=== PATIENT | female | born 1955 | race Caucasian/White ===

== ENCOUNTER 2020-02-22 08:20 | Outpatient (CLI) | payer MEDICARE, OTHER, SELFPAY ==
--- NOTE | ~2020-02-22 | CT_ITS ---
EXAMINATION: CT chest wo con DATE: 02/22/2020 08:51 INDICATION: Solitary pulmonary nodule TECHNIQUE: Computed tomography (CT) of the chest was performed without intravenous contrast. Automate d exposure control and iterative reconstruction technique were employed. Exam dose: 114.42 mGy-cm to ericka exam DLP. COMPARISON: 01/04/2019 CT chest 01/11/2017 CT chest abdomen pelvis FINDINGS: Normal heart size. Coronary artery calcifications. No pericardial or pleural effusion. No thoracic aortic aneurysm is evident. No hilar or mediastinal mass lesion or lymphadenopathy. There is thyroid goiter with multiple thyroid nodules, also present on 01/11/2017. There is complete resolution of the previously reported up to 9 mm mass in the left lower lobe. No suspicious pulmonary mass lesion. No pulmonary infiltrate or consolidation. Small sliding hiatal hernia. There are multiple stable hepatic cysts compared to 01/11/2017 CT abdomen examination. Status post cholecystectomy. The adrenal glands are of normal morphology. There is diffuse idiopathic skeletal hyperostosis of the thoracic spine. No suspicious osteolytic or osteoblastic lesions are noted. IMPRESSION: Complete resolution of 9 mm left lower lobe nodule, consistent with resolved presumably benign process, likely a pulmonary granuloma Reviewed, dictated and finalized at Location A. Reviewed, dictated and finalized at location B. IMPRESSION: Complete resolution of 9 mm left lower lobe nodule, consistent wit h resolved presumably benign process, likely a pulmonary granuloma
== END 2020-02-22 08:21 | disposition home or self-care (01) ==
LOC: ANHIMG 08:30
PROVIDERS: PCP Internal Medicine; Visit Provider Internal Medicine Critical Care Medicine
DX: R91.1 Solitary pulmonary nodule (principal)
CPT/HCPCS: 71250

== ENCOUNTER 2020-06-05 13:32 | Outpatient (CLI) | payer MEDICARE, OTHER, SELFPAY ==
--- NOTE | ~2020-06-05 | US_ITS ---
EXAMINATION: US thyroid EXAM DATE: 06/05/2020 14:04 INDICATION: hypothyroidism E03.9 Hypothyroidism, unspecified. TECHNIQUE: Multiple grayscale and Doppler images of the thyroid were obtained (by a technologist who performed the scan) and subsequently reviewed. Individual nodules and recommendations may be reporte d in accordance with TI-RADS system as designated by the 2017 ACR White Paper TI-RADS committee. Rey hagen is made to prior examination from 06/19/2019. FINDINGS: The right thyroid lobe measures 5.7 x 3.2 x 2.8 cm, the left measuring 5.4 x 3.1 x 2.3 cm, moderately enlarged. There is diffusely heterogeneous thyroid echogenicity with scattered thyroid nodules which are have continued to demonstrate longterm stability, consistent with benign histology. Diffuse thy roid hypervascularity. IMPRESSION: Stable multinodular goiter. Return to clinical follow-up and if additional palpable abn ormality develops a repeat ultrasound can be obtained. Reviewed, dictated and finalized at location B. 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 Return to clinical follow-up and if a dditional palpable abnormality develops a repeat ultrasound can be obtained.
== END 2020-06-05 13:33 | disposition home or self-care (01) ==
LOC: ANHIMG 13:40
PROVIDERS: PCP Internal Medicine; Visit Provider Internal Medicine Endocrinology, Diabetes & Metabolism
DX: E03.9 Hypothyroidism, unspecified (principal); E04.2 Nontoxic multinodular goiter
CPT/HCPCS: 76536

== ENCOUNTER 2020-06-12 07:50 | Outpatient (CLI) | payer MEDICARE, OTHER, SELFPAY ==
--- NOTE | ~2020-06-12 | DEXA_ITS ---
Bone Density Report Name: Erin Cameron Age: 64 Sex: Female Ethnicity: White Date of : 1955 Indication: postmenopausal; height loss; prior fracture; asthma or emphysema; Referring Provider: Stephanie, Elena Ardon Study: Bone densitometry was performed. Exam Date: June 12, 2020 Accession number: [id number] Bone Density: Region BMD T-score Z-score Classification AP Spine (L1-L4) 0.943 -0.9 0.9 Normal Femoral Neck (Left) 0.579 -2.4 -0.9 Osteopenia Total Hip (Left) 0.707 -1.9 -0.7 Osteopenia Total Hip Bilateral Avg 0.728 -1.8 -0.5 Osteopenia Femoral Neck (Right) 0.620 -2.1 -0.5 Osteopenia Total Hip (Right) 0.747 -1.6 -0.3 Osteopenia World Health Organization criteria for BMD impression classify patients as: Normal (T-score at or above -1.0), Osteopenia (T-score between -1.0 and -2.5), or Osteoporosis (T-score at or below -2.5). 10-year Fracture Risk(1): Major Osteoporotic Fracture 19% Hip Fracture 3.6% Reported Risk Factors: [place] (), Neck BMD=0.579, BMI=32.0, previous fracture (1) FRAX(R) Version 3.08. Fracture probability calculated for an untreated patient. Fracture probability may be lower if the patient has received treatment. Clinical Information Provided by Patient: Has had a low trauma fracture Has used the following medications: Vitamin D Has the following medical conditions: Asthma or Emphysema Patient maximum height was 66 Menopause Age: 49 No regular weight bearing exercise Drinks caffeinated beverages Onset of menses at age 12 Number of children 3 Impression: The patient has low bone mass, based on the Left Femoral Neck T-score. The patient has an estimated ten-year risk of hip fracture of 3.6% and an estimated ten-year risk of major fracture of 19%, based on the WHO FRAX algorithm. The patient has risk factors, including: previous fracture. Discussion: BONE DENSITY IS LOW AT ONE OR MORE SKELETAL SITES. THE PATIENT'S BMD AND CLINICAL RISK FACTORS CONTRIBUTE TO THIS PATIENT'S INCREASED RISK OF FRACTURE. This patient's lowest T-score is low at one or more skeletal sites. It meets the World Health Organization's (WHO) criteria for ?low bone mass? (T-score between -1.0 and -2.5). The patient's 10-year risk of hip fracture as calculated by FRAX exceeds the threshold where pharmacological therapy is recommended by the National Osteoporosis Foundation (NOF). However, all treatment decisions require clinical judgment and consideration of individual patient factors, including patient preferences, comorbidities, previous drug use, risk factors not captured in the FRAX model (e.g., frailty, falls, vitamin D deficiency, increased bone turnover, interval significant decline in bone density) and possible under or overestimation of fracture risk by FRAX. The patient should follow a
--- NOTE | ~2020-06-12 | MM_ITS ---
EXAMINATION: MM screening [facility] BI w richard HISTORY: Screening mammogram TECHNIQUE: Craniocaudal and mediolateral oblique 3-D tomosynthesis images were obtained and synthetic 2-D images were generated. CAD analysis was submitted and interpreted. COMPARISON: 05/03/2019, 03/29/2018, 03/18/2018, 03/15/2017 BREAST PARENCHYMAL COMPOSITION: There are scattered areas of fibroglandular density. FINDINGS: There is no evidence of suspicious mass, calcification, or architectural distortion to sugg est malignancy in either breast. There has been no suspicious interval change. IMPRESSION: 1. No mammographic evidence of malignancy. 2. Recommend routine screening mammography in one year. BI-RADS Category 1: Negative Reviewed, dictated and finalized at location A. CHECKER
== END 2020-06-12 07:51 | disposition home or self-care (01) ==
PROVIDERS: PCP Internal Medicine; Visit Provider Nurse Practitioner Obstetrics & Gynecology
DX: Z12.31 Encounter for screening mammogram for malignant neoplasm of breast (principal); N95.1 Menopausal and female climacteric states; M85.852 Other specified disorders of bone density and structure, left thigh; M85.851 Other specified disorders of bone density and structure, right thigh
CPT/HCPCS: 77063; 77067; 77080

== ENCOUNTER 2020-11-08 14:13 | Outpatient (CLI) | payer MEDICARE, OTHER, SELFPAY ==
--- NOTE | ~2020-11-08 | CT_ITS ---
CORRECTED REPORT EXAMINATION DESCRIPTION CORRECTED. 11/12/2020 JOHN EXAMINATION: CT LE LT wo con DATE: 11/08/2020 15:52 INDICATION: Left knee unilateral primary osteoarthritis. TECHNIQUE: Computed tomography (CT) of the left hip, knee, and ankle was performed without intravenous contrast. Automated exposure control and iterative reconstruction technique were employed. The dose-length product was 2422.06 mGy- cm. COMPARISON: None FINDINGS: Bone alignment is normal. No fracture. There is mild left hip osteoarthritis. Left knee demonstrates severe osteoarthritis of the medial and patellofemoral compartments and moderate osteoarthritis of lateral compartment. There is a small knee joint effusion. Achilles tendinopathy is noted. IMPRESSION: 1. Severe left knee osteoarthritis. 2. Small left knee joint effusion. Reviewed, dictated and finalized at location A. MTDD
[2020-11-08 15:34] LABS: Hematocrit 41.2 % (37.0-47.0); Hemoglobin 13.7 g/dL (12.0-15.0)
[2020-11-08 15:45] LABS: Albumin Level 4.3 g/dL (3.5-5.1); Estimated Glomerular Filt Rate > 60; Glucose 106 mg/dL (65-105)
--- NOTE | 2020-11-08 15:54 | ECG_ITS ---
Measurements Intervals [place] Rate: 87 P: 54 TN: 142 QRS: 48 QRSD: 89 T: 41 QT: 334 QTc: 403 Interpretive Statements SINUS RHYTHM NORMAL ECG Electronically Signed On 11-08-2020 16:11:40 CDT by Channing Robin D.O.
== END 2020-11-08 14:14 | disposition home or self-care (01) ==
PROVIDERS: PCP Internal Medicine; Visit Provider Orthopaedic Surgery
DX: G47.33 Obstructive sleep apnea (adult) (pediatric) (principal); I10 Essential (primary) hypertension; E11.9 Type 2 diabetes mellitus without complications; E03.9 Hypothyroidism, unspecified; M17.12 Unilateral primary osteoarthritis, left knee
CPT/HCPCS: 36415; 73700; 82040; 82565; 82947; 85014; 85018; 93005

== ENCOUNTER 2020-12-12 09:43 | Outpatient (CLI) | payer MEDICARE, OTHER, SELFPAY ==
[2020-12-12 11:12] LABS: Basophils Percent Auto 0.6 % (0.2-1.2); Eosinophils Absolute Auto 0.4 K/mm3 (0-0.3); Eosinophils Percent Auto 5.6 % (0-4.4); Hematocrit 44.7 % (37.0-47.0); Hemoglobin 14.3 g/dL (12.0-15.0); Immature Granulocyte Absolute 0.01 K/mm3 (0.00-0.031); Immature Granulocyte Percent A 0.2 % (0-0.5); Lymphocytes Absolute Auto 1.59 K/mm3 (0.9-3.2); Lymphocytes Percent Auto 25.4 % (18.3-44.2); Mean Corpuscular Hemoglobin 29.4 pg (26-34); Mean Platelet Volume 9.5 fl (7.4-10.4); Monocytes Absolute Auto 0.6 K/mm3 (0.1-0.6); Monocytes Percent Auto 9.9 % (2.6-8.5); Neutrophils Absolute Auto 3.6 K/mm3 (1.3-6.7); Neutrophils Percent Auto 58.3 % (45.5-73.1); Platelet Count Result 241 k/mm3 (150-375); Red Blood Count 4.86 M/mm3 (4.2-5.4); Red Cell Distribution Width 13.1 % (11.5-14.5); White Blood Count 6.3 K/mm3 (4.5-10.0)
[2020-12-12 11:31] LABS: Urine Cotinine NEGATIVE
== END 2020-12-12 09:44 | disposition home or self-care (01) ==
LOC: ANHSURGERY 09:45
PROVIDERS: PCP Internal Medicine; Visit Provider Orthopaedic Surgery
DX: M17.12 Unilateral primary osteoarthritis, left knee (principal); Z01.818 Encounter for other preprocedural examination
CPT/HCPCS: 80307; 85025; 87081

== ENCOUNTER → 2020-12-23 02:00 | Outpatient (CLI) | payer MEDICARE, OTHER, SELFPAY ==
[2020-12-25 12:59] LABS: SARS-CoV-2 RNA PCR Negative
== END ==
PROVIDERS: PCP Internal Medicine; Visit Provider Orthopaedic Surgery
DX: Z01.812 Encounter for preprocedural laboratory examination (principal); Z20.822 Contact with and (suspected) exposure to COVID-19
CPT/HCPCS: C9803; U0003; U0005

== ENCOUNTER 2020-12-27 14:16 | Observation (INO) | payer MEDICARE, OTHER, SELFPAY ==
[2020-12-12 09:53] VITALS: BMI 33.3
[2020-12-12 10:57] VITALS: BP 154/85; PULSE 85; RESP 16; TEMP 37.2; O2SAT 98
--- NOTE | 2020-12-25 10:27 | WPDANESEPPF ---
Anes - Initial Pre Proc Eval Procedure: Operation Date: 12/26/20 07:30 Proposed Procedures p Left Total Knee Replacement - Artie Marino MD Date/Time: 12/25/20 10:27 Surgeon: Artie Marino MD Pre Op Diagnosis: primary OA, left knee Patient Data Age: 65 Gender: F Height: 1.65 m Weight: 90.8 kg Last Vital Signs Temp 37.2 C 12/12/20 10:57 Pulse 85 12/12/20 10:57 Resp 16 12/12/20 10:57 BP 154/85 H 12/12/20 10:57 Pulse Ox 98 12/12/20 10:57 Allergies Allergy/AdvReac Type Severity Reaction Status Date / Time hydromorphone Allergy Intermediate Hives Verified 12/26/20 06:13 lisinopril Allergy Intermediate Headache Verified 12/26/20 06:13 povidone Allergy Intermediate Rash Verified 12/26/20 06:13 theophylline Allergy Intermediate Itching Verified 12/26/20 06:13 CIMETIDINE HCL AdvReac Intermediate Gastrointestinal Uncoded 12/26/20 06:13 Upset Home Medications Medication Instructions Recorded Confirmed Type grape seed extract 50 mg capsule 50 mg PO DAILY 06/09/19 12/26/20 History milk thistle 175 mg tablet 175 mg PO DAILY 06/09/19 12/26/20 History multivitamin 1 tablet PO DAILY 06/09/19 12/26/20 History naproxen sodium 220 mg capsule 220 mg PO PRN PRN 06/09/19 12/26/20 History olive leaf extract 250 mg capsule 250 mg PO DAILY 06/09/19 12/26/20 History raloxifene 60 mg tablet 60 mg PO DAILY 06/09/19 12/12/20 History diphenhydramine HCl 25 mg capsule 25 mg PO PRN PRN cap 05/16/20 12/12/20 History famotidine 20 mg tablet 20 mg PO PRN PRN 05/16/20 12/12/20 History esomeprazole magnesium 20 mg 20 mg PO PRN PRN 10/31/20 12/12/20 History capsule,delayed release omega-3 fatty acids 1,000 mg 1,000 mg PO DAILY 10/31/20 12/26/20 History capsule psyllium husk 0.4 gram capsule 0.4 g PO DAILY 10/31/20 12/26/20 History L.acidoph, paracasei,B. lactis 10 10 cell PO DAILY 11/18/20 12/26/20 History billion cell capsule cholecalciferol (vitamin D3) 10 2,500 mcg PO DAILY cap 11/18/20 12/26/20 History mcg (400 unit) capsule coenzyme [id number] E 100 mg-100 1 cap PO DAILY 11/18/20 12/26/20 History unit capsule magnesium 200 mg tablet 400 mg PO DAILY tablet 11/18/20 12/26/20 History valsartan 320 mg tablet 320 mg PO DAILY #90 tablet 11/18/20 12/26/20 Rx blood sugar diagnostic #100 ea 11/29/20 12/04/20 Rx cetirizine [Allergy Relief 10 mg PO DAILY PRN 12/12/20 12/12/20 History (cetirizine)] Patient hx anesthesia problems: none Family hx anesthesia problems: none PMFSH Past Medical History Medical History Asthma Hyperglycemia Hypothyroidism OIZEL (obstructive sleep apnea) Osteopenia Prediabetes Pulmonary nodule Thyroid Nodule Type 2 diabetes mellitus Type 2 diabetes mellitus with hyperglycemia Vitamin D deficiency, unspecified Surgical History Surgical History History of arthroscopy of left knee 01/27/01 and 07/19/15 History of arthroscopy of right knee 07/31/99 and 12/17/10 History of total knee arthroplasty Right 11/28/14 Family History Family History Mother Hypertension Asthma Family history of hepatitis Family history of lung cancer Patient's mother is Father Family history of diabetes mellitus in first degree relative Family history of hearing loss Patient's father is Diabetes mellitus Grandparent Family history of cardiovascular disease Family history of respiratory disorder Family history of malignant neoplasm of stomach Family history of pancreatic cancer Social History Social History Smoking status: Never smoker Second hand tobacco smoke exposure: No Additional smoking assessment comments: DENIES ANY FORM OF TOBACCO USE Alcohol intake: never Living arrangements: alone Spiritual c
--- NOTE | 2020-12-25 10:28 | WPDANESPNB ---
Anes - Peripheral Nerve Block Date/Time: 12/25/20 10:28 I have discussed with the patient/family/POA the placement of a peripheral nerve block for post-operative pain management, including associated risks, benefits, complications, and side effects. Alternative methods of post-operative analgesia were detailed. Questions were solicited and answers provided to the satisfaction of the patient/family/POA. Time-Out: A pre-procedural Time-Out was completed immediately before starting the procedure and confirmed: Patient Identification, Site, Procedure, Patient Position and the Availability of Requisite Equipment. Clinical Indications: Acute post-operative pain management requested by the operative surgeon. Nerve Block Insertion Note Anes-nerve block: adductor canal right Patient position: supine Skin prep: chlorhexidine Needle: 22 gauge, stimulating, insulated echogenic needle. Needle length: 80 mm Technique: ultrasound Injectate: bupivacaine 0.5% with epi 5 mcg/ml (30cc - no epi) Observations: tolerated well Complications: none Procedure start time:: 714 Procedure end time:: 718
[2020-12-26] VITALS (13 sets, daily range): BP systolic 103–161; BP diastolic 46–76; PULSE 87–116; RESP 14–20; TEMP 36–36.4; O2SAT 93–99; BMI 33.3
[2020-12-26] MEDS: ACETAMINOPHEN 500 MG TABLET 1000 MG PO (06:23)
[2020-12-26] MEDS: LACTATED RINGERS 1,000 ML 30 ML IV CONT ×2 (06:45→11:02)
[2020-12-26] MEDS: TRANEXAMIC ACID 1,000MG/ISO100 1,000 MG/100 ML BAG 200 MG IVPB (06:54)
[2020-12-26 07:02] LABS: Glucose Point of Care 123 mg/dl (65-105)
--- NOTE | 2020-12-26 07:09 | WPDHPUPDATE1 ---
History and Physical Update Update Date/Time: 12/26/20 07:09 History and Physical has been reviewed, including an updated exam of the patient. There are NO changes in the patient's condition. Risks, benefits, and alternatives have been discussed and questions answered. Patient agrees to proceed with procedure.
[2020-12-26] MEDS: ceFAZolin 2 GM/D5W 50 ML 2 GM/50 ML BAG IVPB (07:22)
--- NOTE | 2020-12-26 11:45 | PM.PROC ---
Procedure Note - Detailed Date of procedure: 12/26/20 Pre-op diagnosis: primary OA, left knee Post-op diagnosis: same Procedure performed: Total knee arthroplasty, left. Description of procedure: Custom total knee implant with the Conformis knee system. She had a significant arthrofibrosis and contracture of 15-80 degrees. This was corrected from 0-115 degrees postoperatively. Anesthesia: GETA and regional (subsartorial nerve block) Surgeon: Artie Marino MD Media Sales Executive: Jacy Diehl PA-C Estimated blood loss (mL): 150 Drains: No Pathology: none sent Complications: None Condition: stable Disposition: PACU Findings: Physician medical billing assistant, Jacy Diehl PA-C, required for surgery; including patient positioning, draping, tissue retraction, maintaining instrument position, cement removal, wound closure, and dressing placement. Preoperative antibiotics were given. The limb was prepped and draped in the usual sterile fashion with a well-padded tourniquet high on the thigh. The limb was exsanguinated and the tourniquet inflated to 300 mmHg. A longitudinal incision was created just medial to the patella. A trivector approach to the knee was performed. Arthrotomy was taken down through the joint capsule. No significant releases were initially taken. The femur was exposed and the F1 jig was applied. The coring tool was used to remove the cartilage for the F2 jig to sit flush with the bone. The jig was pinned and the distal cut carefully taken. Caliper measurements confirmed appropriate bony resections according to the preoperative templated plan. The tibia was cut using the jig after removing cartilage for the Herbert to sit. Proper alignment was checked with the alignment earnestine. The tibia was cut through the jig. Gap balancing was performed. Cut was lightly refresh and anteromedially. The F-4 cutting jig for the femur was applied. The anterior and chamfer cut was taken. The posterior chamber cuts were taken, through the next jig. Gap measurements were taken and the knee was trialed. Excellent alignment and soft tissue balancing was confirmed. Posterior cruciate ligament was recessed along the proximal tibia. Lateral retinacular release was required due to significant arthrofibrosis. Patellar tracking was excellent. The patella was cut for resurfacing. Three lug drills were drilled. Meniscal remnants were removed. Knee was copiously irrigated periodically throughout the procedure. The real implants were cemented into position. Excess cement was carefully removed. After final trialing, the real tibial inserts were placed. The wound was closed in layers with interrupted 1. Vicryl suture, 2-0 strata fix suture, 0 strata fix suture, 2-0 strata fix suture. Steri-Strips placed on the skin with the knee flexed. Sterile bulky dressing applied. The patient was brought to the recovery room in stable condition. There were no complications.
[2020-12-26] MEDS: fentaNYL CITRATE INJ (*CRX) 100 MCG/2 ML VIAL 25 MCG IV PUSH ×2 (12:16→12:20)
--- NOTE | 2020-12-26 12:45 | ADMGEN ---
This patient, Erin Cameron, was admitted to 2 Medical Room 257-01. Patient/family oriented to hospital policies and general routines including ID bracelet, bed and alarms, visiting hours, pain management, procedures, bathroom and other care routines, personal items, smoking policy, room service/diet, and visiting hours. Information on how to activate the Rapid Response Team has been discussed. Patient/Family are encouraged to report perceived risks to care and to ask questions if they do not understand what they are told or what they should do.
[2020-12-26] MEDS: DOCUSATE SODIUM 100 MG CAPSULE PO (17:22)
[2020-12-26] MEDS: KETOROLAC 15 MG/ML VIAL (*BKC) IV PUSH ×2 (17:22→23:05)
[2020-12-26] MEDS: ASPIRIN 81 MG ENTERIC TABLET PO (17:22)
[2020-12-26] MEDS: FAMOTIDINE 20 MG TABLET PO (20:32)
[2020-12-26] MEDS: SENNOSIDES 8.6 MG TABLET 17.2 MG PO (20:33)
--- NOTE | ~2020-12-27 | XR_ITS ---
EXAMINATION: XR knee LT 2V DATE: 12/26/2020 11:14 INDICATION: Total left knee arthroplasty. Postop. TECHNIQUE: 2 views of left knee were obtained. COMPARISON: Left knee radiographs 10/31/2020 FINDINGS: There is a total left knee arthroplasty with patellar resurfacing. Tibia demonstrates 10 de grees posterior angulation with respect to the tibial component. No fracture. There is gas in the kne e joint and soft tissues, consistent with recent surgery. IMPRESSION: 1. New total left knee arthroplasty. Reviewed, dictated and finalized at location B.
[2020-12-27 01:54] VITALS: BP 141/67; PULSE 92; RESP 18; TEMP 36.5; O2SAT 96
[2020-12-27 05:28] LABS: Basophils Percent Auto 0.2 % (0.2-1.2); Eosinophils Absolute Auto 0.1 K/mm3 (0-0.3); Eosinophils Percent Auto 1.4 % (0-4.4); Hematocrit 32.5 % (37.0-47.0); Hemoglobin 10.5 g/dL (12.0-15.0); Immature Granulocyte Absolute 0.02 K/mm3 (0.00-0.031); Immature Granulocyte Percent A 0.2 % (0-0.5); Lymphocytes Absolute Auto 1.32 K/mm3 (0.9-3.2); Lymphocytes Percent Auto 16.3 % (18.3-44.2); Mean Corpuscular HGB Conc 32.3 g/dl (32-36); Mean Corpuscular Hemoglobin 29.5 pg (26-34); Mean Corpuscular Volume 91.3 fl (80-100); Mean Platelet Volume 9.6 fl (7.4-10.4); Monocytes Percent Auto 12.9 % (2.6-8.5); Neutrophils Absolute Auto 5.6 K/mm3 (1.3-6.7); Platelet Count Result 189 k/mm3 (150-375); Red Blood Count 3.56 M/mm3 (4.2-5.4); Red Cell Distribution Width 13.1 % (11.5-14.5); White Blood Count 8.1 K/mm3 (4.5-10.0)
[2020-12-27] MEDS: KETOROLAC 15 MG/ML VIAL (*BKC) IV PUSH ×3 (05:59→17:39)
[2020-12-27 06:01] LABS: Anion Gap 4 mmol/L (8-16); Blood Urea Nitrogen 14 mg/dL (7-17); Calcium 8.5 mg/dL (8.4-10.2); Carbon Dioxide 30 mmol/L (22-30); Chloride 106 mmol/L (98-107); Estimated CRCL calculation 76 ml/min; Estimated Glomerular Filt Rate > 60; Glucose 139 mg/dL (65-105); Potassium 3.8 mmol/L (3.4-5.0); Sodium 140 mmol/L (137-145)
[2020-12-27 06:21] VITALS: BP 119/46; PULSE 59; RESP 16; TEMP 36.4; O2SAT 97
--- NOTE | 2020-12-27 07:21 | WPDANESPN ---
Anes - Prog Note Post-Op Date/Time: 12/27/20 07:21 Cardiovascular status: normal Respiratory status: normal Airway patency: baseline Mental status: baseline Post-Op hydration status: normal Vital Signs: Last Vital Signs Temp 36.5 C 12/27/20 01:54 Pulse 92 12/27/20 01:54 Resp 18 12/27/20 01:54 BP 141/67 H 12/27/20 01:54 Pulse Ox 96 12/27/20 01:54 Pain Score (VAS): 2 I/O: Intake & Output 12/26/20 12/26/20 12/27/20 15:59 23:59 07:59 Intake Total 400 390 350 Balance 400 390 350 Laboratory Tests 12/27/20 05:17 12/27/20 05:17 12/27/20 12/27/20 05:17 05:17 WBC 8.1 RBC 3.56 L Hgb 10.5 L D Hct 32.5 L MCV 91.3 MCH 29.5 MCHC 32.3 RDW 13.1 Plt Count 189 MPV 9.6 Immature Gran % (Auto) 0.2 Neut % (Auto) 69.0 Lymph % (Auto) 16.3 L [place] % (Auto) 12.9 H Eos % (Auto) 1.4 Baso % (Auto) 0.2 Lymph # (Auto) 1.32 [place] # (Auto) 1.0 H Eos # (Auto) 0.1 Baso # (Auto) 0.0 Abs Immat Gran (auto) 0.02 Absolute Neuts (auto) 5.6 Absolute Nucleated RBC 0.0 Nucleated RBC % 0.0 Sodium 140 Potassium 3.8 Chloride 106 Carbon Dioxide 30 Anion Gap 4 L BUN 14 Creatinine 0.70 Estim Creat Clear Calc 76 Estimated GFR > 60 Glucose 139 H Calcium 8.5 Post-procedural complaints: none Patient Feedback: Patient satisfied with anesthetic care.
[2020-12-27] MEDS: MAGNESIUM OXIDE 400 MG TABLET PO (08:55)
[2020-12-27] MEDS: DOCUSATE SODIUM 100 MG CAPSULE PO ×2 (08:55→16:56)
[2020-12-27] MEDS: MULTIVITAMINS THERAPEUTIC TAB (*BKC) 1 TABLET PO (08:55)
[2020-12-27] MEDS: FAMOTIDINE 20 MG TABLET PO ×2 (08:55→21:19)
[2020-12-27] MEDS: ASPIRIN 81 MG ENTERIC TABLET PO ×2 (08:55→16:56)
[2020-12-27] MEDS: RALOXIFENE HCL (*CHEMO) 60 MG TABLET PO (08:56)
[2020-12-27] MEDS: VALSARTAN 160 MG TABLET 320 MG PO (08:56)
[2020-12-27] MEDS: oxyCODONE HCL (*CRX) 5 MG TAB IR PO ×3 (08:56→15:35)
[2020-12-27 10:00] VITALS: BP 111/64; PULSE 77; RESP 18; TEMP 36.4; O2SAT 98
[2020-12-27 14:00] VITALS: BP 145/62; PULSE 86; RESP 16; TEMP 36.6; O2SAT 98
--- NOTE | 2020-12-27 16:27 | PM.PNORT ---
Progress Note: A&P Assessment and Plan (1) Status post total left knee replacement: Code(s): Z96.652 - Presence of left artificial knee joint Status: Acute Assessment and Plan: POD #1 Left TKA Patient had some trouble with PT today. Her block has just started to go away. She was unable to learn stairs due to quad weakness. She has 5 stairs to climb to get into her home. Pain manageable with pain medications. No calf tenderness. No numbness or tingling. Physical therapist stated that it was not safe for patient to go home due to quad weakness. Her block is starting to go away in the last hour. I recommend she stay one more night or until she is cleared by PT. Likely discharge tomorrow. Subjective Subjective Date/Time Seen: 12/27/20 16:27 POD #1 Left TKA Patient had some trouble with PT today. Her block has just started to go away. She was unable to learn stairs due to quad weakness. She has 5 stairs to climb to get into her home. Pain manageable with pain medications. No calf tenderness. No numbness or tingling. Review of Systems Constitutional: Constitutional: Denies difficulty sleeping, Denies fatigue, Denies fever(s), Denies headache(s) and Denies night sweats Eyes: Eyes: Denies loss of vision ENT: Denies dizziness, Denies headache(s) and Denies hearing loss Cardiovascular: Cardiovascular: Denies irregular heart rhythm and Denies dyspnea Respiratory: Respiratory: Denies cough and Denies dyspnea Gastrointestinal: Gastrointestinal: Denies change in bowel habits, Denies diarrhea, Denies nausea and Denies vomiting Genitourinary: Genitourinary: Denies nocturia, Denies dysuria and Denies urinary incontinence Musculoskeletal: Musculoskeletal: Denies abnormal gait Neurologic: Denies abnormal gait, Denies dizziness, Denies headache(s) and Denies loss of vision Psychiatric: Psychiatric: Denies anxiety and Denies depression Endocrine: Endocrine: Denies cold intolerance, Denies fatigue and Denies heat intolerance Exam Narrative: Exam Narrative: 65-year-old overweight female. Resting comfortably in chair. Alert and oriented x3. No acute distress. Wearing compression socks bilaterally. Dressing intact with no drainage. Moderate swelling. Slight ecchymosis. No erythema. No hematoma. No warmth. Range of motion limited due to pain. Calf nontender. Neurologic status intact. No varicosities. Distal pulses palpable. Light touch sensation intact. Good capillary refill. Objective Data Vital Signs Vital Signs: Vital Signs - 24 hr 12/26/20 20:41 12/27/20 01:54 12/27/20 06:21 Temperature 97.6 F 97.7 F 97.6 F Pulse Rate 87 92 59 L Respiratory Rate 16 18 16 Blood Pressure 141/60 H 141/67 H 119/46 L Pulse Oximetry 99 96 97 12/27/20 10:00 12/27/20 14:00 Temperature 97.6 F 97.9 F Pulse Rate 77 86 Respiratory Rate 18 16 Blood Pressure 111/64 145/62 H Pulse Oximetry 98 98 Intake/Output Intake/Output: Intake & Output 12/24/20 12/25/20 12/26/20 12/27/20 23:59 23:59 23:59 23:59 Intake Total 890 930 Output Total 400 Balance 890 530 Meds/Results Medications: Active Medications Generic Name Dose Route Start Last Admin Trade Name Freq PRN Reason Stop Dose Admin Aspirin 81 mg 12/26/20 17:00 12/27/20 08:55 Aspirin 81 Mg Enteric Tablet PO 81 mg BID CARLINE Administration Cyclobenzaprine HCl 10 mg 12/26/20 12:36 Cyclobenzaprine Hcl 10 Mg Tablet PO Q8H PRN Spasms Diphenhydramine HCl 25 mg 12/26/20 12:36 Diphenhydramine Hcl Cap 25 Mg Capsule PO Q6H PRN Itching Docusate Sodium 100 mg 12/26/20 17:00 12/27/20 08:55 Docusate Sodium 100 Mg Capsule PO 100 mg BID CARLINE Administration Famotidine 20 mg 12/26/20 21:00 12/27/20 08:55 Famotidine 20 Mg Tablet PO 20 mg Q12HR CRALINE Administration Ketorolac Tromethamine 15 mg 12/27/20 00:00 12/27/20 12:28 Ketorolac 15 Mg/Ml Vial (*Bkc) IV PUSH 12/27/20 18:01 15 mg Q
[2020-12-27] MEDS: oxyCODONE HCL (*CRX) 5 MG TAB IR 10 MG PO ×2 (19:28→23:05)
[2020-12-27 21:00] VITALS: BP 150/90; PULSE 100; RESP 18; TEMP 36.4; O2SAT 99
[2020-12-27] MEDS: SENNOSIDES 8.6 MG TABLET 17.2 MG PO (21:19)
[2020-12-27] MEDS: CYCLOBENZAPRINE HCL 10 MG TABLET PO (22:20)
[2020-12-28] MEDS: oxyCODONE HCL (*CRX) 5 MG TAB IR 10 MG PO ×6 (02:37→22:33)
[2020-12-28] MEDS: CYCLOBENZAPRINE HCL 10 MG TABLET PO (06:55)
[2020-12-28 07:00] VITALS: BP 168/68; PULSE 16; RESP 16; TEMP 36.6; O2SAT 95
[2020-12-28] MEDS: VALSARTAN 160 MG TABLET 320 MG PO (09:09)
[2020-12-28] MEDS: ASPIRIN 81 MG ENTERIC TABLET PO ×2 (09:09→18:11)
[2020-12-28] MEDS: DOCUSATE SODIUM 100 MG CAPSULE PO ×2 (09:09→18:16)
[2020-12-28] MEDS: MULTIVITAMINS THERAPEUTIC TAB (*BKC) 1 TABLET PO (09:09)
[2020-12-28] MEDS: RALOXIFENE HCL (*CHEMO) 60 MG TABLET PO (09:10)
[2020-12-28] MEDS: MAGNESIUM OXIDE 400 MG TABLET PO (09:10)
[2020-12-28] MEDS: FAMOTIDINE 20 MG TABLET PO ×2 (09:10→21:20)
[2020-12-28 10:22] VITALS: O2SAT 95
--- NOTE | 2020-12-28 12:30 | PC.NURSE ---
Patient c/o pain to left knee - rating it a 9/10. Oxycodone not due again for another two hours. Called [facility] and discussed pain issues. Orders received for around the clock Tylenol (1000 mg po q6hr).
[2020-12-28] MEDS: ACETAMINOPHEN 500 MG TABLET 1000 MG PO ×3 (13:06→23:50)
[2020-12-28 14:00] VITALS: BP 164/86; PULSE 94; RESP 14; TEMP 37.4; O2SAT 100
--- NOTE | 2020-12-28 19:32 | PM.PNORT ---
Progress Note: A&P Assessment and Plan (1) Status post total left knee replacement: Code(s): Z96.652 - Presence of left artificial knee joint Status: Acute Assessment and Plan: POD #2 Left TKA Patient struggling with pain control. She had a rough night and was unable to sleep due to the pain. Pain worse after PT. Pain better with Flexeril. I recommend she stay until pain is controlled. Will reassess tomorrow. Subjective Subjective Date/Time Seen: 12/28/20 19:32 POD #2 Left TKA Patient having trouble with pain control last night and today. Block has worn off completely. Pain not controlled with pain medication. Doing better with PT but is limited due to pain. No calf tenderness. No numbness or tingling. Review of Systems Constitutional: Constitutional: Denies difficulty sleeping, Denies fatigue, Denies fever(s), Denies headache(s) and Denies night sweats Eyes: Eyes: Denies loss of vision ENT: Denies dizziness, Denies headache(s) and Denies hearing loss Cardiovascular: Cardiovascular: Denies irregular heart rhythm and Denies dyspnea Respiratory: Respiratory: Denies cough and Denies dyspnea Gastrointestinal: Gastrointestinal: Denies change in bowel habits, Denies diarrhea, Denies nausea and Denies vomiting Genitourinary: Genitourinary: Denies nocturia, Denies dysuria and Denies urinary incontinence Musculoskeletal: Musculoskeletal: Denies abnormal gait Neurologic: Denies abnormal gait, Denies dizziness, Denies headache(s) and Denies loss of vision Psychiatric: Psychiatric: Denies anxiety and Denies depression Endocrine: Endocrine: Denies cold intolerance, Denies fatigue and Denies heat intolerance Exam Narrative: Exam Narrative: 65-year-old overweight female. Resting in bed. Patient uncomfortable. Alert and oriented x3. No acute distress. Wearing compression socks bilaterally. Dressing intact with no drainage. Moderate swelling. Slight ecchymosis. No erythema. No hematoma. No warmth. Range of motion limited due to pain. Calf nontender. Neurologic status intact. No varicosities. Distal pulses palpable. Light touch sensation intact. Good capillary refill. Objective Data Vital Signs Vital Signs: Vital Signs - 24 hr 12/27/20 21:00 12/28/20 07:00 12/28/20 10:22 Temperature 97.6 F 97.8 F Pulse Rate 100 16 L Respiratory Rate 18 16 Blood Pressure 150/90 H 168/68 H Pulse Oximetry 99 95 95 12/28/20 14:00 Temperature 99.3 F Pulse Rate 94 Respiratory Rate 14 Blood Pressure 164/86 H Pulse Oximetry 100 Intake/Output Intake/Output: Intake & Output 12/25/20 12/26/20 12/27/20 12/28/20 23:59 23:59 23:59 23:59 Intake Total 890 1170 1080 Output Total 400 1900 Balance 890 770 -820 Meds/Results Medications: Active Medications Generic Name Dose Route Start Last Admin Trade Name Freq PRN Reason Stop Dose Admin Acetaminophen 1,000 mg 12/28/20 13:05 12/28/20 18:10 Acetaminophen 500 Mg Tablet PO 1,000 mg Q6HR CARLINE Administration Aspirin 81 mg 12/26/20 17:00 12/28/20 18:11 Aspirin 81 Mg Enteric Tablet PO 81 mg BID CARLINE Administration Cyclobenzaprine HCl 10 mg 12/26/20 12:36 12/28/20 06:55 Cyclobenzaprine Hcl 10 Mg Tablet PO 10 mg Q8H PRN Administration Spasms Diphenhydramine HCl 25 mg 12/26/20 12:36 Diphenhydramine Hcl Cap 25 Mg Capsule PO Q6H PRN Itching Docusate Sodium 100 mg 12/26/20 17:00 12/28/20 18:16 Docusate Sodium 100 Mg Capsule PO 100 mg BID CARLINE Administration Famotidine 20 mg 12/26/20 21:00 12/28/20 09:10 Famotidine 20 Mg Tablet PO 20 mg Q12HR CARLINE Administration Loratadine 10 mg 12/26/20 13:49 Loratadine 10 Mg Tablet PO DAILY PRN Allergy Symptoms Magnesium Oxide 400 mg 12/27/20 09:00 12/28/20 09:10 Magnesium Oxide 400 Mg Tablet PO 400 mg DAILY CARLINE Administration Multivitamins Therapeutic 1 tablet 12/27/20 09:00 12/28/20 09:09 Multivitamins
[2020-12-28] MEDS: SENNOSIDES 8.6 MG TABLET 17.2 MG PO (21:27)
[2020-12-28 22:01] VITALS: BP 151/92; PULSE 103; RESP 16; TEMP 36.3; O2SAT 98
[2020-12-29] MEDS: oxyCODONE HCL (*CRX) 5 MG TAB IR 10 MG PO ×3 (02:18→10:22)
[2020-12-29] MEDS: ACETAMINOPHEN 500 MG TABLET 1000 MG PO ×2 (05:06→11:37)
[2020-12-29 06:50] VITALS: BP 130/80; PULSE 90; RESP 16; TEMP 36.4; O2SAT 97
[2020-12-29] MEDS: MULTIVITAMINS THERAPEUTIC TAB (*BKC) 1 TABLET PO (09:29)
[2020-12-29] MEDS: FAMOTIDINE 20 MG TABLET PO (09:29)
[2020-12-29] MEDS: RALOXIFENE HCL (*CHEMO) 60 MG TABLET PO (09:29)
[2020-12-29] MEDS: MAGNESIUM OXIDE 400 MG TABLET PO (09:29)
[2020-12-29] MEDS: VALSARTAN 160 MG TABLET 320 MG PO (09:29)
[2020-12-29] MEDS: ASPIRIN 81 MG ENTERIC TABLET PO (09:29)
[2020-12-29] MEDS: DOCUSATE SODIUM 100 MG CAPSULE PO (09:31)
--- NOTE | 2020-12-29 10:17 | PM.DS ---
DS: Admitting Diagnosis Admitting Diagnosis Admitting Diagnosis: OA knee Left DS: Discharge Diagnosis Discharge Diagnosis (1) Status post total left knee replacement: Code(s): Z96.652 - Presence of left artificial knee joint Status: Acute Assessment and Plan: Postop day 3: Left total Knee arthroplasty. Patient tolerated procedure well. No complications. She had trouble with PT POD 1 due to block. She had an trouble with pain control on POD2. Pain now manageable with pain medication. No numbness or tingling. We had a lengthy discussion regarding postoperative wound care, limitations, expectations, and exercises. Patient shows good understanding. She has had initial physical therapy and is tolerating it well POD3. DVT prophylaxis: 81 mg baby aspirin b.i.d. for 14 days. Pain medication: Percocet. Patient has followup appointment with Dr. Marino in 3 weeks. DS: Summary Hospital Course Reason for hospitalization: Left Total knee arthroplasty Hospital Course: Patient tolerated procedure well. Has had initial PT/OT. Had trouble with PT POD #1. Was unable to do the stairs because the block had not worn off. Patient had pain control issues POD #2. POD #3 pain controlled with pain medication. Status at Discharge Functional status at discharge: uses cane/walker Overall status at discharge: patient is progressing back to baseline Time Spent with Patient Time attestation: Total time spent providing and/or coordinating discharge services: Exam Narrative: Exam Narrative: 65-year-old overweight female. Resting comfortably in chair. Alert and oriented x3. No acute distress. Wearing compression socks bilaterally. Dressing intact with small area of dried bloody drainage on Mepilex. This has not changed since yesterday. Moderate swelling. No ecchymosis. No erythema. No hematoma. Range of motion limited due to pain. Calf nontender. Neurologic status intact. No varicosities. Distal pulses palpable. Discharge Plan Discharge Attending physician on discharge: Artie Marino Discharging Clinician: Jacy Diehl Patient Disposition: Home, Self-Care Activity: may shower Diet: regular Wound Care Instructions: follow printed instructions and other - see discharge instructions Discharge Instructions: See instruction sheet Patient Instructions: Precautions after Total Joint Replacement Surgery (GEN), Knee Replacement (DC) Stand Alone Forms: General Discharge Information Follow-up/Referrals: Jacy Diehl PA [Physician Strap Maker] - Discharge Medications: New aspirin 81 mg tablet,delayed release (DR/EC) 81 mg PO BID 14 Days Qty: 28 RF: 0 oxycodone-acetaminophen 5-325 mg tablet 1 - 2 tablet PO Q4-6H MDD 6 PRN (Reason: pain) Qty: 30 RF: 0 Continued raloxifene 60 mg tablet 60 mg PO DAILY RF: 0 olive leaf extract 250 mg capsule 250 mg PO DAILY RF: 0 grape seed extract [Grape Seed] 50 mg capsule 50 mg PO DAILY RF: 0 milk thistle 175 mg tablet 175 mg PO DAILY RF: 0 multivitamin [One-A-Day Essential] Tablet 1 tablet PO DAILY RF: 0 naproxen sodium [Aleve] 220 mg capsule 220 mg PO PRN PRN (Reason: Pain) RF: 0 diphenhydramine HCl [Benadryl] 25 mg capsule 25 mg PO PRN PRN (Reason: Allergy Symptoms) RF: 0 famotidine [Pepcid] 20 mg tablet 20 mg PO PRN PRN (Reason: Heartburn) RF: 0 coenzyme [id number] E 100-100 mg-unit capsule 1 cap PO DAILY RF: 0 Digestive Advantage Advanced 10 billion cell capsule 10 cell PO DAILY RF: 0 magnesium 200 mg tablet 400 mg PO DAILY RF: 0 valsartan 320 mg tablet 320 mg PO DAILY Qty: 90 RF: 1 omega-3 fatty acids [Fish Oil Concentrate] 1,000 mg capsule 1,000 mg PO DAILY RF: 0 psyllium husk [Metamucil] 0.4 gram capsule 0.4 g PO DAILY RF: 0 esomeprazole magnesium 20 mg capsule,delayed release(DR/EC) 20 mg PO PRN PRN (Reason: Heartburn) RF: 0
[2020-12-31 14:08] LABS: Glucose Point of Care 181 mg/dl (65-105)
== END 2020-12-29 12:00 | disposition home or self-care (01) ==
LOC: ANHSURGERY 14:58 → ANH2MED 14:58
PROVIDERS: Admitting Provider Orthopaedic Surgery; PCP Internal Medicine; Visit Provider Orthopaedic Surgery
PROC: (CPT 27447; principal; 2020-12-26 07:30)
DX: M17.12 Unilateral primary osteoarthritis, left knee (principal); G89.18 Other acute postprocedural pain; J45.909 Unspecified asthma, uncomplicated; E03.9 Hypothyroidism, unspecified; E11.9 Type 2 diabetes mellitus without complications; G47.33 Obstructive sleep apnea (adult) (pediatric); E55.9 Vitamin D deficiency, unspecified; E66.9 Obesity, unspecified; Z68.33 Body mass index [BMI] 33.0-33.9, adult
CPT/HCPCS: 27447; 64447; 36415; 73560; 80048; 82948; 85025; 97110; 97116; 97161; 97165; 97530; 97535; A9270; C1713; G0378; J0131; J0171; J0690; J1100; J1170; J1200; J1885; J2250; J2405; J2704; J2795; J3010; J7120

== ENCOUNTER 2021-04-17 07:07 | Emergency (ER) | payer MEDICARE, OTHER, SELFPAY ==
[2021-04-17 07:15] VITALS: BP 170/79; PULSE 97; RESP 16; TEMP 36.6
--- NOTE | 2021-04-17 08:43 | ED.BACK ---
HPI - Back Pain/Injury General Chief Complaint: Back Pain/Injury Stated Complaint: Sciatica Time Seen by Provider: 04/17/21 07:44 Source: patient and family Mode of arrival: ambulatory Limitations: no limitations History of Present Illness HPI Narrative: Patient 65 years old white female presents with pain at the right buttock, sharp, no radiation, started 2 days ago, worse with movement, better laying down still. Patient denies any fever, chills, nausea, vomiting, urinary symptoms. Patient reported the symptoms started after walking for a while on uneven ground. History of bilateral knee replacement, patient received oxycodone last night with some improvement. Patient cannot tolerate anti-inflammatory medicine because of acid reflux Related Data Home Medications Medication Instructions Recorded Confirmed grape seed extract 50 mg capsule 50 mg PO DAILY 06/09/19 03/24/21 milk thistle 175 mg tablet 175 mg PO DAILY 06/09/19 03/24/21 multivitamin 1 tablet PO DAILY 06/09/19 03/24/21 olive leaf extract 250 mg capsule 250 mg PO DAILY 06/09/19 03/24/21 raloxifene 60 mg tablet 60 mg PO DAILY 06/09/19 03/24/21 famotidine 20 mg tablet 20 mg PO PRN PRN 05/16/20 03/24/21 esomeprazole magnesium 20 mg 20 mg PO PRN PRN 10/31/20 03/24/21 capsule,delayed release omega-3 fatty acids 1,000 mg 1,000 mg PO DAILY 10/31/20 03/24/21 capsule psyllium husk 0.4 gram capsule 0.4 g PO DAILY 10/31/20 03/24/21 L.acidoph, paracasei,B. lactis 10 10 cell PO DAILY 11/18/20 03/24/21 billion cell capsule cholecalciferol (vitamin D3) 10 2,500 mcg PO DAILY cap 11/18/20 03/24/21 mcg (400 unit) capsule coenzyme [id number] E 100 mg-100 1 cap PO DAILY 11/18/20 03/24/21 unit capsule magnesium 200 mg tablet 400 mg PO DAILY tablet 11/18/20 03/24/21 Allergy Relief (cetirizine) 10 mg PO DAILY PRN 12/12/20 03/24/21 Allergies Allergy/AdvReac Type Severity Reaction Status Date / Time hydromorphone Allergy Intermediate Hives Verified 04/17/21 08:03 lisinopril Allergy Intermediate Headache Verified 04/17/21 08:03 povidone Allergy Intermediate Rash Verified 04/17/21 08:03 theophylline Allergy Intermediate Itching Verified 04/17/21 08:03 povidone-iodine Allergy Rash Verified 04/17/21 08:03 [From Betadine] cimetidine [From Tagamet] AdvReac Nausea and Verified 04/17/21 08:03 Vomiting CIMETIDINE HCL AdvReac Intermediate Gastrointestinal Uncoded 03/12/21 10:40 Upset Review of Systems Review of Systems: CONSTITUTIONAL: Denies fever, chills, or sweats. EYES: Denies visual changes, redness, or discharge. ENT: Denies rhinorrhea, congestion, sore throat, or otalgia. CARDIOVASCULAR: Denies chest pain, palpitations, or edema. RESPIRATORY: Denies cough or dyspnea. GASTROINTESTINAL: Denies abdominal pain, nausea, vomiting, or diarrhea. GENITOURINARY: Denies dysuria or hematuria. SKIN: Denies rash or itching. MUSCULOSKELETAL: Denies back pain, joint pain, or myalgia. NEUROLOGIC: Denies headache, numbness, or weakness. PSYCHIATRIC: Denies anxiety or depression. [facility] Past Medical History Medical History Asthma Hyperglycemia Hypothyroidism OZIEL (obstructive sleep apnea) Osteopenia Prediabetes Pulmonary nodule Thyroid Nodule Type 2 diabetes mellitus Type 2 diabetes mellitus with hyperglycemia Vitamin D deficiency, unspecified Surgical History Surgical History History of arthroscopy of left knee 01/27/01 and 07/19/15 History of arthroscopy of right knee 07/31/99 and 12/17/10 History of total knee arthroplasty Right 11/28/14 Family History Family History Mother Hypertension Asthma Family history of hepatitis Family history of lung cancer Patient's mother is Father Family history of diabetes mellitus in first degree relative Family history of hearing loss
[2021-04-17] MEDS: HYDROcodone/acetaminophen (*CRX) 7.5-325 MG TABLET 1 TAB PO (08:57)
[2021-04-17] MEDS: KETOROLAC (*BKC) 60 MG/2 ML VIAL IM (08:57)
[2021-04-17] MEDS: diazePAM (*CRX) 5 MG TABLET PO (09:00)
== END 2021-04-17 09:48 | disposition home or self-care (01) ==
PROVIDERS: Emergency Provider Emergency Medicine; PCP Internal Medicine
DX: M46.1 Sacroiliitis, not elsewhere classified (principal); M54.5 Low back pain; J45.909 Unspecified asthma, uncomplicated; E03.9 Hypothyroidism, unspecified; G47.33 Obstructive sleep apnea (adult) (pediatric); E11.9 Type 2 diabetes mellitus without complications; E55.9 Vitamin D deficiency, unspecified
CPT/HCPCS: 96372; 99283; A9270; J1885

== ENCOUNTER 2021-06-18 15:24 | Outpatient (CLI) | payer MEDICARE, OTHER, SELFPAY ==
--- NOTE | ~2021-06-18 | MM_ITS ---
EXAMINATION: MM screening [facility] BI w richard HISTORY: Screening mammogram TECHNIQUE: Craniocaudal and mediolateral oblique 3-D tomosynthesis images were obtained and synthetic 2-D images were generated. CAD analysis was submitted and interpreted. COMPARISON: 06/12/2020, 05/03/2019 BREAST PARENCHYMAL COMPOSITION: There are scattered areas of fibroglandular density. FINDINGS: There is no evidence of suspicious mass, calcification, or architectural distortion to sugg est malignancy in either breast. There has been no suspicious interval change. IMPRESSION: 1. No mammographic evidence of malignancy. 2. Recommend routine screening mammography in one year. BI-RADS Category 1: Negative Reviewed, dictated and finalized at location A. [employer]
== END 2021-06-18 15:25 | disposition home or self-care (01) ==
LOC: ANHIMG 15:30
PROVIDERS: PCP Internal Medicine; Visit Provider Advanced Practice Midwife
DX: Z12.31 Encounter for screening mammogram for malignant neoplasm of breast (principal)
CPT/HCPCS: 77063; 77067

== ENCOUNTER → 2021-10-14 10:48 | Outpatient (CLI) | payer MEDICARE, OTHER, SELFPAY ==
--- NOTE | ~2021-10-14 | CT_ITS ---
EXAMINATION: CT abdomen pelvis w con DATE: 10/14/2021 11:16 INDICATION: Diverticulitis. TECHNIQUE: Computed tomography (CT) of the abdomen and pelvis was performed with 100 cc Omnipaque 350 intravenous contrast. The dose-length product was 895.77 mGy-cm. Automated exposure control and iter ative reconstruction technique were employed. COMPARISON: No prior studies for comparison. . FINDINGS: Lung bases are unremarkable. Heart size normal. No significant pleural or pericardial effus ion. There are changes of partial left colectomy. Colon diverticulosis without evidence for diverticu litis. Normal appendix. There are multiple liver cysts. There are is a fat-containing umbilical herni a. No free air or free fluid. No acute osseous abnormality. Mild-moderate lumbar spondylosis. The spleen, pancreas, adrenal glands are unremarkable. There are small subcentimeter hypodensities of the kidneys, most likely benign. No significant vascular abnormality. No lymphadenopathy. IMPRESSION: 1. No acute abdominal abnormality. Reviewed, dictated and finalized at location B.
[2021-10-14 11:04] LABS: Estimated Glomerular Filt Rate > 60
== END ==
PROVIDERS: PCP Internal Medicine; Visit Provider Internal Medicine
DX: K57.92 Diverticulitis of intestine, part unspecified, without perforation or abscess without bleeding (principal); K42.9 Umbilical hernia without obstruction or gangrene; K76.89 Other specified diseases of liver; M47.816 Spondylosis without myelopathy or radiculopathy, lumbar region
CPT/HCPCS: 74177; Q9967

== ENCOUNTER 2021-11-13 01:14 | Day surgery (SDC) | payer MEDICARE, OTHER, SELFPAY ==
[2021-11-03 13:42] VITALS: BMI 33.7
[2021-11-13 08:29] VITALS: BP 178/91; PULSE 95; RESP 18; TEMP 36.6; O2SAT 100
[2021-11-13] MEDS: LACTATED RINGERS 1,000 ML 150 ML IV CONT (08:32)
[2021-11-13 08:37] LABS: Glucose Point of Care 130 mg/dl (65-105)
[2021-11-13] MEDS: AMPICILLIN 2 GM/NS 100 ML 2 GM/100 ML BAG IVPB (08:37)
--- NOTE | 2021-11-13 08:56 | WPDANESEPPF ---
Anes - Initial Pre Proc Eval Procedure: Operation Date: 11/13/21 09:45 Proposed Procedures p Screening Colonoscopy - Gutierrez Dobson MD Date/Time: 11/13/21 08:56 Surgeon: Gutierrez Dobson MD Pre Op Diagnosis: hx of colon polyps, family hx of colon ca Patient Data Age: 66 Gender: F Height: 1.65 m Weight: 90.3 kg Last Vital Signs Temp 36.6 C 11/13/21 08:29 Pulse 95 11/13/21 08:29 Resp 18 11/13/21 08:29 BP 178/91 H 11/13/21 08:29 Pulse Ox 100 11/13/21 08:29 Allergies Allergy/AdvReac Type Severity Reaction Status Date / Time hydromorphone Allergy Intermediate Hives Verified 11/13/21 08:27 lisinopril Allergy Intermediate Headache Verified 11/13/21 08:27 theophylline Allergy Intermediate Itching Verified 11/13/21 08:27 povidone-iodine Allergy Rash Verified 11/13/21 08:27 [From Betadine] iohexol AdvReac Hives Verified 11/13/21 08:27 [From contrast - CT, X-RAY] CIMETIDINE HCL AdvReac Intermediate Gastrointestinal Uncoded 11/13/21 08:27 Upset Home Medications Medication Instructions Recorded Confirmed Type grape seed extract 50 mg capsule 50 mg PO DAILY 06/09/19 11/13/21 History multivitamin 1 tablet PO DAILY 06/09/19 11/13/21 History olive leaf extract 250 mg capsule 250 mg PO DAILY 06/09/19 11/13/21 History famotidine 20 mg tablet 20 mg PO PRN PRN 05/16/20 11/13/21 History omega-3 fatty acids 1,000 mg 1,000 mg PO DAILY 10/31/20 11/13/21 History capsule psyllium husk 0.4 gram capsule 0.4 g PO DAILY 10/31/20 11/13/21 History L.acidoph, paracasei,B. lactis 10 10 cell PO DAILY 11/18/20 11/13/21 History billion cell capsule cholecalciferol (vitamin D3) 10 2,500 mcg PO DAILY cap 11/18/20 11/13/21 History mcg (400 unit) capsule coenzyme [id number] E 100 mg-100 1 cap PO DAILY 11/18/20 11/13/21 History unit capsule magnesium 200 mg tablet 400 mg PO DAILY tablet 11/18/20 11/13/21 History blood sugar diagnostic #100 ea 11/29/20 10/08/21 Rx Allergy Relief (cetirizine) 10 mg PO DAILY PRN 12/12/20 11/13/21 History Glucocil 1 tablet BYMOUTH DAILY 06/11/21 11/13/21 History Quil Pure 1 tablet PO DAILY 06/11/21 11/13/21 History melatonin 10 mg capsule 10 mg PO QHS 06/11/21 11/13/21 History milk thistle 175 mg tablet 325 mg PO DAILY tablet 06/11/21 11/13/21 History valsartan 320 mg tablet 320 mg PO DAILY #90 tablet 07/20/21 11/13/21 Rx cyclobenzaprine 10 mg tablet 10 mg PO .hs PRN #20 tablet 07/28/21 11/13/21 Rx calcium carb-vit [id number] 1 tablet PO DAILY 10/08/21 11/13/21 History 333 mg-200 unit-133 mg-5 mg tablet Laboratory Tests 11/13/21 08:31 POC Capillary Glucose 130 mg/dl H mg/dl (65-105) Patient hx anesthesia problems: none Family hx anesthesia problems: none Results Review: All pre-operative results and documents have been reviewed as part of the pre-operative evaluation. [facility] Past Medical History Medical History Asthma Hyperglycemia Hypothyroidism OZIEL (obstructive sleep apnea) Osteopenia Prediabetes Pulmonary nodule Thyroid Nodule Type 2 diabetes mellitus Type 2 diabetes mellitus with hyperglycemia Vitamin D deficiency, unspecified Surgical History Surgical History History of arthroscopy of left knee 01/27/01 and 07/19/15 History of arthroscopy of right knee 07/31/99 and 12/17/10 History of total knee arthroplasty Right 11/28/14 Family History Family History Mother Hypertension Asthma Family history of hepatitis Family history of lung cancer Patient's mother is Father Family history of diabetes mellitus in first degree relative Family history of hearing loss Patient's father is Diabetes mellitus Grandparent Family history of cardiovascular disease Family history of respiratory disorder Family history of malignan
--- NOTE | 2021-11-13 09:01 | WPDGICN ---
Assessment and Plan Assessment and plan (1) History of colon polyps: Code(s): Z86.010 - Personal history of colonic polyps Status: Acute Assessment and Plan: Patient has a history of colon polyp removed from the colon 2016. Plan is for surveillance colonoscopy now. (2) Family history of colon cancer in mother: Code(s): Z80.0 - Family history of malignant neoplasm of digestive organs Status: Acute Assessment and Plan: Patient's mother had colon cancer. Plan is for surveillance colonoscopy at 5 year intervals because of this. GI Consult Note Consult date/time: 11/13/21 09:01 HPI: Erin Cameron is a 66 year old female Presents for screening colonoscopy. Patient has a prior history of colon polyps. Most recently 2016. Family history is significant her mother had colon cancer. Patient reports 1 episode of rectal bleeding several months ago the concern over possible diverticular etiology versus hemorrhoids. Patient states bowel habits have returned to normal after that 1 episode. She denies any abdominal pain. She desires neoplasia screening. Review of Systems Review of Systems: All systems reviewed & are unremarkable except as noted in HPI and below PMFSH Past Medical History Medical History Asthma Hyperglycemia Hypothyroidism OZIEL (obstructive sleep apnea) Osteopenia Prediabetes Pulmonary nodule Thyroid Nodule Type 2 diabetes mellitus Type 2 diabetes mellitus with hyperglycemia Vitamin D deficiency, unspecified Surgical History Surgical History History of arthroscopy of left knee 01/27/01 and 07/19/15 History of arthroscopy of right knee 07/31/99 and 12/17/10 History of total knee arthroplasty Right 11/28/14 Family History Family History Mother Hypertension Asthma Family history of hepatitis Family history of lung cancer Patient's mother is Father Family history of diabetes mellitus in first degree relative Family history of hearing loss Patient's father is Diabetes mellitus Grandparent Family history of cardiovascular disease Family history of respiratory disorder Family history of malignant neoplasm of stomach Family history of pancreatic cancer Social History Social History Smoking status: Never smoker Second hand tobacco smoke exposure: No Additional smoking assessment comments: DENIES ANY FORM OF TOBACCO USE Alcohol intake: never Substance use: never Substance use type: does not use Living arrangements: alone Spiritual care concerns: No Meds Home Medications and Allergies Home Medications Medication Instructions Recorded Confirmed Type grape seed extract 50 mg capsule 50 mg PO DAILY 06/09/19 11/13/21 History multivitamin 1 tablet PO DAILY 06/09/19 11/13/21 History olive leaf extract 250 mg capsule 250 mg PO DAILY 06/09/19 11/13/21 History famotidine 20 mg tablet 20 mg PO PRN PRN 05/16/20 11/13/21 History omega-3 fatty acids 1,000 mg 1,000 mg PO DAILY 10/31/20 11/13/21 History capsule psyllium husk 0.4 gram capsule 0.4 g PO DAILY 10/31/20 11/13/21 History L.acidoph, paracasei,B. lactis 10 10 cell PO DAILY 11/18/20 11/13/21 History billion cell capsule cholecalciferol (vitamin D3) 10 2,500 mcg PO DAILY cap 11/18/20 11/13/21 History mcg (400 unit) capsule coenzyme [id number] E 100 mg-100 1 cap PO DAILY 11/18/20 11/13/21 History unit capsule magnesium 200 mg tablet 400 mg PO DAILY tablet 11/18/20 11/13/21 History blood sugar diagnostic #100 ea 11/29/20 10/08/21 Rx Allergy Relief (cetirizine) 10 mg PO DAILY PRN 12/12/20 11/13/21 History Glucocil 1 tablet BYMOUTH DAILY 06/11/21 11/13/21 History Quil Pure 1 tablet PO DAILY 06/11/21 11/13/21 History melato
[2021-11-13 10:05] VITALS: BP 101/64; PULSE 88; RESP 20; O2SAT 100
--- NOTE | 2021-11-13 10:07 | SUR.OPER ---
Addendum entered by Shama Morgan, [employer] 11/13/21 11:10: This polyp was fulgerated with the snare. Original Note: ONE SIGMOID COLON POLYP NOT RETRIEVED, DR. KENDALL AWARE, NO NEW ACTIONS/ORDERS AT THIS TIME.
[2021-11-13 10:15] VITALS: BP 111/68; PULSE 80; RESP 18; O2SAT 100
[2021-11-13 10:25] VITALS: BP 133/73; PULSE 80; RESP 20; O2SAT 100
== END 2021-11-13 10:39 | disposition home or self-care (01) ==
PROVIDERS: PCP Internal Medicine; Visit Provider Internal Medicine Gastroenterology
PROC: 0DJD8ZZ Inspection of Lower Intestinal Tract, Via Natural or Artificial Opening Endoscopic (ICD-10-PCS; CPT 45378; principal; 2021-11-13 09:45)
DX: Z12.11 Encounter for screening for malignant neoplasm of colon (principal); K63.5 Polyp of colon; J45.909 Unspecified asthma, uncomplicated; E03.9 Hypothyroidism, unspecified; E11.9 Type 2 diabetes mellitus without complications; E55.9 Vitamin D deficiency, unspecified; K64.8 Other hemorrhoids; K57.30 Diverticulosis of large intestine without perforation or abscess without bleeding; R91.1 Solitary pulmonary nodule; G47.33 Obstructive sleep apnea (adult) (pediatric); Z80.0 Family history of malignant neoplasm of digestive organs; Z90.49 Acquired absence of other specified parts of digestive tract; Z96.659 Presence of unspecified artificial knee joint
CPT/HCPCS: 45385; 82948; 88305; J0290; J2001; J2704; J7120

== ENCOUNTER 2022-01-19 13:30 | Outpatient (CLI) | payer MEDICARE, OTHER, SELFPAY ==
--- NOTE | ~2022-01-19 | US_ITS ---
EXAMINATION: US thyroid DATE: 01/19/2022 14:14 INDICATION: Nontoxic single thyroid nodule. TECHNIQUE: Multiple ultrasound images of the thyroid were obtained. COMPARISON: Ultrasound 06/05/2020, 11/04/16 FINDINGS: The right thyroid lobe measures 5.1 x 2.3 x 3.0 cm. The left thyroid lobe measures 5.5 x 2.8 x 2.9 c m. In the right thyroid lobe, there is a 2.6 cm predominantly solid, isoechoic, wider than tall nodu le with ill-defined margin without echogenic foci (TI-RADS TR3). In the right thyroid lobe, there is a 15 mm mixed cystic and solid, hypoechoic, wider than tall nodule with lobulated margin without echo genic foci (TR4). In the thyroid isthmus, there is a 2.2 cm mixed cystic and solid, isoechoic, wider than tall nodule with ill-defined margin without echogenic foci (TR2). In the left thyroid lobe, ther e is a 2.7 cm mixed cystic and solid, hypoechoic, wider than tall nodule with ill-defined margin with out echogenic foci (TR3). IMPRESSION: 1. Multinodular goiter, stable from 11/04/2016, likely benign. No follow-up is needed. Reviewed, dictated and finalized at location A. IMPRESSION: 1. Multinodular goiter, stable from 11/04/2016, likely benign. No follow-up is ne eded.
== END 2022-01-19 13:31 | disposition home or self-care (01) ==
PROVIDERS: PCP Internal Medicine; Visit Provider Internal Medicine Endocrinology, Diabetes & Metabolism
DX: E04.2 Nontoxic multinodular goiter (principal)
CPT/HCPCS: 76536

== ENCOUNTER 2022-02-09 11:09 | Outpatient (CLI) | payer MEDICARE, OTHER, SELFPAY ==
--- NOTE | 2022-02-09 11:44 | ECG_ITS ---
Measurements Intervals [place] Rate: 82 P: 57 [place]: 140 QRS: 27 QRSD: 87 T: 28 QT: 353 QTc: 413 Interpretive Statements SINUS RHYTHM BASELINE ARTIFACT- V11 NORMAL ECG Electronically Signed On 02-09-2022 12:03:19 CDT by Channing Robin D.O.
== END 2022-02-09 11:10 | disposition home or self-care (01) ==
LOC: ANHSURGERY 11:12
PROVIDERS: PCP Internal Medicine; Visit Provider Orthopaedic Surgery
DX: I10 Essential (primary) hypertension (principal); Z01.818 Encounter for other preprocedural examination
CPT/HCPCS: 93005

== ENCOUNTER 2022-02-12 01:07 | Day surgery (SDC) | payer MEDICARE, OTHER, SELFPAY ==
--- NOTE | 2022-02-05 15:06 | PC.NURSE ---
Report to the Outpatient Waiting Room, entrance under the green pavilion located off [facility], at time _0830 on date _02/12/22 . OR Time: _1030 . - You and your visitor will be asked a series of questions to screen for COVID 19 for your protection. - Only one visitor is allowed at this time. - The patient visitor is requested to leave or wait in car when not with patient. - A mask is required within the hospital. Patients may have clear liquids (water, carbonated beverages, clear teas, apple juice) until 3 hours prior to surgery with a maximum of 20 ounces. - No food from midnight until time of surgery - Infants may have breast milk until 4 hours before surgery, infant formula 6 hours prior to surgery. - Children will be allowed to drink immediately following surgery. If applicable, please bring a bottle or sippy cup to assist with drinking. Juice, water, soda, and popsicles are readily available. For infants on formula, please bring formula the day of surgery. Pacifiers are allowed. Take the following medications with a SIP of water the morning of surgery: ___CARVEDILOL Medications to discontinue per physician ___ALL VITAMINS AND SUPPLEMENTS 3 DAYS PRE OP Date to take last dose__02/08/22 Please no make-up, nail mongolian, hairspray, perfume, deodorant, or body powder the day of surgery. No jewelry (including any body piercings) or valuables the day of surgery, leave them at home. Please take a shower or bath the night before, or the morning of, surgery with an antibacterial soap. Wear comfortable, loose fitting clothing. Children are encouraged to wear pajamas. - Jewelry must be removed prior to entering the operating room. Rings and piercings that are not removed may be cut off. - The hospital will not accept responsibility for valuables. - Please leave all valuables, including medications, at home the day of surgery. If you are going home after surgery, a licensed sprinkler driver must drive you home. - NO public transportation without another adult. - We recommend that an adult stay with you for 24 hours following discharge. - We also recommend that you do not drive, make important decision, drink alcoholic beverages, or take any drugs that were not prescribed by your health care provider for at least 24 hours after your discharge time. For Pediatric surgeries, we recommend two adults accompany the child home (only one inside the building at this time). Follow any additional instructions given to you from your surgeon. If you or anyone in your household have experienced Covid symptoms in the past week, please notify your surgeon or the nurse liaison at the phone number below for possible testing. Telephone instructions given to __PATIENT and asked if any additional questions and then verbalized understanding. Patient advised to call surgeon office or pre surgery nurse liaison [phone] if any additional questions.
[2022-02-05 15:14] VITALS: BMI 35.1
--- NOTE | 2022-02-11 12:23 | WPDANESEPPF ---
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, Patient Data Age: 66 Gender: F Height: 1.65 m Weight: 95.75 kg Allergies Allergy/AdvReac Type Severity Reaction Status Date / Time iohexol Allergy Severe Throat Verified 02/12/22 08:38 [From contrast - CT, X-RAY] swelling, hives hydromorphone Allergy Intermediate Hives Verified 02/09/22 11:51 povidone-iodine Allergy Intermediate Rash Verified 02/12/22 08:38 [From Betadine] cimetidine AdvReac Intermediate Gastrointestinal Verified 02/11/22 12:21 Upset lisinopril AdvReac Intermediate Headache Verified 02/11/22 12:21 theophylline AdvReac Intermediate Itching Verified 02/12/22 08:38 Home Medications Medication Instructions Recorded Confirmed Type multivitamin (One-A-Day Essential 1 tablet PO DAILY 06/09/19 02/12/22 History tablet) olive leaf extract 250 mg capsule 150 mg PO DAILY 06/09/19 02/12/22 History famotidine 20 mg tablet (Pepcid) 20 mg PO PRN PRN Heartburn 05/16/20 02/09/22 History L.acidoph, paracasei,B. lactis 10 10 cell PO DAILY 11/18/20 02/12/22 History billion cell capsule (Digestive Advantage Advanced Probiotic) cholecalciferol (vitamin D3) 10 2,500 mcg PO DAILY 11/18/20 02/12/22 History mcg (400 unit) capsule coenzyme A55-icarwba E 100 mg-100 1 cap PO DAILY 11/18/20 02/12/22 History unit capsule cetirizine 10 mg capsule (Allergy 10 mg PO PRN PRN Allergy Symptoms 12/12/20 02/12/22 History Relief (cetirizine)) Glucocil 2 tablet BYMOUTH BID 06/11/21 02/12/22 History milk thistle 175 mg tablet 325 mg PO DAILY 06/11/21 02/12/22 History valsartan 320 mg tablet 320 mg PO DAILY #90 tabs 07/20/21 02/12/22 Rx calcium carb-vit O3-dxnzficfq-ixwt 2 tablet PO DAILY 10/08/21 02/12/22 History 333 mg-200 unit-133 mg-5 mg tablet blood sugar diagnostic (OneTouch #100 ea 12/01/21 02/09/22 Rx Verio test strips) melatonin 10 mg capsule 10 mg PO QHS PRN Insomnia 12/01/21 02/12/22 History biotin 5,000 mcg disintegrating 10,000 mcg PO DAILY 12/26/21 02/12/22 History tablet carvedilol 6.25 mg tablet 6.25 mg PO Q12H #180 tabs 12/26/21 02/12/22 Rx calcium polycarbophil 625 mg 1,250 mg PO DAILY 02/05/22 02/12/22 History tablet (FiberCon) omega 5-gvq-fcb-fish oil 100 1 cap PO DAILY 02/05/22 02/12/22 History mg-160 mg-1,000 mg capsule (Fish Oil) Patient hx anesthesia problems: none Family hx anesthesia problems: none Results Review: All pre-operative results and documents have been reviewed as part of the pre-operative evaluation. FORMERLY [facility] Past Medical History Medical History (Updated 02/11/22 @ 12:24 by Da Lopez MD) Asthma Diabetes type 2, controlled Essential (primary) hypertension Goiter High serum low density lipoprotein (LDL) cholesterol Hyperglycemia Hypothyroidism Obesity OZIEL (obstructive sleep apnea) Osteopenia Osteopenia Prediabetes Pulmonary nodule Thyroid Nodule Type 2 diabetes mellitus Type 2 diabetes mellitus with hyperglycemia Vitamin D deficiency, unspecified Surgical History Surgical History H/O colonoscopy History of arthroscopy of left knee 01/27/01 and 07/19/15 History of arthroscopy of right knee 07/31/99 and 12/17/10 History of total knee arthroplasty Right 11/28/14 Family History Family History Mother Hypertension Asthma Family history of hepatitis Family history of lung cancer Patient's mother is Father Family history of diabetes mellitus in first degree relative Family history of hearing loss Patient's father is Diabetes mellitus Grandparent Family history of
[2022-02-12] VITALS (8 sets, daily range): BP systolic 128–146; BP diastolic 64–80; PULSE 67–84; RESP 12–20; TEMP 36.2–36.7; O2SAT 95–100
[2022-02-12] MEDS: ACETAMINOPHEN 500 MG TABLET 1000 MG PO (09:12)
[2022-02-12] MEDS: LACTATED RINGERS 1,000 ML 30 ML IV CONT ×2 (09:15→11:25)
[2022-02-12] MEDS: KETOROLAC 15 MG/ML VIAL (*BKC) IV PUSH (09:20)
[2022-02-12 09:27] LABS: Glucose Point of Care 136 mg/dl (65-105)
--- NOTE | 2022-02-12 10:17 | WPDHPUPDATE1 ---
History and Physical Update Update Date/Time: 02/12/22 10:17 History and Physical has been reviewed, including an updated exam of the patient. There are NO changes in the patient's condition. Risks, benefits, and alternatives have been discussed and questions answered. Patient agrees to proceed with procedure.
[2022-02-12] MEDS: ceFAZolin 2 GM/D5W 50 ML 2 GM/50 ML BAG IVPB (10:23)
[2022-02-12] MEDS: BUPIVACAINE/EPINEPHRINE 0.5% 10 ML VIAL 20 ML INFILTRATE (10:52)
[2022-02-12 11:39] LABS: Glucose Point of Care 126 mg/dl (65-105)
[2022-02-12] MEDS: fentaNYL CITRATE INJ (*CRX) 100 MCG/2 ML VIAL 25 MCG IV PUSH ×2 (11:50→12:00)
--- NOTE | 2022-02-12 17:31 | P.OP_ITS ---
Procedure Note - Detailed Date of Procedure 02/12/22 Pre-op Diagnosis 1. Patellar clunk syndrome right knee. 2. Status post total knee arthroplasty done elsewhere. Post-op Diagnosis Same Procedure Performed Arthroscopic peripatellar synovial debridement right knee. Surgeon Artie Marino MD Anesthesia General Findings Notable overgrowth of tissue along the medial and proximal medial patella. There was a piece of calcified bone within this tissue overlying the patella which was quite significant and slightly mobile. This coincided with the patient's area of pain and sense of impingement. Description of Procedure The patient was identified and the surgical site confirmed and signed in the preoperative holding area. Antibiotics were started per protocol. She was brought to the operative room and transferred to the OR table. A general anesthetic was administered. Supine position with the operative lower extremity position in the leg tolliver after placement of a well padded tourniquet. The leg support was lowered and the contralateral limb was supported with a soft bolster. The knee was prepped and draped in the usual sterile fashion. A time- out was performed. The portal sites were marked and infiltrated with 0.5% Marcaine 20 mL. The limb was exsanguinated and the tourniquet inflated to 300 mL Hg. Standard inferolateral and inferomedial portals were established. Inflow was obtained with the saline pump. The camera was introduced. Diagnostic inspection of the joint was accomplished. The hypertrophic synovium about the patella was excised with the arthroscopic shaver and the radiofrequency probe. This was also used to cauterize the tissue. A significant overgrowth of tissue which was markedly calcified was excised. This was felt to be quite consistent with the patient's clinical presentation. The arthroscopic instruments were removed. The tourniquet released and wounds closed with subcutaneous 4-0 Monocryl absorbable suture. Steri strips and a sterile dressing were applied. A light elastic wrap was placed. The patient was extubated and brought to the recovery room in stable condition. Estimated Blood Loss 5 Drains No Complications No immediate complications Condition Stable Disposition PACU [facility] Billing Surgery - Charge Forward: Surgery Billing
== END 2022-02-12 13:37 | disposition home or self-care (01) ==
PROVIDERS: PCP Internal Medicine; Visit Provider Orthopaedic Surgery
PROC: (CPT 29870; principal; 2022-02-12 10:30)
DX: M25.861 Other specified joint disorders, right knee (principal); Z96.651 Presence of right artificial knee joint; I10 Essential (primary) hypertension; E11.9 Type 2 diabetes mellitus without complications; G47.33 Obstructive sleep apnea (adult) (pediatric); E55.9 Vitamin D deficiency, unspecified; M85.80 Other specified disorders of bone density and structure, unspecified site; E03.9 Hypothyroidism, unspecified; E78.00 Pure hypercholesterolemia, unspecified; E66.9 Obesity, unspecified; Z68.34 Body mass index [BMI] 34.0-34.9, adult
CPT/HCPCS: 29875; 82948; A9270; J0690; J1100; J1885; J2405; J2704; J3010; J7120

== ENCOUNTER 2022-07-22 07:45 | Outpatient (CLI) | payer MEDICARE, SELFPAY ==
--- NOTE | ~2022-07-22 | DEXA_ITS ---
Bone Density Report Name: TOAN PARSONS Age: 67 Sex: Female Ethnicity: White Date of : 1955 Indication: osteopenia; height loss; inflammatory bowel disease; asthma or emphysema; postmenopausal Referring Provider: RIKKI MCBRIDE Study: Bone densitometry was performed. Exam Date: July 22, 2022 Accession number: [id number] Bone Density: Region BMD T-score Z-score Classification AP Spine(L1-L4) 0.939 -1.0 1.0 Normal Femoral Neck (Left) 0.566 -2.6 -0.9 Osteoporosis Total Hip (Left) 0.721 -1.8 -0.4 Osteopenia Femoral Neck (Right) 0.600 -2.2 -0.6 Osteopenia Total Hip (Right) 0.723 -1.8 -0.4 Osteopenia Total Hip Mean 0.722 -1.8 -0.4 Osteopenia World Health Organization criteria for BMD impression classify patients as: Normal (T-score at or above -1.0), Osteopenia (T-score between -1.0 and -2.5), or Osteoporosis (T-score at or below -2.5). 10-year Fracture Risk: FRAX not reported because: Some T-score for Spine Total or Hip Total or Femoral Neck at or below -2.5 Previous Exams: Region Exam Age BMD T-score BMD Change BMD Change Date g/cm2 vs Baseline vs Previous AP Spine (L1-L4) 07/22/2022 67 0.939 -1.0 -0.004 (-0.4%) -0.004 (-0.4%) 06/12/2020 64 0.943 -0.9 Total Hip(Left) 07/22/2022 67 0.721 -1.8 0.014 (1.9%) 0.014 (1.9%) 06/12/2020 64 0.707 -1.9 Total Hip(Right) 07/22/2022 67 0.723 -1.8 -0.024 (-3.2%) -0.024 (-3.2%) 06/12/2020 64 0.747 -1.6 *Denotes significance at 95% confidence level, LSC for AP Spine = 0.022 g/cm2, LSC for Total Hip = 0.027 g/cm2 Clinical Information Provided by Patient: Has used the following medications: Vitamin D Has the following medical conditions: Asthma or Emphysema, Inflammatory bowel diseases Patient maximum height was 66 Menopause Age: 49 No regular weight bearing exercise Drinks caffeinated beverages Onset of menses at age 12 Number of children 3 Impression: The patient has osteoporosis, based on the Left Femoral Neck T-score. No significant bone loss was observed. Discussion: INCREASED RISK OF FRACTURE. BONE DENSITY IS UNDESIRABLY LOW AT ONE OR MORE SKELETAL SITES, CONSISTENT WITH POSTMENOPAUSAL OSTEOPOROSIS. This patient's lowest T-score meets the World Health Organization's (WHO) criteria for osteoporosis at one or more sites (T-score -2.5 or below). In untreated patients, the risk of osteoporotic fracture increases approximately two-fold for each 1.0 SD decrease
--- NOTE | ~2022-07-22 | MM_ITS ---
EXAMINATION: MM screening jerry BI w richard HISTORY: Screening TECHNIQUE: Craniocaudal and mediolateral oblique 3-D tomosynthesis images were obtained and synthetic 2-D images were generated. CAD analysis was submitted and interpreted. COMPARISON: Comparison to multiple prior studies sequentially, with oldest reviewed study dated 03/15. BREAST PARENCHYMAL COMPOSITION: There are scattered areas of fibroglandular density. FINDINGS: There is no evidence of suspicious mass, calcification, or architectural distortion to sugg est malignancy in either breast. There has been no suspicious interval change. IMPRESSION: 1. No mammographic evidence of malignancy. 2. Recommend routine screening mammography in one year. BI-RADS Category 1: Negative Reviewed, dictated and finalized at location A. 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
== END 2022-07-22 07:46 | disposition home or self-care (01) ==
LOC: ANHIMG 07:47
PROVIDERS: PCP Internal Medicine; Visit Provider Internal Medicine Endocrinology, Diabetes & Metabolism
DX: Z12.31 Encounter for screening mammogram for malignant neoplasm of breast (principal); Z78.0 Asymptomatic menopausal state; M85.852 Other specified disorders of bone density and structure, left thigh; M85.851 Other specified disorders of bone density and structure, right thigh; M81.0 Age-related osteoporosis without current pathological fracture
CPT/HCPCS: 77063; 77067; 77080

== ENCOUNTER 2023-06-15 12:11 | Outpatient (CLI) | payer MEDICARE, SELFPAY ==
--- NOTE | ~2023-06-15 | MMUS_ITS ---
EXAMINATION: MM diagnostic jerry BI w richard, US breast RT limited HISTORY: Mastodynia of the lateral and upper right breast TECHNIQUE: Craniocaudal, mediolateral, and mediolateral oblique 3-D tomosynthesis images of the sean ts were performed and synthetic 2-D images were generated. CAD analysis was submitted and interpreted . High resolution limited right breast ultrasound was performed. COMPARISON: 07/22/2022, 06/18/2021, 06/12/2020, 05/03/2019 BREAST PARENCHYMAL COMPOSITION: There are scattered areas of fibroglandular density. FINDINGS: MAMMOGRAPHIC FINDINGS: No suspicious mass, calcification, or architectural distortion are identified in either breast to sug gest malignancy. There has been no suspicious interval change. No mammographic correlate is identifie d for the patient's reported right breast pain. ULTRASOUND: There is no evidence of focal abnormal solid or cystic mass in the vicinity of the patient's reported right breast pain IMPRESSION: 1. No specific mammographic or sonographic correlate is identified for the patient's reported right b reast pain. Further evaluation at this time should be based on clinical assessment. Continued follow- up physical examination is recommended. 2. Recommend routine screening mammography in one year. BI-RADS Category 1: Negative Reviewed, dictated and finalized at location A. TER SKI EDGE IMPRESSION: 1. No specific mammographic or sonographic correlate is identified for the corry ent's reported right breast pain. Further evaluation at this time should be bas ed on clinical assessment. Continued follow-up physical examination is recommen ded. 2. Recommend routine screening mammography in one year. BI-RADS Category 1: Negative
== END 2023-06-15 12:12 | disposition home or self-care (01) ==
PROVIDERS: PCP Internal Medicine; Visit Provider Obstetrics & Gynecology
DX: N64.4 Mastodynia (principal)
CPT/HCPCS: 76642; 77062; 77066; G0279

== ENCOUNTER 2023-09-24 09:18 | Outpatient (CLI) | payer MEDICARE, SELFPAY ==
--- NOTE | ~2023-09-24 | DEXA_ITS ---
Bone Density Report Name: TOAN PARSONS Age: 68 Sex: Female Ethnicity: White Date of : 1955 Indication: osteopenia; monitoring treatment; height loss; inflammatory bowel disease; asthma or emphysema; postmenopausal Referring Provider: RIKKI MCBRIDE Study: Bone densitometry was performed. Exam Date: September 24, 2023 Accession number: [id number] Bone Density: Region BMD T-score Z-score Classification AP Spine(L1-L4) 0.970 -0.7 1.4 Normal Femoral Neck (Left) 0.554 -2.7 -0.9 Osteoporosis Total Hip (Left) 0.723 -1.8 -0.3 Osteopenia Femoral Neck (Right) 0.589 -2.3 -0.6 Osteopenia Total Hip (Right) 0.753 -1.6 -0.1 Osteopenia Total Hip Mean 0.738 -1.7 -0.2 Osteopenia World Health Organization criteria for BMD impression classify patients as: Normal (T-score at or above -1.0), Osteopenia (T-score between -1.0 and -2.5), or Osteoporosis (T-score at or below -2.5). 10-year Fracture Risk: FRAX not reported because: Some T-score for Spine Total or Hip Total or Femoral Neck at or below -2.5 Treated for osteoporosis Previous Exams: Region Exam Age BMD T-score BMD Change BMD Change Date g/cm2 vs Baseline vs Previous AP Spine (L1-L4) 09/24/2023 68 0.970 -0.7 0.027 (2.8%)* 0.031 (3.3%)* 07/22/2022 67 0.939 -1.0 -0.004 (-0.4%) -0.004 (-0.4%) 06/12/2020 64 0.943 -0.9 Total Hip(Left) 09/24/2023 68 0.723 -1.8 0.016 (2.3%) 0.002 (0.3%) 07/22/2022 67 0.721 -1.8 0.014 (1.9%) 0.014 (1.9%) 06/12/2020 64 0.707 -1.9 Total Hip(Right) 09/24/2023 68 0.753 -1.6 0.006 (0.8%) 0.030 (4.1%)* 07/22/2022 67 0.723 -1.8 -0.024 (-3.2%) -0.024 (-3.2%) 06/12/2020 64 0.747 -1.6 *Denotes significance at 95% confidence level, LSC for AP Spine = 0.022 g/cm2, LSC for Total Hip = 0.027 g/cm2 Clinical Information Provided by Patient: Is being treated for osteoporosis Has used the following medications: Reclast (i.e. zoledronate), Vitamin D, Calcium Has the following medical conditions: Asthma or Emphysema, Inflammatory bowel diseases Patient maximum height was 66 Menopause Age: 49 No regular weight bearing exercise Drinks caffeinated beverages Onset of menses at age 12 Number of children 3 Impression: The patient has osteoporosis, based on the Left Femoral Neck T-score. No significant bone loss was observed. Discussion: PATIENT UNDER TREATMENT WITH NO SIGNIFICANT BMD LOSS SINCE LAST EXAM. In an untr
== END 2023-09-24 09:19 | disposition home or self-care (01) ==
LOC: ANHIMG 09:20
PROVIDERS: PCP Internal Medicine; Visit Provider Internal Medicine Endocrinology, Diabetes & Metabolism
DX: M81.0 Age-related osteoporosis without current pathological fracture (principal); M85.852 Other specified disorders of bone density and structure, left thigh; M85.851 Other specified disorders of bone density and structure, right thigh
CPT/HCPCS: 77080

== ENCOUNTER 2023-11-15 10:38 | Outpatient (CLI) | payer MEDICARE, SELFPAY ==
--- NOTE | ~2023-11-15 | US_ITS ---
EXAMINATION: US thyroid DATE: 11/15/2023 11:51 INDICATION: Nontoxic goiter. TECHNIQUE: Multiple ultrasound images of the thyroid were obtained. COMPARISON: Ultrasound 01/19/2022 FINDINGS: The right thyroid lobe measures 5.2 x 3.1 x 3.4 cm. The left thyroid lobe measures 6.0 x 3.0 x 3.0 c m. The thyroid is filled with ill-defined nodules of similar ultrasound appearance without normal in tervening parenchyma. Vascularity is normal. IMPRESSION: 1. Chronic multinodular goiter, likely not clinically significant. Reviewed, dictated and finalized at location E.
== END 2023-11-15 10:39 | disposition home or self-care (01) ==
LOC: ANHIMG 10:39
PROVIDERS: PCP Internal Medicine; Visit Provider Internal Medicine Endocrinology, Diabetes & Metabolism
DX: E04.2 Nontoxic multinodular goiter (principal)
CPT/HCPCS: 76536

== ENCOUNTER 2023-11-19 16:21 | Emergency (ER) | payer MEDICARE, SELFPAY ==
[2023-11-19] VITALS (10 sets, daily range): BP systolic 166–205; BP diastolic 67–86; PULSE 62–90; RESP 13–27; TEMP 36.3–36.7; O2SAT 97–100
--- NOTE | ~2023-11-19 | CT_ITS ---
EXAMINATION: CT abdomen pelvis wo con DATE: 11/19/2023 18:39 INDICATION: Low abdominal pain. TECHNIQUE: Computed tomography (CT) of the abdomen and pelvis was performed without intravenous contr ast. Automated exposure control and iterative reconstruction technique were employed. The dose-length product was 678.62 mGy-cm. COMPARISON: None. FINDINGS: The visualized portions of the lung bases demonstrate mild scarring in paraspinal right low er lobe. There is a cluster of nodules in right lower lobe measuring up to 7 mm. There is mild left h ilar lymphadenopathy. No pleural effusion. The heart size is normal. There are coronary artery calcif ications. There is a trace pericardial effusion. There are cysts in the liver measuring up to 2.4 cm. The spleen, pancreas, and adrenal glands are normal. There are changes of cholecystectomy. There is cortical thinning of the pelvis. There is diverticulosis of the colon without evidence of diverticuli tis. There are no dilated loops of bowel. There is an anastomosis in the rectosigmoid. The appendix i s normal. There are no pathologically enlarged lymph nodes. There is no free intraperitoneal fluid. T here is severe lumbar spondylosis. There is mild chronic height loss of multiple vertebral bodies. IMPRESSION: 1. Pulmonary nodules measuring up to 7 mm, probably benign. Noncontrast low-dose chest CT is recommen ded in 6 months. 2. Mild left hilar lymphadenopathy, likely reactive. Reviewed, dictated and finalized at location E. IMPRESSION: 1. Pulmonary nodules measuring up to 7 mm, probably benign. Noncontrast low-dos e chest CT is recommended in 6 months. 2. Mild left hilar lymphadenopathy, likely reactive.
[2023-11-19 17:19] LABS: Basophils Percent Auto 0.7 % (0.2-1.2); Eosinophils Absolute Auto 0.2 K/mm3 (0-0.3); Eosinophils Percent Auto 3.7 % (0-4.4); Hematocrit 39.1 % (37.0-47.0); Hemoglobin 12.9 g/dL (12.0-15.0); Lymphocytes Percent Auto 23.1 % (18.3-44.2); Mean Corpuscular Hemoglobin 29.5 pg (26-34); Mean Corpuscular Volume 89.5 fl (80-100); Mean Platelet Volume 9.8 fl (7.4-10.4); Monocytes Absolute Auto 0.5 K/mm3 (0.1-0.6); Monocytes Percent Auto 11.3 % (2.6-8.5); Neutrophils Absolute Auto 2.7 K/mm3 (1.3-6.7); Neutrophils Percent Auto 61.2 % (45.5-73.1); Platelet Count Result 250 k/mm3 (150-375); Red Blood Count 4.37 M/mm3 (4.2-5.4); Red Cell Distribution Width 13.6 % (11.5-14.5); White Blood Count 4.3 K/mm3 (4.5-10.0)
[2023-11-19 17:34] LABS: Alanine Aminotransferase 25 U/L (6-35); Albumin Level 4.4 g/dL (3.5-5.1); Alkaline Phosphatase 66 U/L (38-126); Anion Gap 3 mmol/L (4-12); Aspartate Amino Transferase 33 U/L (14-36); Bilirubin,Total 0.7 mg/dL (0.2-1.3); Blood Urea Nitrogen 9 mg/dL (7-17); Calcium 8.9 mg/dL (8.4-10.2); Carbon Dioxide 29 mmol/L (22-30); Chloride 109 mmol/L (98-107); Estimated CRCL calculation 85 ml/min; Estimated Glomerular Filt Rate > 60; Glucose 110 mg/dL (65-110); Lipase 65 U/L (23-300); Sodium 141 mmol/L (137-145)
[2023-11-19 17:48] LABS: Appearance Urine Clear (Clear); Bacteria Urine None Seen /hpf; Bilirubin Urine Negative (Negative); Blood Urine Trace (Negative); Color Urine Yellow (Yellow); Glucose Urine UA Negative (Negative); Ketones Urine Negative (Negative); Leukocyte Esterase Ur 1+ LEU/UL (Negative); Need Manual Microscopic Reviewed; Nitrate Urine Negative (Negative); Non Pathogenic Casts 0-2; Protein Urine Negative (Negative); RBC Urine 0-2 /hpf (0-2); Specific Grav Ur 1.009 (1.001-1.035); Squamous Epithelial Cell Urine None Seen /hpf (Few); Urobilinogen Urine 0.2 mg/dL (<2.0); WBC Urine 0-5 /hpf (0-3); pH Urine 6.5 (5.0-9.0)
[2023-11-19 17:56] LABS: Add Urine Microscopic? YES
[2023-11-19] MEDS: SODIUM CHLORIDE 0.9% IV 1,000 ML 999 ML IV CONT (18:42)
[2023-11-19] MEDS: ACETAMINOPHEN 500 MG TABLET 1000 MG PO (18:42)
[2023-11-19] MEDS: fentaNYL CITRATE INJ (*CRX) 100 MCG/2 ML VIAL 25 MCG IV PUSH (18:43)
--- NOTE | 2023-11-19 19:20 | ED.ABDPAIN ---
HPI - Abdominal Pain General Chief Complaint: Abdominal Pain Stated Complaint: abd pain Time Seen by Provider: 11/19/23 16:58 Source: patient Mode of arrival: ambulatory Limitations: no limitations History of Present Illness HPI narrative: Patient is a 68-year-old female who presents to the ED with report of lower abdominal discomfort. Patient reports she has been having intermittent pain throughout her left and right lower abdomen over the last 1 month. She has history of diverticulitis s/p partial colectomy and states pain felt similar. She was prescribed Levaquin and Flagyl by her primary care doctor at the end of November and finished this some improvement of symptoms. States pain became worse over the last 1 week, worse today which prompted her presentation. She does report diarrhea, denies rectal bleeding or melena. Denies nausea or vomiting. Denies fever. Denies urinary trouble. Related Data Home Medications Medication Instructions Recorded Confirmed multivitamin (One-A-Day Essential 1 tablet PO DAILY 06/09/19 11/16/23 tablet) L.acidoph, paracasei,B. lactis 10 10 cell PO DAILY 11/18/20 11/16/23 billion cell capsule (Digestive Advantage Advanced Probiotic) coenzyme [id number] E 100 mg-100 1 cap PO DAILY 11/18/20 11/16/23 unit capsule milk thistle 175 mg tablet 325 mg PO DAILY 06/11/21 11/16/23 calcium carb-vit X8-[id number]-drwv 2 tablet PO DAILY 10/08/21 11/16/23 333 mg-200 unit-133 mg-5 mg tablet melatonin 10 mg capsule 10 mg PO QHS PRN Insomnia 12/01/21 11/16/23 omega 6-tpj-mrw-fish oil 100 1 cap PO DAILY 02/05/22 11/16/23 mg-160 mg-1,000 mg capsule (Fish Oil) diphenhydramine HCl 12.5 mg 12.5 mg PO QHS PRN Allergy Symptoms 07/03/22 11/16/23 chewable tablet (Children's Benadryl Allergy) turmeric root extract 500 mg 500 mg PO DAILY 07/03/22 11/16/23 capsule Allergies Allergy/AdvReac Type Severity Reaction Status Date / Time iohexol Allergy Severe Throat Verified 11/19/23 18:18 [From contrast - CT, X-RAY] swelling, hives hydromorphone Allergy Intermediate Hives Verified 11/19/23 18:18 povidone-iodine Allergy Intermediate Rash Verified 11/19/23 18:18 [From Betadine] clioquinol [From Vioform-HC] Allergy Mild Swelling Verified 11/19/23 18:18 hydrocortisone Allergy Mild Swelling Verified 11/19/23 18:18 [From Vioform-HC] cimetidine AdvReac Intermediate Gastrointestinal Verified 11/19/23 18:18 Upset lisinopril AdvReac Intermediate Headache Verified 11/19/23 18:18 theophylline AdvReac Intermediate Itching Verified 11/19/23 18:18 Review of Systems Review of Systems: CONSTITUTIONAL: Denies fever, chills, or sweats. GASTROINTESTINAL: See HPI. GENITOURINARY: Denies dysuria or hematuria. MUSCULOSKELETAL: Denies back pain, extremity pain, myalgia. All systems reviewed & are unremarkable except as noted in HPI and below PMFSH Past Medical History Medical History Asthma COVID-19 Diabetes type 2, controlled Diverticulitis Essential (primary) hypertension Goiter High serum low density lipoprotein (LDL) cholesterol History of open sigmoidectomy History of vaginal delivery Hyperglycemia Hypothyroidism Obesity OZIEL (obstructive sleep apnea) Osteopenia Osteopenia Pulmonary nodule Thyroid Nodule Vitamin D deficiency, unspecified Surgical History Surgical History H/O colonoscopy History of arthroscopy of left knee 01/27/01 and 07/19/15 History of arthroscopy of right knee 07/31/99 and 12/17/10 History of section x2 History of cholecystectomy History of dilation and curettage x3 History of total knee arthroplasty Right 11/28/14 Family History Family History Mother Hypertension Asthma Family history of hepatitis Family history of lung cancer Patient's mother is Father Patient's father is Diabetes mellitus Heart disease Grandparent Heart disease Cerebrovascular accident Social History Social History Smoking status: Never smoker Second hand tobacco smoke exposure: No Additional smoking assessment comments: DENIES ANY FORM OF TOBACCO USE Alcohol intake: never Substance use: never Substance use type: does not use Lack of Transportation: No Lack of Food: Never True Current Housing: I Have Housing Concerned About Future Housing: No Difficulty Paying Gas/Electric Bills: No Difficulty Paying for Meds: No Currently Unemployed: No Education: Trade/Vocational Certificate Difficulty w/ Childcare or Family Care: No Living arrangements: alone Gender identity (if verbalized by the patient): Female Sexual Orientation (if Verbalized by the Patient): Straight or Heterosexual Spiritual care concerns: No Exam Narrative: GENERAL: Well appearing, obese with BMI of 32.0, non-toxic, in no acute distress. HEAD: Normocephalic, atraumatic. RESPIRATORY: Airway patent, respirations nonlabored. Clear to auscultation bilaterally, no rales, rhonchi, wheezing. CARDIOVASCULAR: Regular rate and rhythm without murmurs, rubs, or gallops. ABDOMINAL: Soft, mild tenderness diffusely throughout lower abdomen, worst in the right lower quadrant, no rebound. Nondistended. Normoactive BS. MUSCULOSKELETAL: Moves all extremities. No gross deformities. SKIN: Warm, dry, normal color. NEURO: A&O X3. Speech clear. PSYCHIATRIC: Appropriate mood and affect. Normal interaction. Course Vital Signs Vital signs: Vital Signs Temperature 97.3 F L 11/19/23 16:24 Pulse Rate 90 11/19/23 16:24 Respiratory Rate 16 11/19/23 16:24 Blood Pressure 205/86 H 11/19/23 16:24 Pulse Oximetry 98 11/19/23 16:24 Oxygen Delivery Room Air 11/19/23 16:24 Temperature 97.9 F 11/19/23 18:15 Pulse Rate 62 11/19/23 20:17 Respiratory Rate 18 11/19/23 20:17 Blood Pressure 167/78 H 11/19/23 20:17 Pulse Oximetry 98 11/19/23 20:17 Oxygen Delivery Room Air 11/19/23 16:24 MDM - Abdominal Pain MDM Narrative Medical decision making narrative: Patient presented to ED with 1 month history of intermittent lower abdominal pain, history of diverticulitis, has finished a course of antibiotics recently, complaining of persistent diarrhea and pain. Vital signs are stable upon arrival. Patient in no acute distress. Cbc without leukocytosis or anemia. CMP unremarkable. Stable electrolytes and kidney function. Urinalysis clear. CT scan of abdomen pelvis was obtained and without acute intra-abdominal findings. Does show diverticulosis, no evidence of diverticulitis. Does show evidence of pulmonary nodule, which I made patient aware of. She reports history of this. Patient feeling better with supportive therapy in the ED. Discussed possibility of IBS, gas pains, gastroenteritis, musculoskeletal pain. Advised patient to continue Tylenol, Imodium as needed for diarrhea, will prescribe Bentyl. Patient has follow-up appointment with GI on Wednesday. Advised patient to keep this appointment, stay well hydrated, discussed strict return precautions. She is in agreement with plan and feels comfortable with discharge home. Discharged in stable condition. Medical Records Attestation: I reviewed the patient's medical records. Lab Data Attestation: I reviewed the patient's lab results. 11/19/23 17:11 11/19/23 17:11 Labs: Lab Results 11/19/23 11/19/23 Range/Units 17:11 17:18 WBC 4.3 L (4.5-10.0) K/mm3 RBC 4.37 (4.2-5.4) M/mm3 Hgb 12.9 (12.0-15.0) g/dL Hct 39.1 (37.0-47.0) % MCV 89.5 (80-100) fl MCH 29.5 (26-34) pg MCHC 33.0 (32-36) g/dl RDW 13.6 (11.5-14.5) % Plt Count 250 (150-375) k/mm3 MPV 9.8 (7.4-10.4) fl Immature Gran % (Auto) 0.0 (0-0.5) % Neut % (Auto) 61.2 (45.5-73.1) % Lymph % (Auto) 23.1 (18.3-44.2) % [place] % (Auto) 11.3 H (2.6-8.5) % Eos % (Auto) 3.7 (0-4.4) % Baso % (Auto) 0.7 (0.2-1.2) % Lymph # (Auto) 1.00 (0.9-3.2) K/mm3 [place] # (Auto) 0.5 (0.1-0.6) K/mm3 Eos # (Auto) 0.2 (0-0.3) K/mm3 Baso # (Auto) 0.0 (0.0-0.1) K/mm3 Abs Immat Gran (auto) 0.00 (0.00-0.031) K/mm3 Absolute Neuts (auto) 2.7 (1.3-6.7) K/mm3 Absolute Nucleated RBC 0.000 (0.0-0.012) K/mm3 Nucleated RBC % 0.0 (0.0-0.2) % Sodium 141 (137-145) mmol/L Potassium 4.0 (3.4-5.0) mmol/L Chloride 109 H (98-107) mmol/L Carbon Dioxide 29 (22-30) mmol/L Anion Gap 3 L (4-12) mmol/L BUN 9 D (7-17) mg/dL Creatinine 0.60 L (0.7-1.0) mg/dL Estim Creat Clear Calc 85 ml/min Estimated GFR > 60 (59 - ) Glucose 110 (65-110) mg/dL Calcium 8.9 (8.4-10.2) mg/dL Total Bilirubin 0.7 (0.2-1.3) mg/dL AST 33 (14-36) U/L ALT 25 (6-35) U/L Alkaline Phosphatase 66 (38-126) U/L Total Protein 7.0 (6.3-8.2) g/dL Albumin 4.4 (3.5-5.1) g/dL Lipase 65 (23-300) U/L Urine Color Yellow (Yellow) Urine Appearance Clear (Clear) Urine pH 6.5 (5.0-9.0) Ur Specific [place] 1.009 (1.001-1.035) Urine Protein Negative (Negative) mg/dL Urine Glucose (UA) Negative (Negative) mg/dL Urine Ketones Negative (Negative) mg/dL Ur Blood (Man) Trace (Negative) Urine Nitrate Negative (Negative) Urine Bilirubin Negative (Negative) Urine Urobilinogen 0.2 (<2.0) mg/dL Add Ur Microanalysis Reviewed Leukocyte Esterase Rfl 1+ H (Negative) MARLENE/UL Urine RBC 0-2 (0-2) /hpf Urine WBC 0-5 (0-3) /hpf Ur Squamous Epith Cells None seen (Few) /hpf Urine Bacteria None seen /hpf Urine Casts 0-2 Imaging Data Attestation: I personally reviewed and interpreted this imaging study as follows: Radiologist's impression: ITS Impressions Abdomen/Pelvis CT 11/19/23 18:44 IMPRESSION: 1. Pulmonary nodules measuring up to 7 mm, probably benign. Noncontrast low-dose chest CT is recommended in 6 months. 2. Mild left hilar lymphadenopathy, likely reactive. Discharge Plan Discharge Clinical Impression: Intermittent lower abdominal pain, Incidental pulmonary nodule Diarrhea Qualifiers: Diarrhea type: unspecified type Qualified Code(s): R19.7 - Diarrhea, unspecified Patient Disposition: Home, Self-Care Condition: Stable Instructions: Antibiotic Form, Acute Diarrhea (ED), Abdominal Pain (ED) Additional Instructions: Your workup here was reassuring. You may continue orju-rey-csfggor Imodium as needed for diarrhea. Recommend Tylenol and/or Bentyl as needed for abdominal discomfort. Stay well hydrated. Follow-up with your primary care doctor and GI for further evaluation. Return to the ED if you experience worsening or severe abdominal pain, rectal bleeding, dark black stools, unable to keep down food or drink, persistent fevers, or any other symptoms of concern. Follow-up with your PCP for further evaluation of pulmonary nodule. Prescriptions: New dicyclomine 20 mg tablet 20 mg PO TID PRN (Reason: Abdominal Discomfort) Qty: 15 0RF No Action multivitamin [One-A-Day Essential] Tablet 1 tablet PO DAILY milk thistle 175 mg tablet 325 mg PO DAILY coenzyme [id number] E 100-100 mg-unit capsule 1 cap PO DAILY Digestive Advantage Advanced 10 billion cell capsule 10 cell PO DAILY (DME) OneTouch Verio test strips Strip See Rx Instructions .Route Qty: 100 5RF Rx Instructions: Use to check BS 1 time daily . calcium carb-D3-mag [id number] zw-hybj-tm-mg tablet 2 tablet PO DAILY Rx Instructions: administer with a meal cholecalciferol (vitamin D3) 25 mcg (1,000 unit) tablet 75 mcg PO DAILY 90 Days Qty: 270 1RF carvedilol 6.25 mg tablet 6.25 mg PO Q12H Qty: 180 3RF Rx Instructions: must administer with a meal/food omeprazole 20 mg capsule,delayed release(DR/EC) 20 mg PO BID Qty: 180 3RF valsartan 320 mg tablet 320 mg PO DAILY Qty: 90 3RF diphenoxylate-atropine [Lomotil] 2.5-0.025 mg tablet 1 - 2 tablet PO QID PRN (Reason: diarrhea) Qty: 20 0RF melatonin 10 mg capsule 10 mg PO QHS PRN (Reason: Insomnia) albuterol sulfate 90 mcg/actuation HFA aerosol inhaler 1 - 2 puff inhalation Q4-6H PRN (Reason: shortness of breath or wheezing) Qty: 8.5 1RF turmeric root extract 500 mg capsule 500 mg PO DAILY diphenhydramine HCl [Children's Benadryl Allergy] 12.5 mg tablet,chewable 12.5 mg PO QHS PRN (Reason: Allergy Symptoms) Fish Oil 100-160-1,000 mg Capsule 1 cap PO DAILY (DME) OneTouch Verio test strips Strip See Rx Instructions .Route Qty: 50 3RF Rx Instructions: As directed to check blood sugar once daily (DME) lancets 25 gauge misc See Rx Instructions .Route Qty: 100 3RF Rx Instructions: As directed to check blood sugar once daily Follow-up/Referrals: Justin Aguilera DO [Primary Care Provider] - Steven Messer MD [Physician] - Time of Disposition: 20:19
--- NOTE | 2023-11-19 19:33 | PC.NURSE ---
this rn assumed care of patient. this rn took patient report from PARUL Rausch.
== END 2023-11-19 20:27 | disposition home or self-care (01) ==
PROVIDERS: Emergency Provider Physician Assistant; PCP Internal Medicine
DX: R10.32 Left lower quadrant pain (principal); R10.31 Right lower quadrant pain; R91.1 Solitary pulmonary nodule; R19.7 Diarrhea, unspecified; J45.909 Unspecified asthma, uncomplicated; I10 Essential (primary) hypertension; E11.9 Type 2 diabetes mellitus without complications; E03.9 Hypothyroidism, unspecified; E55.9 Vitamin D deficiency, unspecified; G47.33 Obstructive sleep apnea (adult) (pediatric); M85.80 Other specified disorders of bone density and structure, unspecified site; Z96.651 Presence of right artificial knee joint; Z86.16 Personal history of COVID-19; Z90.49 Acquired absence of other specified parts of digestive tract
CPT/HCPCS: 36415; 74176; 80053; 81001; 83690; 85025; 96361; 96374; 99284; A9270; J3010; J7030

== ENCOUNTER 2024-01-07 06:56 | Emergency (ER) | payer MEDICARE, SELFPAY ==
[2024-01-07 07:02] VITALS: BP 195/80; PULSE 86; RESP 18; TEMP 36.4; O2SAT 98
--- NOTE | 2024-01-07 07:08 | ED.GENADULT ---
HPI - General Adult General Chief complaint: Neck Pain/Injury Stated complaint: neck pain Time Seen by Provider: 01/07/24 06:59 History of Present Illness HPI narrative: This is a pleasant 68-year-old female presenting to the ED for neck pain. 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 When she was throwing the ball she felt pain in her left neck /trapezius. It is achy pain that is worse with movement. She says she feels associated muscle spasm sometimes when she moves. She has been treating her pain with ibuprofen and alternating heat and ice packs. Patient came in today because the pain was not improving. Patient denies falls, fevers chills chest pain difficulty pain or neurologic deficits. Related Data Home Medications Medication Instructions Recorded Confirmed multivitamin (One-A-Day Essential 1 tablet PO DAILY 06/09/19 12/06/23 tablet) L.acidoph, paracasei,B. lactis 10 10 cell PO DAILY 11/18/20 12/06/23 billion cell capsule (Digestive Advantage Advanced Probiotic) coenzyme S00-[id number] E 100 mg-100 1 cap PO DAILY 11/18/20 12/06/23 unit capsule milk thistle 175 mg tablet 325 mg PO DAILY 06/11/21 12/06/23 calcium carb-vit O5-wosrfkzyi-bkhc 2 tablet PO DAILY 10/08/21 12/06/23 333 mg-200 unit-133 mg-5 mg tablet melatonin 10 mg capsule 10 mg PO QHS PRN Insomnia 12/01/21 12/06/23 omega 6-vsc-kwv-fish oil 100 1 cap PO DAILY 02/05/22 12/06/23 mg-160 mg-1,000 mg capsule (Fish Oil) diphenhydramine HCl 12.5 mg 12.5 mg PO QHS PRN Allergy Symptoms 07/03/22 12/06/23 chewable tablet (Children's Benadryl Allergy) turmeric root extract 500 mg 500 mg PO DAILY 07/03/22 12/06/23 capsule Allergies Allergy/AdvReac Type Severity Reaction Status Date / Time iohexol Allergy Severe Throat Verified 01/07/24 07:09 [From contrast - CT, X-RAY] swelling, hives hydromorphone Allergy Intermediate Hives Verified 01/07/24 07:09 povidone-iodine Allergy Intermediate Rash Verified 01/07/24 07:09 [From Betadine] clioquinol [From Vioform-HC] Allergy Mild Swelling Verified 01/07/24 07:09 hydrocortisone Allergy Mild Swelling Verified 01/07/24 07:09 [From Vioform-HC] cimetidine AdvReac Intermediate Gastrointestinal Verified 01/07/24 07:09 Upset lisinopril AdvReac Intermediate Headache Verified 01/07/24 07:09 theophylline AdvReac Intermediate Itching Verified 01/07/24 07:09 PMFSH Past Medical History Medical History Asthma COVID-19 Diabetes type 2, controlled Diverticulitis Essential (primary) hypertension Goiter High serum low density lipoprotein (LDL) cholesterol History of open sigmoidectomy History of vaginal delivery Hyperglycemia Hypothyroidism Obesity OZIEL (obstructive sleep apnea) Osteopenia Osteopenia Pulmonary nodule Thyroid Nodule Vitamin D deficiency, unspecified Surgical History Surgical History H/O colonoscopy History of arthroscopy of left knee 01/27/01 and 07/19/15 History of arthroscopy of right knee 07/31/99 and 12/17/10 History of section x2 History of cholecystectomy History of dilation and curettage x3 History of total knee arthroplasty Right 11/28/14 Family History Family History Mother Hypertension Asthma Family history of hepatitis Family history of lung cancer Patient's mother is Father Patient's father is Diabetes mellitus Heart disease Grandparent Heart disease Cerebrovascular accident Social History Social History Smoking status: Never smoker Second hand tobacco smoke exposure: No Additional smoking assessment comments: DENIES ANY FORM OF TOBACCO USE Alcohol intake: never Substance use: never Substance use type: does not use Lack of Transportation
[2024-01-07] MEDS: KETOROLAC 30 MG/ML VIAL (*BKC) IM (07:14)
[2024-01-07] MEDS: LIDOCAINE 5% PATCH 1 PATCH TRANSDERM (07:14)
[2024-01-07] MEDS: ACETAMINOPHEN 500 MG TABLET 1000 MG PO (07:14)
[2024-01-07] MEDS: methocarbamoL 750 MG TABLET 1500 MG PO (07:14)
[2024-01-07 07:40] VITALS: BP 140/64; PULSE 81; RESP 18; O2SAT 97
== END 2024-01-07 08:02 | disposition home or self-care (01) ==
LOC: ANHED 07:32
PROVIDERS: Emergency Provider Emergency Medicine; PCP Internal Medicine
DX: S46.812A Strain of other muscles, fascia and tendons at shoulder and upper arm level, left arm, initial encounter (principal); X50.0XXA Overexertion from strenuous movement or load, initial encounter; E11.9 Type 2 diabetes mellitus without complications; G47.33 Obstructive sleep apnea (adult) (pediatric); E55.9 Vitamin D deficiency, unspecified; E66.9 Obesity, unspecified; Z68.34 Body mass index [BMI] 34.0-34.9, adult
CPT/HCPCS: 96372; 99283; A9270; J1885

== ENCOUNTER 2024-02-03 13:38 | Emergency (ER) | payer MEDICARE, SELFPAY ==
--- NOTE | ~2024-02-03 | XR_ITS ---
XR abdomen/kub 1V Ordering provider: Rosalie Wilson NP History: . R flank pain . Comparison: None. FINDINGS: BOWEL: Nonobstructive bowel gas pattern. ORGANOMEGALY: None. SIGNIFICANT PATHOLOGIC CALCIFICATIONS: None. OTHER: No free air is seen under the diaphragm. Degenerative changes of the spine. Bilateral sacroiliacs. Pubic symphysitis. Postoperative changes in the pelvis. IMPRESSION: NO ACUTE ABDOMINAL FINDINGS. Reviewed, dictated and finalized at location A.
[2024-02-03 13:59] VITALS: BP 152/67; PULSE 79; RESP 16; TEMP 36.6; O2SAT 100
--- NOTE | 2024-02-03 14:26 | ED.FEMALEGU ---
HPI - Female Genitourinary General Chief complaint: Urogenital-Female Stated complaint: lower back pain right side,urinating more Time Seen by Provider: 02/03/24 14:26 Source: patient Mode of arrival: ambulatory Limitations: no limitations History of Present Illness HPI Narrative: 68-year-old female presents with complaint of intermittent right-sided low back aching for the past 3-4 weeks. Movement, sitting, bending over does not change pain. Began having urinary frequency, urgency 2-3 days ago. Afebrile. No chills. 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 Patient having normal bowel movements, denies constipation. Denies nausea vomiting. All systems reviewed and negative except as noted above. Related Data Home Medications Medication Instructions Recorded Confirmed multivitamin (One-A-Day Essential 1 tablet PO DAILY 06/09/19 12/06/23 tablet) L.acidoph, paracasei,B. lactis 10 10 cell PO DAILY 11/18/20 12/06/23 billion cell capsule (Digestive Advantage Advanced Probiotic) coenzyme [id number] E 100 mg-100 1 cap PO DAILY 11/18/20 12/06/23 unit capsule milk thistle 175 mg tablet 325 mg PO DAILY 06/11/21 12/06/23 calcium carb-vit U6-jergrmuew-aapv 2 tablet PO DAILY 10/08/21 12/06/23 333 mg-200 unit-133 mg-5 mg tablet melatonin 10 mg capsule 10 mg PO QHS PRN Insomnia 12/01/21 12/06/23 omega 0-cpl-gsi-fish oil 100 1 cap PO DAILY 02/05/22 12/06/23 mg-160 mg-1,000 mg capsule (Fish Oil) diphenhydramine HCl 12.5 mg 12.5 mg PO QHS PRN Allergy Symptoms 07/03/22 12/06/23 chewable tablet (Children's Benadryl Allergy) turmeric root extract 500 mg 500 mg PO DAILY 07/03/22 12/06/23 capsule Allergies Allergy/AdvReac Type Severity Reaction Status Date / Time iohexol Allergy Severe Throat Verified 02/03/24 14:31 [From contrast - CT, X-RAY] swelling, hives hydromorphone Allergy Intermediate Hives Verified 02/03/24 14:31 povidone-iodine Allergy Intermediate Rash Verified 02/03/24 14:31 [From Betadine] clioquinol [From Vioform-HC] Allergy Mild Swelling Verified 02/03/24 14:31 hydrocortisone Allergy Mild Swelling Verified 02/03/24 14:31 [From Vioform-HC] cimetidine AdvReac Intermediate Gastrointestinal Verified 02/03/24 14:31 Upset lisinopril AdvReac Intermediate Headache Verified 02/03/24 14:31 theophylline AdvReac Intermediate Itching Verified 02/03/24 14:31 Review of Systems Review of Systems: CONSTITUTIONAL: Denies fever, chills, or sweats. EYES: Denies visual changes, redness, or discharge. ENT: Denies rhinorrhea, congestion, sore throat, or otalgia. CARDIOVASCULAR: Denies chest pain, palpitations, or edema. RESPIRATORY: Denies cough or dyspnea. GASTROINTESTINAL: Denies abdominal pain, nausea, vomiting, or diarrhea. GENITOURINARY: Denies dysuria or hematuria. Reports frequency, urgency. SKIN: Denies rash or itching. MUSCULOSKELETAL: Reports right-sided low back pain. Denies joint pain, or myalgia. NEUROLOGIC: Denies headache, numbness, or weakness. PSYCHIATRIC: Denies anxiety or depression. All other systems reviewed are negative, except as documented in HPI. [facility] Past Medical History Medical History Asthma COVID-19 Diabetes type 2, controlled Diverticulitis Essential (primary) hypertension Goiter High serum low density lipoprotein (LDL) cholesterol History of open sigmoidectomy History of vaginal delivery Hyperglycemia Hypothyroidism Obesity OZIEL (obstructive sleep apnea) Osteopenia Osteopenia Pulmonary nodule Thyroid Nodule Vitamin D deficiency, unspecified Surgical History Surgical History H/O colonoscopy History of arthroscopy of left knee 01/27/01 and 07/19/15 History of arthroscopy of right knee 07/31/99 and 12/17/10 History of section x2 History of cholecystectomy History of dilation and cur
== END 2024-02-03 15:20 | disposition home or self-care (01) ==
PROVIDERS: Emergency Provider Nurse Practitioner Family; PCP Internal Medicine
DX: M54.50 Low back pain, unspecified (principal); R35.0 Frequency of micturition; J45.909 Unspecified asthma, uncomplicated; E11.9 Type 2 diabetes mellitus without complications; I10 Essential (primary) hypertension; E03.9 Hypothyroidism, unspecified; E04.9 Nontoxic goiter, unspecified; E66.9 Obesity, unspecified; Z68.32 Body mass index [BMI] 32.0-32.9, adult; M85.80 Other specified disorders of bone density and structure, unspecified site; E55.9 Vitamin D deficiency, unspecified; Z96.651 Presence of right artificial knee joint
CPT/HCPCS: 74018; 87086; 99213; G0463

== ENCOUNTER 2024-05-10 13:32 | Outpatient (CLI) | payer MEDICARE, SELFPAY ==
--- NOTE | ~2024-05-10 | US_ITS ---
EXAMINATION: US thyroid DATE: 05/10/2024 14:21 INDICATION: Nontoxic single thyroid nodule. TECHNIQUE: Multiple ultrasound images of the thyroid were obtained. COMPARISON: Ultrasound 11/15/2023, 01/31/15 FINDINGS: The right thyroid lobe measures 4.7 x 3.0 x 3.2 cm. The left thyroid lobe measures 4.9 x 2.8 x 2.8 c m. There are numerous nodules in the thyroid. In the right thyroid lobe, there is a 2.0 cm predomina ntly solid, hypoechoic, wider than tall nodule with lobular margin without echogenic foci (TI-RADS TR 4). In the left thyroid lobe, there is a 2.3 cm mixed cystic and solid, hypoechoic, wider than tall n odule with ill-defined margin without echogenic foci (TR3). IMPRESSION: 1. Multinodular goiter, stable from 01/31/2015, likely not clinically significant. No follow-up is need ed. Reviewed, dictated and finalized at location A. IMPRESSION: 1. Multinodular goiter, stable from 01/31/2015, likely not clinically significant . No follow-up is needed.
--- NOTE | ~2024-05-10 | CT_ITS ---
CT Scan of the Chest without Contrast: Clinical Indication: Other nonspecific abnormal finding of lung field, lung nodule Technique: Contiguous sections were acquired throughout the chest without intravenous contrast. Dose reduction technique was used on this scan by utilizing automated exposure control and iterative recon struction technique. The dose-length product (DLP) was 427.10 mGy-cm. COMPARISON: 02/22/2020 Findings: Stable enlarged, somewhat heterogeneous thyroid gland. There is no evidence of any significant mediastinal, hilar or axillary lymphadenopathy. Extensive cor onary artery calcification are present. There is no evidence of pleural or pericardial effusion. 4 mm right upper lobe pulmonary nodule present (axial image 41). 6 mm left upper lobe pulmonary nodul e present (axial image 61). Images through the upper abdomen reveal stable hepatic cysts. Impression: 4 mm right apical pulmonary nodule. 6 mm left upper lobe pulmonary nodule. According to Fleischner [facility] criteria, for a low-risk patient, recommend 6-12 month follow-up CT, then consider additional 1 8-[address] For a high-risk patient, follow-up CT scans at 6-12 months and 18-24 months are recomm ended. Reviewed, dictated and finalized at location . Impression: 4 mm right apical pulmonary nodule. 6 mm left upper lobe pulmonary nodule. Acco rding to Fleischner Society criteria, for a low-risk patient, recommend 6-12 mo nth follow-up CT, then consider additional 18-[address]. For a high-risk corry ent, follow-up CT scans at 6-12 months and 18-24 months are recommended.
== END 2024-05-10 13:33 | disposition home or self-care (01) ==
PROVIDERS: PCP Nurse Practitioner Family; Visit Provider Physician Assistant
DX: E04.2 Nontoxic multinodular goiter (principal); R91.8 Other nonspecific abnormal finding of lung field
CPT/HCPCS: 71250; 76536

== ENCOUNTER 2024-09-15 11:32 | Outpatient (CLI) | payer MEDICARE, SELFPAY ==
--- NOTE | ~2024-09-15 | XR_ITS ---
EXAMINATION: XR chest 2V 09/15/2024 11:59 INDICATION: Cough PROCEDURE: 2 view chest COMPARISON: 07/15/2016 FINDINGS: The lungs are clear. The cardiomediastinal silhouette is within normal limits. There are no pleural effusions. There is no pneumothorax suspected. IMPRESSION: 1: NO ACUTE CARDIOPULMONARY DISEASE. Reviewed, dictated and finalized at location B. [employer]
--- OUTSIDE RECORDS SUMMARY | 2024-09-15 11:40 | XMS_ITS | Continuity of Care Document ---
Author Organization [facility] Address [address] [place] [address] [address] [place] [address] Phone Care Team Providers Care Screen Tacker Name Role Phone [facility] Unavailable Unavail able Eliazar De La Torre Unavailable Unavailable Advance Directives Directive Yes / No Effective Date File Name No Information Encounters Encounter Description Practice Location Reason(s) For Visit Diagnoses Date Provider Providers Copied on Encounter [facility], [id number] [place] [address] [address], [place], [place], [id number], [place] tel:[phone] [facility] No Information [facility] [address], [address], [place], [place], [id number] , [place]. [phone] Referring Provider: Channing Galindo, [address] [place] [address] [address], [place], [address]. tel:[phone] sulting Provider: Eliazar De La Torre, [address] [place] [address], [place], [address]. tel:[phone] Family History Family Member Type Diagnosis Age At Onset No Information Payers Payer name Insurance type Covered republican ID Authoriza tion(s) No Information Social History Type Description Quantity Date Captured Comments Sex Female Smoking Status No Information Chief Complaint And Reason For Visit No Information Reason For Referral Reason For Referral No Information History Of Present Illness Encounter Date Complaint History Of Prese nt Illness No Information Functional Status Date Functional Assessmen t No Information Instructions Date Instruction Additional Infor mation No Information Assessments Type Assessment Date No Information Patient Care Teams Name Effective Dates (start - stop) Status Members No Information
--- OUTSIDE RECORDS SUMMARY | 2024-09-15 11:40 | XMS_ITS | Data Portability ---
Author Organization [facility] Address [address] [place] [address] [place] [address] Care Team Providers Care Rn Liaison Name Role Phone DIGNA CHANG Primary Care Provider Assessment Encounter Date Assessment Date Assessment LastModified by Organization Details LastModified Time 09/02/2020 09/02/2020 Annual gynecological exam performed. Patient will come back in a year unless there are new symptoms. Not available 09/02/2020 12:32:44 Plan of Treatment Reminders Order Date Submit Date Provider Last Modified By Organization Details Last Modified Time Details Appointments None recorded. Lab urinalysis , dipstick 2020 021 [email or web address] [place], [address], [place], [address], 14:21:24 Referral None recorded. Procedures None recorded. Surgeries None recorded. Imaging None recorded. Medication Orders nystatin-t riamcinolo ne 100,000 unit/gram- 0.1 % topical ointment 2020 021 [facility] [address] [facility], [place], [address], 14:37:58 Patient TargetsNo targets recorded. Patient Instructions Encounter Date Encounter Id Patient Instructions Last Modified By Organization Details Last Modified Time 09/02/2020 [id number] [email or web address] Not available 12:56:09 Reason for Referral None Reported. Results Created Date Observation Date Name Description Value Unit Range Abnormal Flag Note LastModifiedBy Organization Detail LastModifiedTime 06/13/20 21 06/13/2021 CULTU RE: URINE result report SEE RESULT S BELOW Test: Cultu re: Urine Speci men Sourc e: Urine Voide d Speci men Type: Urine Speci men Date: 06/13 3:36 PM Resul t Date: 06/14 10:06 PM Resul t Statu s: Final resul t Abnor mal: No Resul ting Lab: [facility] [address] [facility] [address] Tel: CULTU RE ----- ----- ----- --- No growt h in 1 day (dete ction level of 10,00 0 colon ies / ml.) Not Available [facility] (Lab) [address] [facility], [place], [address], 06/19/2021 01:23:47 06/13/20 21 06/13/2021 VAGIN ITIS/ VAGIN OSIS, DNA PROBE isis sp. detection, direct probe Negati ve negati ve Not Available [facility] (Lab) [address] [place], [address], 06/19/2021 01:23:48 06/13/20 21 06/13/2021 VAGIN ITIS/ VAGIN OSIS, DNA PROBE gardnerella vag. detection, direct probe Negati ve negati ve Not Available [facility] (Lab) [address] [place], [address], 06/19/2021 01:23:48 06/13/20 21 06/13/2021 VAGIN ITIS/ VAGIN OSIS, DNA PROBE trichomonas vag. detection, direct probe Negati ve negati ve Not Available [facility] (Lab) [address] [place], [address], 06/19/2021 01:23:48 06/13/20 21 06/13/2021 CULTU RE: HERPE S SIMPL EX VIRUS (HSV) , REFLE X TYPIN G source SWAB Not Available [facility] (Lab) [address], [place], [address], 06/19/2021 01:23:49 06/13/20 21 06/13/2021 CULTU RE: HERPE S SIMPL EX VIRUS (HSV) , REFLE X TYPIN G hsv culture, body fluid NOT ISOLAT ED REFER ENCE RANGE : NOT ISOLA LOYDA Perfo rming Organ izati on Infor matio n: Site ID: [id number] Name: [facility] Addre ss: [id number] [place] [address] Direc tor: Sindy schroeder MD Not Available [facility] (Lab) [address] [facility], [place], [address], 06/19/2021 01:23:49 06/13/20 21 06/13/2021 urina lysis , dipst ick Leukocytes trace Not Available Julianna lopez [address], [place], [address], 06/13/2021 14:20:14 06/13/20 21 06/13/2021 urina lysis , dipst ick Nitrite neg Not Available [place] [address], [place], [address], 06/13/2021 14:20:14 06/13/20 21 06/13/2021 urina lysis , dipst ick Urobilinogen neg Not Available Maryann shepard [address], [place], [address], 06/13/2021 14:20:14 06/13/20 21 06/13/2021 urina lysis , dipst ick Protein neg Not Available [place] [address], [place], [address], 06/13/2021 14:20:14 06/13/20 21 06/13/2021 urina lysis , dipst ick pH 6 Not Available [place] [address], [place], [address], 06/13/2021 14:20:14 06/13/20 21 06/13/2021 urina lysis , dipst ick Specific [place] 1.020 [facility] Available [facility] [address], [place], [address], 06/13/2021 14:20:14 06/13/20 21 06/13/2021 urina lysis , dipst ick Ketone neg Not Available [place] [address], [place], [address], 06/13/2021 14:20:14 06/13/20 21 06/13/2021 urina lysis , dipst ick Bilirubin neg Not Available [facility] chanell [address], [place], [address], 06/13/2021 14:20:14 06/13/2006/13/2021 urina lysis , dipst ick Glucose neg Not Available [place] [address], [place], [address], 06/13/2021 14:20:14 06/13/20 21 06/13/2021 urina lysis , dipst ick Appearance clear [facility] Available [facility] [address], [place], [address], 06/13/2021 14:20:14 06/13/2006/13/2021 urina lysis , dipst ick Color dark yellow Not Available [place] [address], [place], [address], 06/13/2021 14:20:14 06/19/20 21 06/18/2021 MAMMO , scree chirstopher, bilat eral No observ ation record ed. [facility] [address], [place], [address], 06/20/2021 13:08:16 Result Notes Documentation Provider Name and Address Organization Details Recorded Time Culture, Urine : 06-19-21: pt informed. la,rma L Fartnu lopez, [facility] 06/24/2021 11:31:58 Problems Name Problem SNOMED Code Status Onset Date Resolution Date Notes Provider Name and Address Organization Details Recorded Time Blood leukocyt e number above referenc e range [id number] Completed 201609/02/2020 Elevated white blood cell count, unspecif ied;Vinny rded Elsewher e: No Locat ion: [facility] S ource: EHR Senior Education Specialist madhuri: N Dorothea ce ID: 0001 Taurus lable Time: 11:00:00 AM Rosible Negro [facility] 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 12:35:26 Screenin g for malignan t neoplasm of rectum Completed 201509/02/2020 Encounte r for screenin g for malignan t neoplasm of rectum;R ecorded Elsewher e: No Locat ion: [facility] S ource: EHR Senior Education Specialist madhuri: N Frankiti ce ID: 0001 Taurus lable Time: 11:00:00 AM Rosibel Negro [facility] 12:35:22 Evaluati on finding Completed 201609/02/2020 Hematuri a, unspecif ied;Vinny rded Elsewher e: No Locat ion: [facility] S ource: EHR Senior Education Specialist madhuri: N Frankiti ce ID: 0001 Taurus lable Time: 11:57:00 AM Rosibel Negro jessica, [facility] 12:34:58 Speciali zed medical examinat ion Completed 201409/02/2020 Gynecolo gical Examinat ion;Vinny rded Elsewher e: No Locat ion: [facility] S ource: [facility] madhuri: N Frankiti ce ID: 0001 Taurus lable Time: 11:00:00 AM Rosibel Negro [facility], [facility] [address] 12:35:[address] Concept Completed 201709/02/2020 Encntr for general adult medical exam w/o abnormal findings ;Recorde d Elsewher e: No Locat ion: [facility] S ource: [facility] madhuri: N Frankiti ce ID: 0001 Taurus lable Time: 11:30:00 AM Rosibel Sruthi [facility], [facility] 12:35:24 Radiolog ic finding [id number] Completed 201709/02/2020 Oth abn and inconclu sive findings on dx imaging of breast;R ecorded Elsewher e: No Locat ion: [facility] S ource: [facility] madhuri: N Frankiti ce ID: 0001 Taurus lable Time: 10:47:27 AM Rosibel Negro jessica, [facility] 12:34:55 Female genital organ symptoms [id number] Completed 201109/02/2020 Unspecif ied symptom associat ed with female genital organs;R ecorded Elsewher e: No Locat ion: [facility] S ource: [facility] madhuri: N Frankiti ce ID: 0001 Taurus lable Time: 01:45:00 PM Rosibel Negro jessica, [facility] 1 12:35:01 Screenin g for malignan t neoplasm of cervix Completed 201109/02/2020 Screenin g for malignan t neoplasm s of the cervix;R ecorded Elsewher e: No Locat ion: [facility] chan[facility] S ource: EHR Senior Education Specialist madhuri: N Frankiti ce ID: 0001 Taurus lable Time: 01:00:00 PM Rosibel lopez [facility] 1 12:35:20 Microsco pic hematuri a [id number] Completed 201309/02/2020 MICROSCO PIC HEMATURI A;Record ed Elsewher e: No Locat ion: [facility] S ource: EHR Senior Education Specialist madhuri: N Practi ce ID: 0001 Taurus lable Time: 11:00:00 AM Rosibel lopez [facility] 1 12:35:14 Adult health examinat ion Completed 201409/02/2020 ROUTINE MEDICAL EXAM;Rec orded Elsewher e: No [facility]at ion[facility] S ource: EHR Senior Education Specialist madhuri: N Frankiti ce ID: 0001 Taurus lable Time: 04:56:27 PM Rosibel lopez [facility] 1 12:34:49 Bone density finding [id number] Active 2017 Ot disrd of bone density and structur e, unspecif ied site;Rec orded Elsewher e: No [facility]: EHR Senior Education Specialist madhuri: N Franikti ce ID: 0001 Taurus lable Time: 10:47:27 AM Not Available [facility] 0 14:26:26 Obesity [id number] Completed 201409/02/2020 Obesity; Recorded Elsewher e: No Locat ion: [facility] S ource: EHR Senior Education Specialist madhuri: N Practi ce ID: 0001 Taurus lable Time: 11:00:00 AM Rosibel lopez [facility] 1 12:35:15 Vaginiti s and vulvovag initis Completed 201009/02/2020 Vaginiti s;Record ed Elsewher e: No Locat ion: [facility] S ource: EHR Senior Education Specialist madhuri: N Practi ce ID: 0001 Taurus lable Time: 02:45:00 PM Rosibel Negro jessica [facility] 12:35:32 Leukopen ia [id number] Completed 201109/02/2020 LEUKOCYT OPENIA NOS;Prac velasquez ID: 0001 Rosibel Negro [facility] 12:35:12 Atrophic vaginiti s [id number] Completed 201509/02/2020 Senile vaginiti s;Record ed Elsewher e: No Locat ion: [facility] S ource: EHR Senior Education Specialist madhuri: N Practi ce ID: 0001 Taurus lable Time: 11:00:00 AM Rosibel Negro [facility] 12:34:51 Urinary tract infectio us disease [id number] Completed 201109/02/2020 Urinary Tract Infectio n;Record ed Elsewher e: No Locat ion: [facility] S ource: EHR Senior Education Specialist madhuri: N Practi ce ID: 0001 Taurus lable Time: 01:45:00 PM Rosibel Negro jessica [facility] 12:35:30 Increase d frequenc y of urinatio n [id number] Completed 201509/02/2020 Frequenc y of micturit ion;Prac velasquez ID: 0001 Rosibel Negro [facility] 12:35:[address] Concept Completed 201609/02/2020 Encounte r for general adult medical exam w abnormal findings ;Practic e ID: 0001 Rosibel Negro [facility] 12:35:18 Problem Notes None recorded. Procedures Surgical History Date Name Laterality Status Provider Name and Address Organization Details Recorded Time 09/02/19 21 Date of Last Pap Smear completed [facility] 09/02/2020 12:35:42 06/20/20 20 Date of Last Mammogram completed [facility] 09/02/2020 12:40:55 03/17/20 17 Flexible Sigmoidoscopy completed [facility] 09/09/2020 22:01:38 11/29/19 15 total replacement of right knee joint completed [facility] 09/09/2020 22:02:45 08/02/19 15 fluoroscopic arthrography of left knee completed [facility] 09/09/2020 22:03:58 08/02/19 15 total knee replacement completed [facility] 09/09/2020 22:04:52 08/02/19 11 fluoroscopic arthrography of right knee completed [facility] 09/09/2020 22:04:11 06/22/20 07 cholecystectomy completed [facility] 09/09/2020 22:00:11 08/02/19 01 fluoroscopic arthrography of left knee completed [facility] 09/09/2020 22:03:30 08/02/18 99 fluoroscopic arthrography of right knee completed [facility] 09/09/2020 22:03:12 08/02/18 89 ligation of bilateral fallopian tubes completed [facility] 09/09/2020 21:59:50 05/09/19 84 section completed [facility] 09/09/2020 21:58:59 08/02/18 81 Dilation and Curettage completed Rosibel Negro [facility] 09/09/2020 22:38:34 08/02/18 80 Dilation and Curettage completed Rosibelmirlande Negro [facility] 09/09/2020 22:38:29 08/02/18 78 Dilation and Curettage completed [facility] 09/09/2020 22:38:25 08/02/18 64 procedure on kidney completed [facility] 09/09/2020 22:01:04 Imaging Results Imaging Date Name Status LastModified by Organiz ation Details LastModified Time 06/18/2021 MAMMO, screening, bilateral completed [facility] [address] [facility], [place], [address], 06/20/2021 13:08:16 Procedure Notes None recorded. Medical Equipment None Reported. Allergies Allergen ID Allergen Name Allergen Category Reaction Reaction Severity Criticality Documentation Date Start Date Code Code System Note Provider Name and Address Organization Details Recorded Time 19640 theophyll ine medicatio n Not available Not available Not available 07/19/2020 81243 RxNorm Comme nt: [facility]; Not Available [facility] 0 14:15:01 35953 amoxicill in medicatio n Not available Not available Not available 07/19/2020 723 RxNorm Comme nt: [facility]at [facility]; Not Available [facility] 0 14:15:01 14753 clioquino l medicatio n Not available Not available Not available 07/19/2020 5942 RxNorm Comme nt: [facility] Cau sativ e Agent : Viofo rm; Not Available [facility] 0 14:15:01 47384 povidone- iodine medicatio n Not available Not available Not available 07/19/2020 8611 RxNorm Comme nt: [facility] Cau sativ e Agent : Betad ine; Not Available [facility] 0 14:15:01 82457 soap medicatio n Not available Not available Not available 07/19/2020 37737 UNK Comme nt: Locat ion: Maryann elkins Cau sativ e Agent : Betad ine; Not Available [facility] 0 14:15:01 49550 cimetidin e medicatio n Not available Not available Not available 07/19/2020 2541 RxNorm Comme nt: Locat ion: Maryann elkins Cau sativ e Agent : Tagam et; Not Available [facility] 0 14:15:01 54123 Betadine medicatio n rash Not available Not available 09/09/2020 67568 0 RxNorm Rosibel lopez, [facility] 1 22:10:18 73946 Dilaudid medicatio n Not available Not available Not available 09/09/2020 45258 3 RxNorm Rosibel lopez, [facility] 1 22:11:11 12888 lisinopri l medicatio n Not available Not available Not available 09/09/2020 38530 RxNorm Rosibel lopez, [facility] 1 22:11:22 Medications Name Sig Start Date Stop Date Status Note LastModified by Organization Details LastModified Time cyclobenz aprine 10 mg tablet TAKE 1 TABLET BY MOUTH AT BEDTIME NEEDED FOR MUSCLE SPASMS active Not Available Not Available No t Available vitamin E 670 mg (1,000 unit) capsule 02/09 completed Prescrib ed Elsewher e: Yes Loca tion: [facility] M odify By: marta lorenzana DateTime : 05/20/20 11 02:45:00 PM Not Available Not Available Not Available doxycycli ne hyclate 100 mg capsule TAKE 1 CAPSULE BY MOUTH TWICE A DAY FOR 5 DAYS 09/02 completed Not Available Not Available Not Available Celexa 10 mg tablet take 1 tablet by oral route every day 09/02 completed Prescrib ed Elsewher e: Yes Loca tion: [facility] odify By: amcal Lua ncounter DateTime : 09/02/19 16 09:45:00 AM Not Available Not Available Not Available Grape Seed 25 mg capsule active Prescrib ed Elsewher e: Yes Loca tion: [facility] odify By: bhavna lyons DateTime : 01/28/20 12 01:00:00 PM Not Available Not Available Not Available azithromy carlin 250 mg tablet take 2 tablet (500MG) by oral route every day for 1 day then 1 tablet (250 mg) by oral route once daily for 4 days 10/03 completed Prescrib ed Elsewher e: No Locat ion: [facility] odify By: gmedical Encount er DateTime : 09/25/19 14 10:34:38 AM Not Available Not Available Not Available fluconazo le 150 mg tablet TAKE 1 TABLET(S ) BY ORAL ROUTE FOR 1 DAY. 09/02 completed Not Available Not Available Not Available prednison e 20 mg tablet TAKE 3 TABLETS BY MOUTH EVERY DAY FOR 4 DAYS, THEN 2 TABS DAILY X 3DAYS, THEN 1 TAB DAILY X3 DAYS 09/02 completed Not Available Not Available Not Available Diovan 80 mg tablet take 1 tablet (80MG) by oral route every day 2010 active Prescrib ed Elsewher e: No Locat ion: [facility] odify By: jake Ro unter DateTime : 05/20/20 11 02:45:00 PM Not Available Not Available Not Available aspirin 81 mg tablet,de layed release active Not Available Not Available Not Available Faby-C 500 mg-50 mg tablet 01/27 completed Prescrib ed Elsewher e: Yes Loca tion: [facility] odify By: bhavna lyons DateTime : 05/20/20 11 02:45:00 PM Not Available Not Available Not Available triamcino lone acetonide 0.1 % topical cream APPLY SMALL AMOUNT TO AFFECTED AREA EVERY 6 8 HOURS 09/02 completed Not Available Not Available Not Available amoxicill in 500 mg tablet take 1 tablet by oral route 3 times every day 09/02 completed Prescrib ed Elsewher e: No Locat ion: [facility] odify By: jes Clement nter DateTime : 04/26/20 19 11:30:00 AM Not Available Not Available Not Available nystatin- triamcino lone 100,000 unit/gram -0.1 % topical ointment APPLY TO THE AFFECTED AREA(S) BY TOPICAL ROUTE 2 TIMES PER DAY x 5 days active Not Available Not Available No t Available FiberCon 625 mg tablet active Prescrib ed Elsewher e: Yes Loca tion: [facility] odify By: jake Ro unter DateTime : 05/20/20 11 02:45:00 PM Not Available Not Available Not Available oxycodone -acetamin ophen 5 mg-325 mg tablet active Not Available Not Available Not Available Protonix 40 mg intraveno us solution infuse by intraven ous route every day 02/27 completed Prescrib ed Elsewher e: Yes Loca tion: [facility] odify By: bhavna lyons DateTime : 01/28/20 12 01:00:00 PM Not Available Not Available Not Available Flagyl 500 mg tablet take 1 tablet by oral route 3 times every day 09/02 completed Prescrib ed Elsewher e: No Locat ion: [facility] odify By: roel lorenzana DateTime : 02/25/20 14 09:03:36 PM Not Available Not Available Not Available valsartan 320 mg tablet active Not Available Not Available Not Available magnesium 100 mg capsule 02/09 completed Prescrib ed Elsewher e: Yes Loca tion: [place] [facility] odify By: marta tamayounthannah DateTime : 01/28/20 12 01:00:00 PM Not Available Not Available Not Available raloxifen e 60 mg tablet TAKE 1 TABLET BY MOUTH ONCE DAILY FOR 90 DAYS active Not Available Not Available No t Available Levaquin 500 mg tablet take 1 tablet by oral route every 24 hours 09/02 completed Prescrib ed Elsewher e: No Locat ion: [facility] odify By: amcal lorenzana DateTime : 02/25/20 14 09:03:36 PM Not Available Not Available Not Available methylpre dnisolone 4 mg tablets in a dose pack TAKE 6 TABLETS ON DAY 1 DIRECTED ON PACKAGE AND DECREASE BY 1 TAB EACH DAY FOR A TOTAL OF 6 DAYS active Not Available Not Available No t Available albuterol sulfate HFA 90 mcg/actua tion aerosol inhaler inhale 2 puff by inhalati on route 4 - 6 hours as needed active Prescrib ed Elsewher e: Yes Loca tion: [facility] odify By: jake Ro unter DateTime : 05/20/20 11 02:45:00 PM Not Available Not Available Not Available Terazol 7 0.4 % vaginal cream insert 1 applicat orful by vaginal route every day for 7 days at bedtime 03/29 completed Prescrib ed Elsewher e: No Locat ion: [facility] chanell [facility] odify By: nataly lorenzana DateTime : 03/23/20 17 10:54:23 AM Not Available Not Available Not Available valsartan 160 mg tablet TAKE 1 TABLET BY MOUTH ONCE DAILY active Not Available Not Available No t Available Calcium Citrate + D 315 mg-5 mcg (200 unit) tablet 02/27 completed Prescrib ed Elsewher e: Yes Loca tion: [facility] odify By: bhavna lyons DateTime : 05/20/20 11 02:45:00 PM Not Available Not Available Not Available Bactrim DS 800 mg-160 mg tablet take 1 tablet by oral route every 12 hours 10/04 completed Prescrib ed Elsewher e: No Locat ion: [facility] odify By: nataly lorenzana DateTime : 04/09/20 16 09:33:19 AM Not Available Not Available Not Available Vitamin C 500 mg capsule,e xtended release 02/09 completed Prescrib ed Elsewher e: Yes Loca tion: [facility] odify By: marta lorenzana DateTime : 01/28/20 12 01:00:00 PM Not Available Not Available Not Available Vitamins and Minerals tablet active Prescrib ed Elsewher e: Yes Loca tion: [facility] odify By: bhavna lyons DateTime : 01/28/20 12 01:00:00 PM Not Available Not Available Not Available Zn-Plus-P rotein 15 mg tablet 02/09 completed Prescrib ed Elsewher e: Yes Loca tion: [facility] odify By: marta lorenzana DateTime : 01/28/20 12 01:00:00 PM Not Available Not Available Not Available metformin 500 mg/5 mL oral solution take 10 millilit er by oral route 2 times every day with meals 09/02 completed Prescrib ed Elsewher e: Yes Loca tion: [facility] odify By: danette elkins DateTime : 04/26/20 19 11:30:00 AM Not Available Not Available Not Available nitrofura ntoin monohydra te/macroc rystals 100 mg capsule TAKE 1 CAPSULE BY MOUTH EVERY 12 HOURS FOR 7 DAYS 09/02 completed Not Available Not Available Not Available Fish Oil 09/02 completed Not Available Not Available Not Available albuterol sulfate prn 09/02 completed Not Available Not Available Not Available Diovan 09/02 completed Not Available Not Available Not Available Celexa 09/02 completed Not Available Not Available Not Available Vitamin D3 09/02 completed Not Available Not Available Not Available multivita min active Not Available Not Available Not Available Vitamin D3 10 mcg (400 unit) capsule active Prescrib ed Elsewher e: Yes Loca tion: [facility] odify By: jake osorio Enco unter DateTime : 05/20/20 11 02:45:00 PM Not Available Not Available Not Available Fish Oil 360 mg-1,200 mg capsule active Prescrib ed Elsewher e: Yes Loca tion: [facility] odify By: jake daltoni Enco unter DateTime : 05/20/20 11 02:45:00 PM Not Available Not Available Not Available Prevnar 13 (PF) 0.5 mL intramusc ular syringe PHARMACY ADMINIST ERED active Not Available Not Available No t Available Tirosint 25 mcg capsule take 1 capsule (25MCG) by oral route every day 02/09 completed Prescrib ed Elsewher e: No Locat ion: [facility] odify By: marta lorenzana DateTime : 05/20/20 11 02:45:00 PM Not Available Not Available Not Available olive leaf extract 250 mg capsule active Prescrib ed Elsewher e: Yes Loca tion: Velma lua [facility] odify By: bhavna lyons DateTime : 02/28/20 14 11:00:00 AM Not Available Not Available Not Available olive leaf extract active Not Available Not Available Not Available [employer] 1.5 billion cell capsule 02/27 completed Prescrib ed Elsewher e: Yes Loca tion: Vemla lua [facility] odify By: bhavna lyons DateTime : 01/28/20 12 01:00:00 PM Not Available Not Available Not Available OneTouch Verio test strips active Not Available Not Available Not Available Multi Vitamin 9 mg iron/15 mL oral liquid active Prescrib ed Elsewher e: Yes Loca tion: Lizz[facility]Count includes the [facility] odify By: marta lorenzana DateTime : 02/10/20 13 11:30:00 AM Not Available Not Available Not Available Fluzone High-Dose Quad 2020-21 (PF) 240 mcg/0.7 mL IM syringe PHARMACY ADMINIST ERED active Not Available Not Available No t Available Vitals Date Recorded Body height Provider Name an d Address Organization Details Last Updated DateTime 06/13/2021 162.56 cm Yudith Mauro [facility] 06/13/2021 14:19:43 Date Recorded Systolic blood pressure Diastolic blood pressure Provider Name and Address Organization Details Last Updated DateTime 06/13/2021 138 mm[Hg] 82 mm[Hg] Elena Brown, [facility]- [address], [place], [address], [facility] 06/14/2021 07:55:35 Date Recorded Body height Body mass index (BMI) Body weight Systolic blood pressure Diastolic blood pressure Provider Name and Address Organization Details Last Updated DateTime 09/02/2020 162.56 cm 34.8 kg/m2 06406.25 g 157 mm[Hg] 87 mm[Hg] Rosibel Negro [facility] 12:33:34 Social History Question Answer Notes LastModified by Organizat ion Details LastModified Time Tobacco Smoking Status Never Smoker Rosibel Negro [facility], [facility] 09/09/2020 21:58:28 What Is Your Level Of Alcohol Consumption? Occasional [email or web address] Information not available 09/09/2020 What Is Your Level Of Caffeine Consumption? Occasional [email or web address] Information not available 09/09/2020 Have You Ever Been Counseled For Unhealthy Alcohol Use? No [email or web address] Information not available 09/09/2020 Do You Use Any Illicit Or Recreational Drugs? No [email or web address] Information not available 09/09/2020 Has Tobacco Cessation Counseling Been Provided? No [email or web address] Information not available 09/09/2020 Do You Or Have You Ever Used Any Other Forms Of Tobacco Or Nicotine? No [email or web address] Information not available 09/09/2020 Sex: Female Functional Status Question Answer Note LastModified by Organizat ion Details LastModified Time What is your exercise level? Occasional [email or web address] Information not available 09/09/2020 Mental Status None recorded. Family History Relationship Description Onset Age of this Age Resolved Age Notes LastModified by Organization Details LastModified Time Father Diabetes mellitus [email or web address] Not available 09/09 21:54:32 Maternal Grandmother Malignant tumor of pancreas Not available 09/09 21:55:12 Mother Malignant tumor of colon [email or web address] Not available 09/09 21:55:28 Mother Asthma [email or web address] Not available 09/09/2020 21:55:43 Mother Hypertensive disorder [email or web address] Not available 09/09 21:55:53 Mother Malignant tumor of lung [email or web address] Not available 09/09 22:05:34 Paternal Aunt Lupus erythematosu s [email or web address] Not available 09/09 21:56:20 Paternal Grandfather Cerebrovascu lar accident [email or web address] Not available 21:56:43 Notes:Father: Diabetes demond shanks Maternal grandmother: Cancer, pancreatic Mother: Cancer, colon, Asthma, Hypertension Paternal aunt: Lupus erythematosus Paternal grandfather: Stroke Medical History Condition Response Allergies (Food, seasonal, environmental ) Y Other N Breast Cancer N Drug/Latex Allergies/Reactions N Blood Transfusion N Dermatologic Disorders N Lung Disease N Defects or Inherited Disease N Breast Problem N Gestational Diabetes N Hematologic disorders N Anesthesia Complications N History of STI N Deep Vein Thrombosis N Polycystic ovary syndrome N Anxiety Disorder N Autoimmune disease N Arthritis Y Infertility N Polyps N Acid Reflux (GERD) N History of abnormal pap Y Cancer N Stroke N Varicosities N Neurologic/Epilepsy N Endometriosis N High Cholesterol N Headaches N Fibromyalgia N Kidney Disease N Heart Problems N Kidney or Bladder Problems Y Thyroid Problems Y GI Problems N Eating Disorder N Anemia N Art (IVF or FET) N Psychiatric Illness N Ovarian Cancer N Diabetes Y Pulmonary (TB, Asthma) N Hepatitis/Liver Disease N Eczema N Urinary Tract Infection N Abuse/Domestic Violence N Asthma Y Trauma/Violence N Depression/ depression N Heart Disease N Pre-Eclampsia N Hypertension Y Osteoporosis Y Thrombophilias N Gynecological History Statement/Question Response If Post Menopausal, Age at Menopause 49 Abnormal Pap Y Date of Last Mammogram 06/20/2020 Date of LMP 08/02/2003 Date of Last Pap Smear 09/02/2020 Current Control Method Tubal Ligat ion LMP Approximate Obstetrics History GPAL:G 3 P 3 0 0 3 Type Value Full Term 3 Living 3 Total 3 Past Encounters Encounter ID Performer Location Encounter Start Date Encounter Closed Date Diagnosis/Indication Diagnosis SNOMED-CT Code Diagnosis ICD10 Code Diagnosis Note [id number] [facility] [address] [address] 09/02/2020 11:55:56 09/02/2020 19:14:54 Gynecologic examination 92003703 Z01.419 Take Calcium with Vitamin D 12-1500mg daily. Do monthly self breast exams. It is advised to get annual flu shot in the fall and [facility]. If you haven't received the Tdap vaccine in the last 10 years you should obtain one as well. Have mammogram yearly, bone density every 2-3 years and colonoscop y every 5-10 years depending on findings and history. Engage in daily exercise of low impact aerobic exercise 45-60 minutes 4-5 times weekly. Avoid tobacco and illicit drugs as well as using moderation with alcohol intake less than 1-2 8 oz beverages daily. This lifestyle behavior pattern will lead to less health conditions and longer life span. If BMI greater than 25 weight watchers or dietary consult advised. Questions have been answered. Patient appears to understand instructio ns, but if you have any further questions call or respond to this email USPSTF recommends against screening for cervical cancer in women older than 65yo who have had adequate prior screening & are not otherwise at high risk for cervical cancer. Dexa due next year (currently on Evista--wi ll reasess after next bone scan) Mammo done Colon due but managed by specialist /PCP due to hx of GI issues. See's Endocrinol ogist for goiter regularly UTD on adult wellness labs per pt Not SA--widowe d Additional precaution hesham measures were taken to minimize potential exposure to the Covid-19 virus during this patient s visit, including available hand cotton tier upon arrive, tempercarlin e check and being asked a series of screening questions. All staff wore face coverings during this encounter, as well as provided additional cleaning and sanitizing of all surfaces, including countertop s, pens, chairs, door handles, light switches, etc, prior to and following the patient s visit. [id number] [facility] [address] [address] 06/13/2021 13:55:37 06/14/2021 10:38:50 Urinary symptoms [id number] R39.9 No urinary sx's. Vaginal irritation 70079 6004 N89.8 Use ointment prescribed along with VCG's for comfort care.Don't wear a pad at night at the very least.Sent HSV swab as precaution .There were a couple areas that looked suspect HSV but the irritation seems to blend together.W ill await results for further decisions of treatment. Time spent in visit is a total of 15 mins with at least 50% of visit consisting of counseling and review of plan of care.Addit ional precaution hesham measures were taken to minimize potential exposure to the Covid-19 virus during this patient s visit, including available hand cotton tier upon arrive, temperatur e check and being asked a series of screening questions. All staff wore face coverings during this encounter, as well as provided additional cleaning and sanitizing of all surfaces, including countertop s, pens, chairs, door handles, light switches, etc, prior to and following the patient s visit. Health Concerns Section Related Observation LastModified by Organization Detai ls LastModified Time None Recorded Concern Status LastModified by Organization Details LastModified Time None Recorded Advance Directives Directive None Recorded Payers Encounter Date Sequence Insurance Name Policy Number Policy Kraus Covered Member ID Kraus Member ID Guarantor Name 09/02/2020 1 [place] Erin Cameron [id number] Erin Oliverberthy 09/02/2020 2 [employer] (MEDICARE SUPPLEMENT) Erin Reyes Penberthy [id number] Erin Reyes Penberthy 06/13/2021 1 [place] Erin Oliverberthy [id number] Erin Reyes Penberthy 06/13/2021 2 [employer] (MEDICARE SUPPLEMENT) Erin Reyes Penberthy [id number] Erin Cameron Notes Date Note Type Note Provider Name and Address Organization Details Recorded Time 09/02/2020 text/html Annual GYNReport ed bypatient.History: no gynecologic complaints Menstrual cycle:Postmenopaus e Urinary symptoms:No hematuria; No incontinence Vulva:No genital lesion Vagina:Normal vaginal discharge Breast:No breast pain; No breast lump; No nipple discharge Current Contraception:Not sexually active Sexual complaints:No sexual complaints; No pain during intercourse; Normal libido Menopausal Symptoms:No menopausal symptoms; Normal vaginal lubrication Psychological symptoms:No depression; No anxiety; No PMDD Preventive measures:Encourage self breast examination; Encourage regular exercise; Encourage no tobacco use; Encourage regular mammograms starting age 40; Mammogram performed within the past year; Up to date on colonoscopy screening WHITNEY Sawant- [address], [place], [address], [place] [facility] 09/02/2020 12:56:31 06/13/2021 text/html Here today for urine sample collection possible UTI.Sx's include vaginal itching & irritation.Neg urgency, frequency or dysuria of urination.Not SA for yearsNeg pelvic/abd/flank pain.Wears pads daily for RIVER/UUI stated as being manageable.Neg new laundry detergents or scented hygeine products.Unable to recall any other possible contact irritants. Elena Brown, [facility]- [address], [place], [address], [facility] 06/14/2021 08:09:58 OBGyn Episode Ob Episode Information Episode Created Date Number of Fetuses Patient Bloodtype Patient rh Status Prepregnancy Weight lbs Domestic Partner Domestic Partner Phone Father Name Cfo Status 09/09/19 21 1 CLOSED Fetus Data First Name Last Name Admitted to NICU Weight (g) Sex Living Outcome Pediatric Complications Fetus ID Race Codes Race Delivery Type 3316.66 [id number] F Full Term [id number] Vaginal Delivery Byron Calculation Initial Byron Date Initial Exam Date Initial Exam Provider Initial Ultrasound Date Last Menstrual Period Date Ultra Sound Weeks Gestation 0 Eighteen To Twenty Week Byron Update Ultra Sound Date Fundal Height At Umbil Quickening Date Ultra Sound Latest Weeks Gestation Final Byron Confirmed By Final Byron Confirmed Date Final Byron Date Ultra Sound Latest Days Gestation 0 0 Menstrual History Last Menstrual Date Menses Monthly On Bcp Conception Prior Menses Frequency Hcg Plus Date Menarche Onset Age Delivery Information Delivery Date Delivery Type Labor Anesthesia Weeks Gestation Incision Type Labor Labor Length Hrs Delivered By Post Complications Tubal Sterilization Discharge Date Comments 7 40 Discharge Information Feeding Method Contraceptive Method Maternal HG B and HCT Levels Ob Episode Information Episode Created Date Number of Fetuses Patient Bloodtype Patient rh Status Prepregnancy Weight lbs Domestic Partner Domestic Partner Phone Father Name Cfo Status 09/09/19 21 1 CLOSED Fetus Data First Name Last Name Admitted to NICU Weight (g) Sex Living Outcome Pediatric Complications Fetus ID Race Codes Race Delivery Type 3005.04 7 F Full Term [id number] Primary Byron Calculation Initial Byron Date Initial Exam Date Initial Exam Provider Initial Ultrasound Date Last Menstrual Period Date Ultra Sound Weeks Gestation 0 Eighteen To Twenty Week Byron Update Ultra Sound Date Fundal Height At Umbil Quickening Date Ultra Sound Latest Weeks Gestation Final Byron Confirmed By Final Byron Confirmed Date Final Byron Date Ultra Sound Latest Days Gestation 0 0 Menstrual History Last Menstrual Date Menses Monthly On Bcp Conception Prior Menses Frequency Hcg Plus Date Menarche Onset Age Delivery Information Delivery Date Delivery Type Labor Anesthesia Weeks Gestation Incision Type Labor Labor Length Hrs Delivered By Post Complications Tubal Sterilization Discharge Date Comments 4 Discharge Information Feeding Method Contraceptive Method Maternal HG B and HCT Levels Ob Episode Information Episode Created Date Number of Fetuses Patient Bloodtype Patient rh Status Prepregnancy Weight lbs Domestic Partner Domestic Partner Phone Father Name Cfo Status 09/09/19 21 1 CLOSED Fetus Data First Name Last Name Admitted to NICU Weight (g) Sex Living Outcome Pediatric Complications Fetus ID Race Codes Race Delivery Type 2976.47 0704 M Full Term [id number] Vaginal Delivery Byron Calculation Initial Byron Date Initial Exam Date Initial Exam Provider Initial Ultrasound Date Last Menstrual Period Date Ultra Sound Weeks Gestation 0 Eighteen To Twenty Week Byron Update Ultra Sound Date Fundal Height At Umbil Quickening Date Ultra Sound Latest Weeks Gestation Final Byron Confirmed By Final Byron Confirmed Date Final Byron Date Ultra Sound Latest Days Gestation 0 0 Menstrual History Last Menstrual Date Menses Monthly On Bcp Conception Prior Menses Frequency Hcg Plus Date Menarche Onset Age Delivery Information Delivery Date Delivery Type Labor Anesthesia Weeks Gestation Incision Type Labor Labor Length Hrs Delivered By Post Complications Tubal Sterilization Discharge Date Comments 0 40 Discharge Information Feeding Method Contraceptive Method Maternal HG B and HCT Levels
--- OUTSIDE RECORDS SUMMARY | 2024-09-15 11:40 | XMS_ITS | Clinical Summary ---
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 Name Role Phone Unavailable Primary Care Provider Unavailabl e Social History Tobacco Use Types Packs/Day Years Used Date Smoking Tobacco: Never Assessed Comments Unknown Sex and Gender Information Value Date Recorded Sex Assigned at Not on file Legal Sex Female 7:38 PM CDT Gender Identity Not on file Sexual Orientation Not on file Plan of Treatment Health Maintenance Due Date Last Done Comments Colorectal Cancer Screening Colonoscopy (10 Years) 1954 Hepatitis C 1972 DTaP, Tdap and Td Vaccines ( 1 - Tdap) 1973 Mammogram Screening 1994 Zoster Vaccines (1 of 2) 2004 Dexa Scan (General) 2019 Pneumococcal Vaccine: 65+ Ye ars (1 of 1 - PCV) 2019 COVID-19 Vaccine ( - 2023-2 5 season) 2024 Influenza Adult (#1) 2024 RSV Immunization or 60+ Years (1 - 1-dose 75+ series) 2029 Meningococcal B Vaccine Aged Out No l onger eligible based on patient's age to complete this topic Meningococcal Vaccine Aged Out No cordell lauri eligible based on patient's age to complete this topic RSV Immunizations Under 20 Months Aged Out No longer eligible based on patient's age to complete this topic
[2024-09-15 13:05] LABS: Influenza A QL RT-PCR Positive (Negative); Influenza B QL RT-PCR Negative (Negative); RSV RNA, RT-PCR Negative (Negative); SARS-CoV-2 RNA PCR Negative (Negative)
== END 2024-09-15 11:33 | disposition home or self-care (01) ==
PROVIDERS: PCP Family Medicine; Visit Provider Physician Assistant
DX: R05.9 Cough, unspecified (principal); J45.20 Mild intermittent asthma, uncomplicated; Z20.822 Contact with and (suspected) exposure to COVID-19
CPT/HCPCS: 71046; 87637

== ENCOUNTER 2024-11-23 09:43 | Outpatient (CLI) | payer MEDICARE, SELFPAY ==
--- NOTE | ~2024-11-23 | CT_ITS ---
CT Scan of the Chest without Contrast: Clinical Indication: Abnormal finding of lung field Technique: Contiguous sections were acquired throughout the chest without intravenous contrast. Dose reduction technique was used on this scan by utilizing automated exposure control and iterative recon struction technique. The dose-length product (DLP) was 126.87 mGy-cm. COMPARISON: 05/10/2024 Findings: Stable prominent/enlarged thyroid gland which is heterogeneous with possible nodules. There is no evidence of any significant mediastinal, hilar or axillary lymphadenopathy. Coronary eugene ry calcification are present. There is no evidence of pleural or pericardial effusion. The lungs are clear. No pulmonary nodules or infiltrates are noted. Images through the upper abdomen reveal hepatic cysts. Impression: No significant abnormalities seen. Previously noted pulmonary nodules are resolved. Reviewed, dictated and finalized at [facility]. Impression: No significant abnormalities seen. Previously noted pulmonary nodules are resol pablo.
--- OUTSIDE RECORDS SUMMARY | 2024-11-23 10:43 | XMS_ITS | Data Portability ---
Author Organization [facility] Address [address] [place] [address] Care Team Providers Care Geography Teacher Name Role Phone DIGNA CHANG Primary Care Provider Assessment Encounter Date Assessment Date Assessment LastModified by Organization Details LastModified Time 09/02/2020 09/02/2020 Annual gynecological exam performed. Patient will come back in a year unless there are new symptoms. [email or web address] Not available 09/02/2020 12:32:44 Plan of Treatment Reminders Order Date Submit Date Provider Last Modified By Organization Details Last Modified Time Details Appointments None recorded. Lab urinalysis , dipstick 2020 021 [email or web address] [facility], [address], [place], [address], 14:21:24 Referral None recorded. Procedures None recorded. Surgeries None recorded. Imaging None recorded. Medication Orders nystatin-t riamcinolo ne 100,000 unit/gram- 0.1 % topical ointment 2020 021 [facility] [address] [facility], [place], [address], 14:37:58 Patient TargetsNo targets recorded. Patient Instructions Encounter Date Encounter Id Patient Instructions Last Modified By Organization Details Last Modified Time 09/02/2020 [id number] [email or web address] Not available 12:56:09 Reason for Referral [...] Resul ting Lab: [facility] [address] [facility] [address] Tel: CULTU RE ----- ----- ----- --- No growt h in 1 day (dete ction level of 10,00 0 colon ies / ml.) Not Available [facility] (Lab) [address] [facility], [place], [address], 06/19/2021 01:23:47 06/13/20 21 06/13/2021 VAGIN ITIS/ VAGIN OSIS, DNA PROBE isis sp. detection, direct probe Negati ve negati ve Not Available [facility] (Lab) [address] [place], [address], 06/19/2021 01:23:48 06/13/20 21 06/13/2021 VAGIN ITIS/ VAGIN OSIS, DNA PROBE gardnerella vag. detection, direct probe Negati ve negati ve Not Available [facility] (Lab) [address] [place], [address], 06/19/2021 01:23:48 06/13/20 21 06/13/2021 VAGIN ITIS/ VAGIN OSIS, DNA PROBE trichomonas vag. detection, direct probe Negati ve negati ve Not Available [facility] (Lab) [address] [place], [address], 06/19/2021 01:23:48 06/13/20 21 06/13/2021 CULTU RE: HERPE S SIMPL EX VIRUS (HSV) , REFLE X TYPIN G source SWAB Not Available [facility] (Lab) [address], [place], [address], 06/19/2021 01:23:49 06/13/20 21 06/13/2021 CULTU RE: HERPE S SIMPL EX VIRUS (HSV) , REFLE X TYPIN G hsv culture, body fluid NOT ISOLAT ED REFER ENCE RANGE : NOT ISOLA LOYDA Perfo rming Organ izati on Infor matio n: Site ID: [id number] Name: [facility] Addre ss: [id number] [place] [facility] [place] [address] Direc tor: Sindy schroeder MD Not Available [facility] (Lab) [address] [facility], [place], [address], 06/19/2021 01:23:49 06/13/20 21 06/13/2021 urina lysis , dipst ick Leukocytes trace Not Available Julianna lopez [address], [place], [address], 06/13/2021 14:20:14 06/13/20 21 06/13/2021 urina lysis , dipst ick Nitrite neg Not Available [facility] [address], [place], [address], 06/13/2021 14:20:14 06/13/20 21 06/13/2021 urina lysis , dipst ick Urobilinogen neg Not Available Maryann shepard [address], [place], [address], 06/13/2021 14:20:14 06/13/20 21 06/13/2021 urina lysis , dipst ick Protein neg Not Available [facility] [address], [place], [address], 06/13/2021 14:20:14 06/13/20 21 06/13/2021 urina lysis , dipst ick pH 6 Not Available [facility] [address], [place], [address], 06/13/2021 14:20:14 06/13/20 21 06/13/2021 urina lysis , dipst ick Specific [place] 1.020 [facility] Available [facility] [address], [place], [address], 06/13/2021 14:20:14 06/13/20 21 06/13/2021 urina lysis , dipst ick Ketone neg Not Available [facility] [address], [place], [address], 06/13/2021 14:20:14 06/13/20 21 06/13/2021 urina lysis , dipst ick Bilirubin neg Not Available [facility] chanell [address], [place], [address], 06/13/2021 14:20:14 06/13/2006/13/2021 urina lysis , dipst ick Glucose neg Not Available [facility] [address], [place], [address], 06/13/2021 14:20:14 06/13/20 21 06/13/2021 urina lysis , dipst ick Appearance clear Not [facility] [address], [place], [address], 06/13/2021 14:20:14 06/13/2006/13/2021 urina lysis , dipst ick Color dark yellow Not Available [facility] [address], [place], [address], 06/13/2021 14:20:14 06/19/20 21 06/18/2021 MAMMO , scree christopher, bilat eral No observ ation record ed. [facility] [address], [place], [address], 06/20/2021 13:08:16 Result Notes Documentation Provider Name and Address Organization Details Recorded Time Culture, Urine : 06-19-21: pt informed. la,rma L Fartun lopez, [facility] 06/24/2021 11:31:58 Problems Name Problem SNOMED Code Status Onset Date Resolution Date Notes Provider Name and Address Organization Details Recorded Time Blood leukocyt e number above referenc e range [id number] Completed 201609/02/2020 Elevated white blood cell count, unspecif ied;Vinny rded Elsewher e: No Locat ion: [facility] S ource: EHR Lead Scientist madhuri: N Dorothea ce ID: 0001 Taurus lable Time: 11:00:[address] [facility] 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 12:35:26 Screenin g for malignan t neoplasm of rectum Completed 201509/02/2020 Encounte r for screenin g for malignan t neoplasm of rectum;R ecorded Elsewher e: No Locat ion: [facility] S ource: EHR Lead Scientist madhuri: N Frankiti ce ID: [id number] Taurus lable Time: 11:00:[address] [facility] 12:35:22 Evaluati on finding Completed 201609/02/2020 Hematuri a, unspecif ied;Vinny rded Elsewher e: No Locat ion: [facility] S ource: EHR Lead Scientist madhuri: N Frankiti ce ID: 0001 Taurus lable Time: 11:57:00 AM Rosibel Negro jessica, [facility] 12:34:58 Speciali zed medical examinat ion Completed 201409/02/2020 Gynecolo gical Examinat ion;Vinny rded Elsewher e: No Locat ion: [facility] S ource: [facility] madhuri: N Frankiti ce ID: 0001 Taurus lable Time: 11:00:00 AM Rosibel Negro [facility], [facility] [address] 12:35:[address] Concept Completed 201709/02/2020 Encntr for general adult medical exam w/o abnormal findings ;Recorde d Elsewher e: No Locat ion: [facility] S ource: [facility] madhuri: N Frankiti ce ID: 0001 Taurus lable Time: 11:30:00 AM Rosibel Sruthi [facility], [facility] 12:35:24 Radiolog ic finding [id number] Completed 201709/02/2020 Oth abn and inconclu sive findings on dx imaging of breast;R ecorded Elsewher e: No Locat ion: [facility] S ource: [facility] madhuri: N Frankiti ce ID: 0001 Taurus lable Time: 10:47:27 AM Rosibel Negro jessica, [facility] 12:34:55 Female genital organ symptoms [id number] Completed 201109/02/2020 Unspecif ied symptom associat ed with female genital organs;R ecorded Elsewher e: No Locat ion: [facility] S ource: [facility] madhuri: N Frankiti ce ID: 0001 Taurus lable Time: 01:45:00 PM Rosibel Negro jessica, [facility] 1 12:35:01 Screenin g for malignan t neoplasm of cervix Completed 201109/02/2020 Screenin g for malignan t neoplasm s of the cervix;R ecorded Elsewher e: No Locat ion: [facility] chanell [facility] S ource: EHR Lead Scientist madhuri: N Frankiti ce ID: 0001 Taurus lable Time: 01:00:00 PM Rosibel lopez [facility] 1 12:35:20 Microsco pic hematuri a [id number] Completed 201309/02/2020 MICROSCO PIC HEMATURI A;Record ed Elsewher e: No Locat ion: [facility] S ource: EHR Lead Scientist madhuri: N Practi ce ID: [id number] Taurus lable Time: 11:00:00 AM Rosibel lopez [facility] 1 12:35:14 Adult health examinat ion Completed 201409/02/2020 ROUTINE MEDICAL EXAM;Rec orded Elsewher e: No [facility]: [facility] Lead Scientist madhuri: N Frankiti ce ID: 0001 Taurus lable Time: 04:56:27 PM Rosibel lopez [facility] 1 12:34:49 Bone density finding 797477130 Active 2017 Ot disrd of bone density and structur e, unspecif ied site;Rec orded Elsewher e: No [facility]: EHR Lead Scientist madhuri: N Frankiti ce ID: 0001 Taurus lable Time: 10:47:27 AM Not Available [facility] 0 14:26:26 Obesity 810145375 Completed 201409/02/2020 Obesity; Recorded Elsewher e: No Locat ion: [facility] S ource: EHR Lead Scientist madhuri: N Practi ce ID: 0001 Taurus lable Time: 11:00:00 AM Rosibel lopez [facility] 1 12:35:15 Vaginiti s and vulvovag initis Completed 201009/02/2020 Vaginiti s;Record ed Elsewher e: No Locat ion: [facility] S ource: EHR Lead Scientist madhuri: N Practi ce ID: 0001 Taurus lable Time: 02:45:00 PM Rosibel Negro jessica [facility] 12:35:32 Leukopen ia 05772701 Completed 201109/02/2020 LEUKOCYT OPENIA NOS;Prac velasquez ID: [address] [facility] 12:35:12 Atrophic vaginiti s [id number] Completed 201509/02/2020 Senile vaginiti s;Record ed Elsewher e: No Locat ion: [facility] S ource: EHR Lead Scientist madhuri: N Practi ce ID: 0001 Taurus lable Time: 11:00:00 AM Rosibel Negro [facility] 12:34:51 Urinary tract infectio us disease [id number] Completed 201109/02/2020 Urinary Tract Infectio n;Record ed Elsewher e: No Locat ion: [facility] S ource: EHR Lead Scientist madhuri: N Practi ce ID: 0001 Taurus lable Time: 01:45:00 PM Rosibel Negro jessica [facility] 12:35:30 Increase d frequenc y of urinatio n [id number] Completed 201509/02/2020 Frequenc y of micturit ion;Prac velasquez ID: 0001 Rosibel Negro [facility] 12:35:[address] Concept Completed 201609/02/2020 Encounte r for general adult medical exam w abnormal findings ;Practic e ID: 0001 Rosibel Negro [facility] 12:35:18 Problem Notes None recorded. Procedures Surgical History Date Name Laterality Status Provider Name and Address Organization Details Recorded Time 09/02/19 21 Date of Last Pap Smear completed [facility] 09/02/2020 12:35:42 06/20/20 20 Date of Last Mammogram completed [facility] 09/02/2020 12:40:55 03/17/20 17 Flexible Sigmoidoscopy completed [facility] 09/09/2020 22:01:38 11/29/19 15 total replacement of right knee joint completed [facility] 09/09/2020 22:02:45 08/02/19 15 fluoroscopic arthrography of left knee completed [facility] 09/09/2020 22:03:58 08/02/19 15 total knee replacement completed [facility] 09/09/2020 22:04:52 08/02/19 11 fluoroscopic arthrography of right knee completed [facility] 09/09/2020 22:04:11 06/22/20 07 cholecystectomy completed [facility] 09/09/2020 22:00:11 08/02/19 01 fluoroscopic arthrography of left knee completed [facility] 09/09/2020 22:03:30 08/02/18 99 fluoroscopic arthrography of right knee completed [facility] 09/09/2020 22:03:12 08/02/18 89 ligation of bilateral fallopian tubes completed [facility] 09/09/2020 21:59:50 05/09/19 84 section completed [facility] 09/09/2020 21:58:59 08/02/18 81 Dilation and Curettage completed Rosibel Negor [facility] 09/09/2020 22:38:34 08/02/18 80 Dilation and Curettage completed Rosibelmirlande Negro [facility] 09/09/2020 22:38:29 08/02/18 78 Dilation and Curettage completed [facility] 09/09/2020 22:38:25 08/02/18 64 procedure on kidney completed [facility] 09/09/2020 22:01:04 Imaging Results Imaging Date Name Status LastModified by Organiz ation Details LastModified Time 06/18/2021 MAMMO, screening, bilateral completed [facility] [address] [facility], [place], [address], 06/20/2021 13:08:16 Procedure Notes None recorded. Medical Equipment None Reported. Allergies Allergen ID Allergen Name Allergen Category Reaction Reaction Severity Criticality Documentation Date Start Date Code Code System Note Provider Name and Address Organization Details Recorded Time 93677 theophyll ine medicatio n Not available Not available Not available 07/19/2020 04681 RxNorm Comme nt: [facility]; Not Available [facility] 0 14:15:01 44596 amoxicill in medicatio n Not available Not available Not available 07/19/2020 723 RxNorm Comme nt: [facility]; Not Available [facility] 0 14:15:01 14682 clioquino l medicatio n Not available Not available Not available 07/19/2020 5942 RxNorm Comme nt: [facility] Cau sativ e Agent : Viofo rm; Not Available [facility] 0 14:15:01 85420 povidone- iodine medicatio n Not available Not available Not available 07/19/2020 8611 RxNorm Comme nt: [facility]at [facility] Cau sativ e Agent : Betad ine; Not Available [facility] 0 14:15:01 16928 soap medicatio n Not available Not available Not available 07/19/2020 90096 UNK Comme nt: Locat ion: Maryann elkins Cau sativ e Agent : Betad ine; Not Available [facility] 0 14:15:01 39055 cimetidin e medicatio n Not available Not available Not available 07/19/2020 2541 RxNorm Comme nt: Locat ion: Maryann elkins Cau sativ e Agent : Tagam et; Not Available [facility] 0 14:15:01 26326 Betadine medicatio n rash Not available Not available 09/09/2020 77520 0 RxNorm Rosiebl lopez, [facility] 1 22:10:18 52056 Dilaudid medicatio n Not available Not available Not available 09/09/2020 87614 3 RxNorm Rosibel lopez, [facility] 1 22:11:11 60337 lisinopri l medicatio n Not available Not available Not available 09/09/2020 80219 RxNorm Rosibel lopez, [facility] 1 22:11:22 Medications Name Sig Start Date Stop Date Status Note LastModified by Organization Details LastModified Time cyclobenz aprine 10 mg tablet TAKE 1 TABLET BY MOUTH AT BEDTIME NEEDED FOR MUSCLE SPASMS active Not Available Not Available No t Available vitamin E 670 mg (1,000 unit) capsule 02/09 completed Prescrib ed Elsewher e: Yes Loca tion: [facility] M odify By: marta lorenzana DateTime [...] Elsewher e: Yes Loca tion: Velma lua [facility] odify By: amcal Lua ncounter DateTime : 09/02/19 16 09:45:00 AM Not Available Not Available Not Available Grape Seed 25 mg capsule active Prescrib ed Elsewher e: Yes Loca tion: [facility] odify By: bhavna lyons DateTime : 01/28/20 12 01:00:00 PM Not Available Not Available Not Available azithromy carlin 250 mg tablet take 2 tablet (500MG) by oral route every day for 1 day then 1 tablet (250 mg) by oral route once daily for 4 days 10/03 completed Prescrib ed Elsewher e: No Locat ion: [facility] odify By: gmedical Encount er DateTime : [...] Elsewher e: No Locat ion: [facility] odify By: jake Ro unter DateTime : 05/20/20 11 02:45:00 PM Not Available Not Available Not Available aspirin 81 mg tablet,de layed release active Not Available Not Available Not Available Faby-C 500 mg-50 mg tablet 01/27 completed Prescrib ed Elsewher e: Yes Loca tion: [facility] odify By: bhavna lyons DateTime : 05/20/20 [...] Elsewher e: No Locat ion: Velma lua [facility] odify By: jes Clement nter DateTime : 04/26/20 19 11:30:00 AM Not Available Not Available Not Available nystatin- triamcino lone 100,000 unit/gram -0.1 % topical ointment APPLY TO THE AFFECTED AREA(S) BY TOPICAL ROUTE 2 TIMES PER DAY x 5 days active Not Available Not Available No t Available FiberCon 625 mg tablet active Prescrib ed Elsewher e: Yes Loca tion: Vel[facility] lua [facility] odify By: jake Ro unter DateTime : 05/20/20 11 02:45:00 PM Not Available Not Available Not Available oxycodone -acetamin ophen 5 mg-325 mg tablet active Not Available Not Available Not Available Protonix 40 mg intraveno us solution infuse by intraven ous route every day 02/27 completed Prescrib ed Elsewher e: Yes Loca tion: [facility] odify By: bhavna lyons DateTime : 01/28/20 12 01:00:00 PM Not Available Not Available Not Available Flagyl 500 mg tablet take 1 tablet by oral route 3 times every day 09/02 completed Prescrib ed Elsewher e: No Locat ion: [facility] odify By: roel lorenzana DateTime : 02/25/20 14 09:03:36 PM Not Available Not Available Not Available valsartan 320 mg tablet active Not Available Not Available Not Available magnesium 100 mg capsule 02/09 completed Prescrib ed Elsewher e: Yes Loca tion: [facility] odify By: marta tamayounthannah DateTime : 01/28/20 12 01:00:00 PM Not Available Not Available Not Available raloxifen e 60 mg tablet TAKE 1 TABLET BY MOUTH ONCE DAILY FOR 90 DAYS active Not Available Not Available No t Available Levaquin 500 mg tablet take 1 tablet by oral route every 24 hours 09/02 completed Prescrib ed Elsewher e: No Locat ion: [facility] odify By: amcal lorenzana DateTime : 02/25/20 [...] Prescrib ed Elsewher e: Yes Loca tion: [facility] odify By: jake Ro unter DateTime : 05/20/20 11 02:45:00 PM Not Available Not Available Not Available Terazol 7 0.4 % vaginal cream insert 1 applicat orful by vaginal route every day for 7 days at bedtime 03/29 completed Prescrib ed Elsewher e: No Locat ion: [facility] chanell [facility] odify By: nataly lorenzana DateTime : 03/23/20 17 10:54:23 AM Not Available Not Available Not Available valsartan 160 mg tablet TAKE 1 TABLET BY MOUTH ONCE DAILY active Not Available Not Available No t Available Calcium Citrate + D 315 mg-5 mcg (200 unit) tablet 02/27 completed Prescrib ed Elsewher e: Yes [facility]oca [facility]: [facility] odify By: bhavna lyons DateTime : 05/20/20 11 02:45:00 PM Not Available Not Available Not Available Bactrim DS 800 mg-160 mg tablet take 1 tablet by oral route every 12 hours 10/04 completed Prescrib ed Elsewher e: No Locat ion: [facility] odify By: nataly lorenzana DateTime : 04/09/20 16 09:33:19 AM Not Available Not Available Not Available Vitamin C 500 mg capsule,e xtended release 02/09 completed Prescrib ed Elsewher e: Yes Loca tion: [facility] odify By: marta lorenzana DateTime : 01/28/20 12 01:00:00 PM Not Available Not Available Not Available Vitamins and Minerals tablet active Prescrib ed Elsewher e: Yes Loca tion: [facility] odify By: bhavna lyons DateTime : 01/28/20 12 01:00:00 PM Not Available Not Available Not Available Zn-Plus-P rotein 15 mg tablet 02/09 completed Prescrib ed Elsewher e: Yes Loca tion: [facility] odify By: marta lorenzana DateTime : 01/28/20 12 01:00:00 PM Not Available Not Available Not Available metformin 500 mg/5 mL oral solution take 10 millilit er by oral route 2 times every day with meals 09/02 completed Prescrib ed Elsewher e: Yes Loca tion: [facility] odify By: danette elkins DateTime : [...] Prescrib ed Elsewher e: Yes Loca tion: [facility] odify By: jake osorio Enco unter DateTime : 05/20/20 11 02:45:00 PM Not Available Not Available Not Available Fish Oil 360 mg-1,200 mg capsule active Prescrib ed Elsewher e: Yes Loca tion: [facility] odify By: jake daltoni Enco unter DateTime : 05/20/20 11 02:45:00 PM Not Available Not Available Not Available Prevnar 13 (PF) 0.5 mL intramusc ular syringe PHARMACY ADMINIST ERED active Not Available Not Available No t Available Tirosint 25 mcg capsule take 1 capsule (25MCG) by oral route every day 02/09 completed Prescrib ed Elsewher e: No Locat ion: [facility] odify By: marta lorenzana DateTime : 05/20/20 11 02:45:00 PM Not Available Not Available Not Available olive leaf extract 250 mg capsule active Prescrib ed Elsewher e: Yes Loca tion: [facility] odify By: bhavna lyons DateTime : 02/28/20 14 11:00:00 AM Not Available Not Available Not Available olive leaf extract active Not Available Not Available Not Available ToyTalk 1.5 billion cell capsule 02/27 completed Prescrib ed Elsewher e: Yes Loca tion: [facility] odify By: bhavna lyons DateTime : 01/28/20 12 01:00:00 PM Not Available Not Available Not Available OneTouch Verio test strips active Not Available Not Available Not Available Multi Vitamin 9 mg iron/15 mL oral liquid active Prescrib ed Elsewher e: Yes Loca [facility]ion: [facility] odify By: marta lorenzana DateTime : 02/10/20 13 11:30:00 AM Not Available Not Available Not Available Fluzone High-Dose Quad 2020-21 (PF) 240 mcg/0.7 mL IM syringe PHARMACY ADMINIST ERED active Not Available Not Available No t Available Vitals Date Recorded Body height Provider Name an d Address Organization Details Last Updated DateTime 06/13/2021 162.56 cm Yudith Mauro [facility] 06/13/2021 14:19:43 Date Recorded Systolic blood pressure Diastolic blood pressure Provider Name and Address Organization Details Last Updated DateTime 06/13/2021 138 mm[Hg] 82 mm[Hg] Elena Brown, [facility]- [address], [place], [address], [facility] 06/14/2021 07:55:35 Date Recorded Body height Body mass index (BMI) Body weight Systolic blood pressure Diastolic blood pressure Provider Name and Address Organization Details Last Updated DateTime 09/02/2020 162.56 cm 34.8 kg/m2 61438.25 g 157 mm[Hg] 87 mm[Hg] Rosibel Negro [facility] 12:33:34 Social History Question Answer Notes LastModified by Organizat ion Details LastModified Time Tobacco Smoking Status Never Smoker Rosibel Negro [facility], [facility] 09/09/2020 21:58:28 What Is Your Level Of Alcohol Consumption? Occasional [email or web address] Information not available 09/09/2020 What Is Your Level Of Caffeine Consumption? Occasional [email or web address] Information not available 09/09/2020 Have You Ever Been Counseled For Unhealthy Alcohol Use? No [email or web address] Information not available 09/09/2020 Do You Use Any Illicit Or Recreational Drugs? No [email or web address] Information not available 09/09/2020 Has Tobacco Cessation Counseling Been Provided? No Information not available 09/09/2020 Do You Or Have You Ever Used Any Other Forms Of Tobacco Or Nicotine? No [email or web address] Information not available 09/09/2020 Sex: Female Functional Status Question Answer Note LastModified by Organizat ion Details LastModified Time What is your exercise level? Occasional [email or web address] Information not available 09/09/2020 Mental Status None recorded. Family History Relationship Description Onset Age of this Age Resolved Age Notes LastModified by Organization Details LastModified Time Father Diabetes mellitus [email or web address] Not available 09/09 21:54:32 Maternal Grandmother Malignant tumor of pancreas [email or web address] Not available 09/09 21:55:12 Mother Malignant tumor of colon [email or web address] Not available 09/09 21:55:28 Mother Asthma [email or web address] Not available 09/09/2020 21:55:43 Mother Hypertensive disorder [email or web address] Not available 09/09 21:55:53 Mother Malignant tumor of lung [email or web address] Not available 09/09 22:05:34 Paternal Aunt Lupus erythematosu s [id number] Not available 09/09 21:56:20 Paternal Grandfather Cerebrovascu lar accident [email or web address] Not available 21:56:43 Notes:Father: Diabetes demond shanks [...] SNOMED-CT Code Diagnosis ICD10 Code Diagnosis Note [id number] [facility] [address] [address] 09/02/2020 11:55:56 09/02/2020 19:14:54 Gynecologic examination [id number] Z01.419 Take Calcium with Vitamin D 12-1500mg daily. Do monthly self breast exams. It is advised to get annual flu shot in the fall and [facility]. If you haven't received the Tdap [...] this patient s visit, including available hand floor molder upon arrive, tempercarlin e check and being asked a series of screening questions. All staff wore face coverings during this encounter, as well as provided additional cleaning and sanitizing of all surfaces, including countertop s, pens, chairs, door handles, light switches, etc, prior to and following the patient s visit. [id number] Elena Brown [facility] [address] [address] 06/13/2021 13:55:37 06/14/2021 10:38:50 Urinary symptoms [id number] R39.9 No urinary sx's. Vaginal irritation [id number] N89.8 Use ointment prescribed along with [...] this patient s visit, including available hand floor molder upon arrive, temperatur e check and being [...] Name 09/02/2020 1 [place] Erin Cameron [id number] Erin Oliverberthy 09/02/2020 2 Etherios (MEDICARE SUPPLEMENT) Erin Reyes Penberthy [id number] Erin Reyes Penberthy 06/13/2021 1 [place] Erin Oliverberthy [id number] Erin Reyes Penberthy 06/13/2021 2 Etherios (MEDICARE SUPPLEMENT) Erin Reyes Penberthy [id number] Erin Cameron Notes Date Note Type Note [...] colonoscopy screening WHITNEY Sawant- [address], [place], [address], [place] [facility] 09/02/2020 12:56:31 06/13/2021 text/html Here today for urine sample collection possible UTI.Sx's include vaginal itching & irritation.Neg urgency, frequency or dysuria of urination.Not SA for yearsNeg pelvic/abd/flank pain.Wears pads daily for RIVER/UUI stated as being manageable.Neg new laundry detergents or scented hygeine products.Unable to recall any other possible contact irritants. Elena Brown, LYDIA- [address], [place], [address], [facility] 06/14/2021 08:09:58 OBGyn Episode Ob Episode Information Episode Created Date Number of Fetuses Patient Bloodtype Patient rh Status Prepregnancy Weight lbs Domestic Partner Domestic Partner Phone Father Name Firestop/Containment Worker Status 09/09/19 21 1 CLOSED Fetus Data [...] Domestic Partner Domestic Partner Phone Father Name Firestop/Containment Worker Status 09/09/19 21 1 CLOSED Fetus Data [...] Domestic Partner Domestic Partner Phone Father Name Firestop/Containment Worker Status 09/09/19 21 1 CLOSED Fetus Data [...]
--- OUTSIDE RECORDS SUMMARY | 2024-11-23 10:43 | XMS_ITS | Clinical Summary ---
Author Organization [facility] Address [address] [place] [address] Care Team Providers Care Assembler Product Name Role Phone Unavailable Primary Care Provider [...] 1 - Tdap) 1973 Mammogram Screening 1994 Pneumococcal Vaccine: 50+ Ye ars (1 of 1 - PCV) 2004 Zoster Vaccines (1 of 2) 2004 Dexa Scan (General) 2019 COVID-19 Vaccine ( - 2023-2 5 season) 2024 RSV Immunization or 60+ Years (1 [...]
--- OUTSIDE RECORDS SUMMARY | 2024-11-23 10:43 | XMS_ITS | Continuity of Care Document ---
Author Organization [facility] Address [address] [place] [address] [address] [place] [address] Phone Care Team Providers Care Rotary Furnace Tender Name Role Phone [facility] Unavailable Unavail able Eliazar De La Torre Unavailable Unavailable Advance Directives Directive Yes / No Effective Date File Name No Information Encounters Encounter Description Practice Location Reason(s) For Visit Diagnoses Date Provider Providers Copied on Encounter [facility], [id number] [place] [address] [address], [place], [place], [id number], [place] tel:[phone] [facility] No Information [facility] [address] [facility], [address], [place], [place], [id number] , [place]. [phone] Referring Provider: Channing Galindo, [address] [place] [address] [address], [place], [address]. tel:[phone] sulting Provider: Eliazar De La Torre, [address] [place] [address], [place], [address]. tel:[phone] Family History Family Member Type Diagnosis Age At Onset No Information Payers Payer name Insurance type Covered green party ID Authoriza tion(s) No Information Social History [...]
== END 2024-11-23 09:44 | disposition home or self-care (01) ==
PROVIDERS: PCP Family Medicine; Visit Provider Nurse Practitioner Family
DX: R91.8 Other nonspecific abnormal finding of lung field (principal)
CPT/HCPCS: 71250

== ENCOUNTER 2024-12-16 07:18 | Outpatient (CLI) | payer MEDICARE, SELFPAY ==
--- OUTSIDE RECORDS SUMMARY | 2024-12-16 07:24 | XMS_ITS | Continuity of Care Document ---
Author Organization [facility] Address [address] [place] [address] [address] [place] [address] Phone Care Team Providers Care [place] Drill Operator Name Role Phone [facility] Unavailable Unavail able Eliazar De La Torre Unavailable Unavailable Advance Directives Directive Yes / No Effective Date File Name No Information Encounters Encounter Description Practice Location Reason(s) For Visit Diagnoses Date Provider Providers Copied on Encounter [facility], [id number] [place] [address] [address], [place], [place], [id number], [place] tel:[phone] [facility] No Information [facility] [address] [facility], [address], [place], [place], [id number] , [place]. [phone] Referring Provider: Channing Galindo, [address] [place] [address] [address], [place], [address]. tel:[phone] sulting Provider: Eliazar De La Torre, [address] [place] [address], [place], [address]. tel:[phone] Family History Family Member Type Diagnosis Age At Onset No Information Payers Payer name Insurance type Covered libertarian ID Authoriza tion(s) No Information Social History [...]
--- OUTSIDE RECORDS SUMMARY | 2024-12-16 07:24 | XMS_ITS | Clinical Summary ---
Author Organization [facility] Address [address] [place] [address] Care Team Providers Care Soda Tester Name Role Phone Unavailable Primary Care Provider [...]
--- OUTSIDE RECORDS SUMMARY | 2024-12-16 07:24 | XMS_ITS | Data Portability ---
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 Patient will come back in a year unless there are new symptoms. [email or web address] Not available 09/02/2020 12:32:44 Plan of Treatment Reminders Order Date Submit Date Provider Last Modified By Organization Details Last Modified Time Details Appointments None recorded. Lab urinalysis , dipstick 2020 021 [email or web address], [address], [place], [address], 14:21:24 Referral None recorded. Procedures None recorded. Surgeries None recorded. Imaging None recorded. Medication Orders nystatin-t riamcinolo ne 100,000 unit/gram- 0.1 % topical ointment 2020 021 [facility] [address] [facility], [place], [address], 14:37:58 Patient TargetsNo targets recorded. Patient Instructions Encounter Date Encounter Id Patient Instructions Last Modified By Organization Details Last Modified Time 09/02/2020 [id number] [email or web address] Not available 12:56:09 Reason for Referral [...] Resul ting Lab: [facility] [address] [facility] [address] Tel: CULTU RE ----- ----- ----- --- No growt h in 1 day (dete ction level of 10,00 0 colon ies / ml.) Not Available [facility] (Lab) [address] [facility], [place], [address], 06/19/2021 01:23:47 06/13/20 21 06/13/2021 VAGIN ITIS/ VAGIN OSIS, DNA PROBE isis sp. detection, direct probe Negati ve negati ve Not Available [facility] (Lab) [address] [place], [address], 06/19/2021 01:23:48 06/13/20 21 06/13/2021 VAGIN ITIS/ VAGIN OSIS, DNA PROBE gardnerella vag. detection, direct probe Negati ve negati ve Not Available [facility] (Lab) [address] [place], [address], 06/19/2021 01:23:48 06/13/20 21 06/13/2021 VAGIN ITIS/ VAGIN OSIS, DNA PROBE trichomonas vag. detection, direct probe Negati ve negati ve Not Available [facility] (Lab) [address] [place], [address], 06/19/2021 01:23:48 06/13/20 21 06/13/2021 CULTU RE: HERPE S SIMPL EX VIRUS (HSV) , REFLE X TYPIN G source SWAB Not Available [facility] (Lab) [address] [facility], [place], [address], 06/19/2021 01:23:49 06/13/20 21 06/13/2021 CULTU RE: HERPE S SIMPL EX VIRUS (HSV) , REFLE X TYPIN G hsv culture, body fluid NOT ISOLAT ED REFER ENCE RANGE : NOT ISOLA LOYDA Perfo rming Organ izati on Infor matio n: Site ID: [id number] Name: [facility] Addre ss: [id number] [address] [place] [address] Direc tor: Sindy schroeder MD Not Available [facility] (Lab) [address] [facility], [place], [address], 06/19/2021 01:23:49 06/13/20 21 06/13/2021 urina lysis , dipst ick Leukocytes trace Not Available Julianna lopez [address], [place], [address], 06/13/2021 14:20:14 06/13/20 21 06/13/2021 urina lysis , dipst ick Nitrite neg Not Available [place] [address], [place], [address], 06/13/2021 14:20:14 06/13/20 21 06/13/2021 urina lysis , dipst ick Urobilinogen neg Not Available Maryann shepard [address], [place], [address], 06/13/2021 14:20:14 06/13/20 21 06/13/2021 urina lysis , dipst ick Protein neg Not Available [place] [address], [place], [address], 06/13/2021 14:20:14 06/13/20 21 06/13/2021 urina lysis , dipst ick pH 6 Not Available [place], [place], [address], 06/13/2021 14:20:14 06/13/20 21 06/13/2021 urina lysis , dipst ick Specific Newton 1.020 Not Available [facility] roseanne [address], [place], [address], 06/13/2021 14:20:14 06/13/20 21 06/13/2021 urina lysis , dipst ick Ketone neg Not Available [place], [place], [address], 06/13/2021 14:20:14 06/13/20 21 06/13/2021 urina lysis , dipst ick Bilirubin neg Not Available [facility] [address], [place], [address], 06/13/2021 14:20:14 06/13/2006/13/2021 urina lysis , dipst ick Glucose neg Not Available [place], [place], [address], 06/13/2021 14:20:14 06/13/20 21 06/13/2021 urina lysis , dipst ick Appearance clear Not Available [facility] [address], [place], [address], 06/13/2021 14:20:14 06/13/2006/13/2021 urina lysis , dipst ick Color dark yellow Not Available [place], [place], [address], 06/13/2021 14:20:14 06/19/20 21 06/18/2021 MAMMO , scree christopher, bilat eral No observ ation record ed. [facility] [address], [place], [address], 06/20/2021 13:08:16 Result Notes Documentation Provider Name and Address Organization Details Recorded Time Culture, Urine : 06-19-21: pt informed. la,rma L Fartun [facility], [facility] 06/24/2021 11:31:58 Problems Name Problem SNOMED Code Status Onset Date Resolution Date Notes Provider Name and Address Organization Details Recorded Time Blood leukocyt e number above referenc e range [id number] Completed 201609/02/2020 Elevated white blood cell count, unspecif ied;Vinny rded Elsewher e: No Locat ion: [facility] S ource: EHR Safety Deposit Boxes Custodian madhuri: N Frankiti ce ID: 0001 Taurus lable Time: 11:00:00 AM Rosibel Negro [facility] 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 12:35:26 Screenin g for malignan t neoplasm of rectum Completed 201509/02/2020 Encounte r for screenin g for malignan t neoplasm of rectum;R ecorded Elsewher e: No Locat ion: [facility] S ource: EHR Safety Dep[employer] Boxes Custodian madhuri: N Practi ce ID: [id number] Taurus lable Time: 11:00:00 AM Rosibel Negro [facility] 12:35:22 Evaluati on finding Completed 201609/02/2020 Hematuri a, unspecif ied;Vinny rded Elsewher e: No Locat ion: [facility] S ource: EHR [employer] Custodian madhuri: N Frankiti ce ID: 0001 Taurus lable Time: 11:57:00 AM Rosibel Negro [facility] 12:34:58 Speciali zed medical examinat ion Completed 201409/02/2020 Gynecolo gical Examinat ion;Vinny rded Elsewher e: No Locat ion: [facility] S ource: [facility] madhuri: N Frankiti ce ID: 0001 Taurus lable Time: 11:00:00 AM Rosibel Negro [facility], [facility] 12:35:[address] Concept Completed 201709/02/2020 Encntr for general adult medical exam w/o abnormal findings ;Recorde d Elsewher e: No Locat ion: [facility] S ource: [facility] madhuri: N Frankiti ce ID: 0001 Taurus lable Time: 11:30:00 AM Rosibel Negro [facility], [facility] 12:35:24 Evaluati on finding [id number] Completed 201709/02/2020 Oth abn and inconclu sive findings on dx imaging of breast;R ecorded Elsewher e: No Locat ion: [facility] S ource: [facility] madhuri: N Frankiti ce ID: 0001 Taurus lable Time: 10:47:27 AM Rosibel Negro [facility], [facility] 12:34:55 Female genital organ symptoms [id number] Completed 201109/02/2020 Unspecif ied symptom associat ed with female genital organs;R ecorded Elsewher e: No Locat ion: [facility] S ource: [facility] madhuri: N Frankiti ce ID: 0001 Taurus lable Time: 01:45:00 PM Rosibel Negro [facility] 12:35:01 Screenin g for malignan t neoplasm of cervix Completed 201109/02/2020 Screenin g for malignan t neoplasm s of the cervix;R ecorded Elsewher e: No Locat ion: [facility] S ource: EHR Safety Deposit Boxes Custodian madhuri: N Frankiti ce ID: 0001 Taurus lable Time: 01:00:00 PM Rosibel lopez [facility] 1 12:35:20 Microsco pic hematuri a [id number] Completed 201309/02/2020 MICROSCO PIC HEMATURI A;Record ed Elsewher e: No Locat ion: [facility] S ource: EHR [employer] Custodian madhuri: N Frankiti ce ID: [id number] Taurus lable Time: 11:00:00 AM Rosibel lopez [facility] 1 12:35:14 Adult health examinat ion Completed 201409/02/2020 ROUTINE MEDICAL EXAM;Rec orded Elsewher e: No Locat ion: [facility] S ource: [employer] Custodian madhuri: N Frankiti ce ID: 0001 Taurus lable Time: 04:56:27 PM Rosibel Negro jessica [facility] 1 12:34:49 Bone density finding [id number] Active 2017 Oth disrd of bone density and structur e, unspecif ied site;Rec orded Elsewher e: No Locat ion: [facility] S ource: EHR [employer] Custodian madhuri: N Frankiti ce ID: [id number] Taurus lable Time: 10:47:27 AM Not Available [facility] 0 14:26:26 Obesity [id number] Completed 201409/02/2020 Obesity; Recorded Elsewher e: No Locat ion: [facility] S ource: EHR [employer] Custodian madhuri: N Frankiti ce ID: 0001 Taurus lable Time: 11:00:00 AM Rosibel lopez [facility] 1 12:35:15 Vaginiti s and vulvovag initis Completed 201009/02/2020 Vaginiti s;Record ed Elsewher e: No [facility]: EHR Safety Deposit Boxes Custodian madhuri: N Practi ce ID: 0001 Taurus lable Time: 02:45:00 PM Rosibel Negro jessica [facility] 12:35:32 Leukopen ia [id number] Completed 201109/02/2020 LEUKOCYT OPENIA NOS;Prac velasquez ID: [address] [facility] 12:35:12 Atrophic vaginiti s [id number] Completed 201509/02/2020 Senile vaginiti s;Record ed Elsewher e: No Locat ion: [facility] S ource: EHR [employer] Custodian madhuri: N Practi ce ID: [id number] Taurus lable Time: 11:00:00 AM Rosibel Negro [facility] 12:34:51 Urinary tract infectio us disease [id number] Completed 201109/02/2020 Urinary Tract Infectio n;Record ed Elsewher e: No Locat ion: [facility] S ource: EHR [employer] Dep[employer] Boxes Custodian madhuri: N Practi ce ID: [id number] Taurus lable Time: 01:45:00 PM Rosibel Negro [facility] 12:35:30 Increase d frequenc y of urinatio n [id number] Completed 201509/02/2020 Frequenc y of micturit ion;Prac velasquez ID: 0001 Rosibel Nergo [facility] 12:35:[address] Concept Completed 201609/02/2020 Encounte r for general adult medical exam w abnormal findings ;Practic e ID: 0001 Rosibel Negro [facility] 12:35:18 Problem Notes None recorded. Procedures Surgical History Date Name Laterality Status Provider Name and Address Organization Details Recorded Time 09/02/19 21 Date of Last Pap Smear completed [facility] 09/02/2020 12:35:42 06/20/20 20 Date of Last Mammogram completed [facility] 09/02/2020 12:40:55 03/17/20 17 Flexible Sigmoidoscopy completed [facility] 09/09/2020 22:01:38 11/29/19 15 total replacement of right knee joint completed [facility] 09/09/2020 22:02:45 08/02/19 15 fluoroscopic arthrography of left knee completed [facility] 09/09/2020 22:03:58 08/02/19 15 total knee replacement completed [facility] 09/09/2020 22:04:52 08/02/19 11 fluoroscopic arthrography of right knee completed [facility] 09/09/2020 22:04:11 06/22/20 07 cholecystectomy completed [facility] 09/09/2020 22:00:11 08/02/19 01 fluoroscopic arthrography of left knee completed [facility] 09/09/2020 22:03:30 08/02/18 99 fluoroscopic arthrography of right knee completed [facility] 09/09/2020 22:03:12 08/02/18 89 ligation of bilateral fallopian tubes completed [facility] 09/09/2020 21:59:50 05/09/19 84 section completed [facility] 09/09/2020 21:58:59 08/02/18 81 Dilation and Curettage completed Rosibel Negro [facility] 09/09/2020 22:38:34 08/02/18 80 Dilation and Curettage completed Rosibelmirlande Negro [facility] 09/09/2020 22:38:29 08/02/18 78 Dilation and Curettage completed [facility] 09/09/2020 22:38:25 08/02/18 64 procedure on kidney completed [facility] 09/09/2020 22:01:04 Imaging Results Imaging Date Name Status LastModified by Organiz ation Details LastModified Time 06/18/2021 MAMMO, screening, bilateral completed [facility] [address] [facility], [place], [address], 06/20/2021 13:08:16 Procedure Notes None recorded. Medical Equipment None Reported. Allergies Allergen ID Allergen Name Allergen Category Reaction Reaction Severity Criticality Documentation Date Start Date Code Code System Note Provider Name and Address Organization Details Recorded Time 35490 theophyll ine medicatio n Not available Not available Not available 07/19/2020 71216 RxNorm Comme nt: [facility]; Not Available [facility] 0 14:15:01 19140 amoxicill in medicatio n Not available Not available Not available 07/19/2020 723 RxNorm Comme nt: [facility]; [facility] 0 14:15:01 58674 clioquino l medicatio n Not available Not available Not available 07/19/2020 5942 RxNorm Comme nt: [facility] Cau sativ e Agent : Viofo rm; Not Available [facility] 0 14:15:01 79776 povidone- iodine medicatio n Not available Not available Not available 07/19/2020 8611 RxNorm Comme nt: [facility] Cau sativ e Agent : Betad ine; Not Available [facility] 0 14:15:01 90707 soap medicatio n Not available Not available Not available 07/19/2020 06307 UNK Comme nt: Locat ion: Maryann elkins Cau sativ e Agent : Betad ine; Not Available [facility] 0 14:15:01 97275 cimetidin e medicatio n Not available Not available Not available 07/19/2020 2541 RxNorm Comme nt: Locat ion: Maryann elkins Cau sativ e Agent : Tagam et; Not Available [facility] 0 14:15:01 84507 Betadine medicatio n rash Not available Not available 09/09/2020 41418 0 RxNorm Rosbiel lopez, [facility] 1 22:10:18 89635 Dilaudid medicatio n Not available Not available Not available 09/09/2020 84895 3 RxNorm Rosibel lopez, [facility] 1 22:11:11 93141 lisinopri l medicatio n Not available Not available Not available 09/09/2020 35533 RxNorm Rosibel lopez, [facility] 1 22:11:22 Medications Name Sig Start Date Stop Date Status Note LastModified by Organization Details LastModified Time cyclobenz aprine 10 mg tablet TAKE 1 TABLET BY MOUTH AT BEDTIME NEEDED FOR MUSCLE SPASMS active Not Available Not Available No t Available vitamin E 670 mg (1,000 unit) capsule 02/09 completed Prescrib ed Elsewher e: Yes Loca tion: [facility] M odify By: marta lorenzana DateTime [...] Elsewher e: Yes Loca tion: Velma lua [facility] odify By: roel Lua ncounter DateTime : 09/02/19 16 09:45:00 AM Not Available Not Available Not Available Grape Seed 25 mg capsule active Prescrib ed Elsewher e: Yes Loca tion: Velma lua [facility] odify By: bhavna lyons DateTime : 01/28/20 12 01:00:00 PM Not Available Not Available Not Available azithromy carlin 250 mg tablet take 2 tablet (500MG) by oral route every day for 1 day then 1 tablet (250 mg) by oral route once daily for 4 days 10/03 completed Prescrib ed Elsewher e: No Locat ion: Velma lua [facility] odify By: gmedicjerod Encount er DateTime : 09/25/19 14 10:34:38 [...] Elsewher e: No Locat ion: Velma lua [facility] odify By: jake Ro unter DateTime : 05/20/20 11 02:45:00 PM Not Available Not Available Not Available aspirin 81 mg tablet,de layed release active Not Available Not Available Not Available Faby-C 500 mg-50 mg tablet 01/27 completed Prescrib ed Elsewher e: Yes Loca tion: [facility] odify By: bhavna lyons DateTime : [...] Elsewher e: No Locat ion: Velma lua [facility] odify By: jes Clement nter DateTime [...] Elsewher e: Yes Loca tion: Velma lua [facility] odify By: jake Ro unter DateTime : 05/20/20 11 02:45:00 PM Not Available Not Available Not Available oxycodone -acetamin ophen 5 mg-325 mg tablet active Not Available Not Available Not Available Protonix 40 mg intraveno us solution infuse by intraven ous route every day 02/27 completed Prescrib ed Elsewher e: Yes Loca tion: Velma lua [facility] odify By: bhavna lyons DateTime : 01/28/20 12 01:00:00 PM Not Available Not Available Not Available Flagyl 500 mg tablet take 1 tablet by oral route 3 times every day 09/02 completed Prescrib ed Elsewher e: No Locat ion: Velma lua [facility] odify By: roel lorenzana DateTime : 02/25/20 14 09:03:36 PM Not Available Not Available Not Available valsartan 320 mg tablet active Not Available Not Available Not Available magnesium 100 mg capsule 02/09 completed Prescrib ed Elsewher e: Yes Loca tion: Velma lua [facility] odify By: marta lorenzana DateTime : [...] Elsewher e: No Locat ion: Velma lua [facility] odify By: amcal lorenzana DateTime : [...] Prescrib ed Elsewher e: Yes Loca tion: [facility] chanell [facility] odify By: jake Ro unter DateTime : 05/20/20 11 02:45:00 PM Not Available Not Available Not Available Terazol 7 0.4 % vaginal cream insert 1 applicat orful by vaginal route every day for 7 days at bedtime 03/29 completed Prescrib ed Elsewher e: No Locat ion: [facility] odify By: nataly lorenzana DateTime : 03/23/20 17 10:54:23 AM Not Available Not Available Not Available valsartan 160 mg tablet TAKE 1 TABLET BY MOUTH ONCE DAILY active Not Available Not Available No t Available Calcium Citrate + D 315 mg-5 mcg (200 unit) tablet 02/27 completed Prescrib ed Elsewher e: Yes [facility] odify By: bhavna lyons DateTime : 05/20/20 11 02:45:00 PM Not Available Not Available Not Available Bactrim DS 800 mg-160 mg tablet take 1 tablet by oral route every 12 hours 10/04 completed Prescrib ed Elsewher e: No Locat ion: [facility] odify By: nataly lorenzana DateTime : 04/09/20 16 09:33:19 AM Not Available Not Available Not Available Vitamin C 500 mg capsule,e xtended release 02/09 completed Prescrib ed Elsewher e: Yes Loca tion: [facility] odify By: marta lorenzana DateTime : 01/28/20 12 01:00:00 PM Not Available Not Available Not Available Vitamins and Minerals tablet active Prescrib ed Elsewher e: Yes Loca tion: [facility] odify By: bhavna lyons DateTime : 01/28/20 12 01:00:00 PM Not Available Not Available Not Available Zn-Plus-P rotein 15 mg tablet 02/09 completed Prescrib ed Elsewher e: Yes Loca tion: [facility] odify By: marta lorenzana DateTime : 01/28/20 12 01:00:00 PM Not Available Not Available Not Available metformin 500 mg/5 mL oral solution take 10 millilit er by oral route 2 times every day with meals 09/02 completed Prescrib ed Elsewher e: Yes Loca tion: [facility] odify By: danette elkins DateTime : [...] Prescrib ed Elsewher e: Yes [facility] odify By: jake osorio Enco unter DateTime : 05/20/20 11 02:45:00 PM Not Available Not Available Not Available Fish Oil 360 mg-1,200 mg capsule active Prescrib ed Elsewher e: Yes Loca tion: [facility] odify By: jake daltoni Enco unter DateTime : 05/20/20 11 02:45:00 PM Not Available Not Available Not Available Prevnar 13 (PF) 0.5 mL intramusc ular syringe PHARMACY ADMINIST ERED active Not Available Not Available No t Available Tirosint 25 mcg capsule take 1 capsule (25MCG) by oral route every day 02/09 completed Prescrib ed Elsewher e: No Locat ion: Velma lua [facility] odify By: marta lorenzana DateTime : 05/20/20 11 02:45:00 PM Not Available Not Available Not Available olive leaf extract 250 mg capsule active Prescrib ed Elsewher e: Yes [facility] odify By: bahvna lyons DateTime : 02/28/20 14 11:00:00 AM Not Available Not Available Not Available olive leaf extract active Not Available Not Available Not Available Mamba 1.5 billion cell capsule 02/27 completed Prescrib ed Elsewher e: Yes Loca tion: Velma lua [facility] odify By: bhavna lyons DateTime : 01/28/20 12 01:00:00 PM Not Available Not Available Not Available OneTouch Verio test strips active Not Available Not Available Not Available Multi Vitamin 9 mg iron/15 mL oral liquid active Prescrib ed Elsewher e: Yes Loca tion: [facility] odify By: marta lorenzana DateTime : 02/10/20 13 11:30:00 AM Not Available Not Available Not Available Fluzone High-Dose Quad 2020-21 (PF) 240 mcg/0.7 mL IM syringe PHARMACY ADMINIST ERED active Not Available Not Available No t Available Vitals Date Recorded Body height Provider Name an d Address Organization Details Last Updated DateTime 06/13/2021 162.56 cm Yudith Mauro [facility] 06/13/2021 14:19:43 Date Recorded Systolic blood pressure Diastolic blood pressure Provider Name and Address Organization Details Last Updated DateTime 06/13/2021 138 mm[Hg] 82 mm[Hg] Elena Brown, [facility]- [address], [place], [address], [facility] 06/14/2021 07:55:35 Date Recorded Body height Body mass index (BMI) Body weight Systolic blood pressure Diastolic blood pressure Provider Name and Address Organization Details Last Updated DateTime 09/02/2020 162.56 cm 34.8 kg/m2 27318.25 g 157 mm[Hg] 87 mm[Hg] Rosibel Ordoñeztz [facility] 12:33:34 Social History Question Answer Notes LastModified by Organizat ion Details LastModified Time Tobacco Smoking Status Never Smoker Rosibel Negro null, [facility] 09/09/2020 21:58:28 What Is Your Level Of Caffeine Consumption? Occasional [email or web address] Information not available 09/09/2020 Have You Ever Been Counseled For Unhealthy Alcohol Use? No [email or web address] Information not available 09/09/2020 Has Tobacco Cessation Counseling Been Provided? No [email or web address] Information not available 09/09/2020 Sex: Female Functional Status Question Answer Note LastModified by Organizat ion Details LastModified Time Do you use any illicit or recreational drugs? No [email or web address] Information not available 09/09/2020 Do you or have you ever used any other forms of tobacco or nicotine? No [email or web address] Information not available 09/09/2020 What is your level of alcohol consumption? Occasional [email or web address] Information not available 09/09/2020 What is your exercise level? Occasional [email or web address] Information not available 09/09/2020 Mental Status None recorded. Family History Relationship Description Onset Age of this Age Resolved Age [id number]||2024-12-18 08:26:00|MM_ITS|BURKT|Imaging|[id number]|"EXAMINATION: MM screening jerry BI w richard HISTORY: Screening TECHNIQUE: Craniocaudal and mediolateral oblique 3-D tomosynthesis images were obtained and synthetic 2-D images were generated. CAD analysis was submitted and interpreted. COMPARISON: Comparison to multiple prior studies sequentially, with oldest reviewed study dated 03/29. BREAST PARENCHYMAL COMPOSITION: Not dense: There are scattered areas of fibroglandular density. FINDINGS: There is no evidence of suspicious mass, calcification, or architectural distortion to sugg est malignancy in either breast. There has been no suspicious interval change. IMPRESSION: 1. No mammographic evidence of malignancy. 2. Recommend routine screening mammography in one year. BI-RADS Category 1: Negative Reviewed, dictated and finalized at location [] IMPRESSION: 1. No mammographic evidence of malignancy. 2. Recommend routine screening mammography in one year. BI-RADS Category 1: Negative "
== END 2024-12-16 07:19 | disposition home or self-care (01) ==
LOC: ANHIMG 07:22
PROVIDERS: PCP Family Medicine; Visit Provider Obstetrics & Gynecology
DX: Z12.31 Encounter for screening mammogram for malignant neoplasm of breast (principal)
CPT/HCPCS: 77063; 77067

== ENCOUNTER 2024-12-21 08:10 | Outpatient (CLI) | payer MEDICARE, SELFPAY ==
--- NOTE | ~2024-12-21 | US_ITS ---
US abdomen complete EXAMINATION: US Abdomen Complete INDICATION: Epigastric pain PROCEDURE: Realtime High Resolution abdomen ultrasound. COMPARISON: CT dated 11/19/2023 FINDINGS: Status post cholecystectomy. Common bile duct measures 6 mm. Liver echotexture within normal limits without focal mass. There are multiple liver cysts, largest me asuring 3.4 cm. Pancreas within normal limits. Pancreatic tail is obscured by bowel gas. Spleen is unremarkeable. Renal echotexture is within normal limits bilaterally without hydronephrosis, contour deforming mass or renal stone. Right kidney measures 9.9 cm. Left kidney measures 12.7 cm. 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 Visualized aspects of the aorta and IVC are within normal limits. Portal vein is patent. IMPRESSION: 1: Liver cysts. 2: Status post cholecystectomy. Reviewed, dictated and finalized at location []
--- OUTSIDE RECORDS SUMMARY | 2024-12-21 08:15 | XMS_ITS | Continuity of Care Document ---
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 [address] [facility], [address], [place], [place], [id number] , [place]. [phone] Referring Provider: Channing Galindo, [address] [place] [address] [address], [place], [address]. tel:[phone] sulting Provider: Eliazar De La Torre, [address] [place] [address], [place], [address]. tel:[phone] Family History Family Member Type Diagnosis Age [...]
== END 2024-12-21 08:11 | disposition home or self-care (01) ==
PROVIDERS: PCP Family Medicine; Visit Provider Nurse Practitioner Family
DX: R10.13 Epigastric pain (principal); K76.89 Other specified diseases of liver
CPT/HCPCS: 76700

== ENCOUNTER 2025-01-23 01:03 | Day surgery (SDC) | payer MEDICARE, SELFPAY ==
[2025-01-10 10:16] VITALS: BMI 31.1
[2025-01-23 08:05] VITALS: BP 144/69; PULSE 65; RESP 18; TEMP 36.9; O2SAT 99; BMI 31.3
[2025-01-23] MEDS: SIMETHICONE ORAL SUSPENSION 20 MG/0.3 ML 30 ML BOTTLE 1.8 ML PO (08:18)
[2025-01-23] MEDS: LACTATED RINGERS 1,000 ML 150 ML IV CONT (08:24)
--- NOTE | 2025-01-23 08:24 | P.PNAN_ITS ---
Anes - Initial Pre Proc Eval Procedure: Operation Date: 01/23/25 09:00 Proposed Procedures p Esophagogastroduodenoscopy - Alon Ceja MD Date/Time: 01/23/25 08:24 Surgeon: Alon Ceja MD Pre Op Diagnosis: Epigastric pain, GERD Patient Data Age: 69 Gender: F Height: 1.65 m Weight: 85.4 kg Last Vital Signs Temp 36.9 C 01/23/25 08:05 Pulse 65 01/23/25 08:05 Resp 18 01/23/25 08:05 BP 144/69 H 01/23/25 08:05 Pulse Ox 99 01/23/25 08:05 O2 Del Method Room Air 01/23/25 08:05 Allergies Allergy/AdvReac Type Severity Reaction Status Date / Time iohexol (From contrast - CT, Allergy Severe Throat Verified 01/23/25 08:10 X-RAY) swelling, hives hydromorphone Allergy Intermediate Hives Verified 01/23/25 08:10 povidone-iodine (From Allergy Intermediate Rash Verified 01/23/25 08:10 Betadine) clioquinol (From Vioform-HC) Allergy Mild Swelling Verified 01/23/25 08:10 hydrocortisone (From Allergy Mild Swelling Verified 01/23/25 08:10 Vioform-HC) cimetidine AdvReac Intermediate Gastrointestinal Verified 01/23/25 08:10 Upset lisinopril AdvReac Intermediate Headache Verified 01/23/25 08:10 theophylline AdvReac Intermediate Itching Verified 01/23/25 08:10 Home Medications ?Medication ?Instructions ?Recorded ?Confirmed ?Type multivitamin (One-A-Day Essential 1 tablet PO DAILY 06/09/19 01/23/25 History tablet) L.acidoph,paracasei,B.animalis 10 10 cell PO DAILY 11/18/20 01/23/25 History billion cell capsule (Digestive Advantage Advanced Probiotic) coenzyme [id number]-[id number] E 100 mg-100 1 cap PO DAILY 11/18/20 01/10/25 History unit capsule calcium 333 mg-vit D3 200 2 tablet PO DAILY 10/08/21 01/23/25 History unit-magnesium 133 mg-zinc 5 mg tablet melatonin 10 mg capsule 10 mg PO QHS PRN Insomnia 12/01/21 01/10/25 History omega 2-hxn-yxi-fish oil 100 1 cap PO DAILY 02/05/22 01/10/25 History mg-160 mg-1,000 mg capsule (Fish Oil) diphenhydramine HCl 12.5 mg 12.5 mg PO QHS PRN Allergy Symptoms 07/03/22 01/23/25 History chewable tablet (Children's Benadryl Allergy) turmeric root extract 500 mg 500 mg PO DAILY 07/03/22 01/10/25 History capsule albuterol sulfate 90 mcg/actuation 1 - 2 puff inhalation Q4-6H PRN 09/04/22 01/10/25 Rx aerosol inhaler shortness of breath or wheezing #8.5 grams cholecalciferol (vitamin D3) 25 75 mcg (3 x 25 mcg (1,000 unit)) 12/01/22 01/10/25 Rx mcg (1,000 unit) tablet PO DAILY 90 days #270 tabs omeprazole 20 mg capsule,delayed 20 mg PO BID #180 caps 11/16/23 01/23/25 Rx release valsartan 320 mg tablet 320 mg PO DAILY #90 tabs 11/16/23 01/23/25 Rx ibuprofen 800 mg tablet 800 mg PO TID PRN pain 7 days #21 01/07/24 01/10/25 Rx tabs garlic 2,000 mg capsule 2,400 mg PO DAILY 12/05/24 01/23/25 History pravastatin 10 mg tablet See Rx Instructions .Route 12/12/24 01/23/25 Rx .COMPLEX #90 tabs carvedilol 6.25 mg tablet 6.25 mg PO Q12H #180 tabs 01/05/25 01/23/25 Rx blood sugar diagnostic (OneTouch #100 ea 01/08/25 Rx Verio test strips) lancets 25 gauge #100 ea 01/08/25 Rx calcium 2 tablet PO DAILY 01/10/25 01/23/25 History coQ10 (ubiquinol) 100 mg capsule 100 mg PO DAILY 01/10/25 01/23/25 History omega-3 417 mg-dha 120 mg-epa-276 1 cap PO DAILY 01/10/25 01/23/25 History mg-fish oil 600 mg-turmeric capsule pharma pure sugar mathieu See Rx Instructions PO TIDWMEAL 01/10/25 01/23/25 History thyroid support 2 cap PO DAILY 01/10/25 01/23/25 History verbarine 1 tablet PO BID 01/10/25 01/23/25 History vitamin D3-vitamin K2 1 tablet PO DAILY 01/10/25 01/23/25 History Patient hx anesthesia problems: none Family hx anesthesia problems: none Results Review: All pre-operative results and documents have been reviewed as part of the pre- operative evaluation. [facility], [facility] Past Medical History Medical History Liver cyst Epigastric abdominal pain Thyroid disorder Irritable bowel syndrome Diabetes Anemia COVID-19 History of vaginal delivery Diverticulitis History of open sigmoidectomy Obesity Osteopenia Goiter Diabetes type 2, controlled High serum low density lipoprotein (LDL) cholesterol Essential (primary) hypertension Asthma Thyroid Nodule Hypothyroidism Hyperglycemia OZIEL (obstructive sleep apnea) Pulmonary nodule Vitamin D deficiency, unspecified Osteopenia Surgical History Surgical History History of cholecystectomy History of section x2 History of dilation and curettage x3 H/O colonoscopy History of total knee arthroplasty Right 11/28/14 History of arthroscopy of left knee 01/27/01 and 07/19/15 History of arthroscopy of right knee 07/31/99 and 12/17/10 Family History Family History Mother Hypertension Asthma Family history of hepatitis Family history of lung cancer Patient's mother is Father Patient's father is Diabetes mellitus Heart disease Grandparent Heart disease Cerebrovascular accident Social History Social History Smoking status: Never smoker Second hand tobacco smoke exposure: No Additional smoking assessment comments: DENIES ANY FORM OF TOBACCO USE Alcohol intake: never Substance use: never Substance use type: does not use Lack of Transportation: No Lack of Food: Never True Current Housing: I Have Housing Concerned About Future Housing: No Difficulty Paying Gas/Electric Bills: No Difficulty Paying for Meds: No Currently Unemployed: No Education: Trade/Vocational Certificate Difficulty w/ Childcare or Family Care: No Living arrangements: alone Gender identity (if verbalized by the patient): Female Sexual Orientation (if Verbalized by the Patient): Straight or Heterosexual Spiritual care concerns: No Anes - Eval Final PreProcedure Day of Procedure 01/23/25 08:24 Patient weight: obese Heart: regular rate and rhythm Lungs: clear to auscultation Airway: Mallampati scale class II Neurological: alert and oriented Last oral intake: >/= 8 hours ASA classification: III Emergent: no Anesthetic plan: proceed Anesthesia type and monitoring: general GIVS and standard monitoring Results Review: All pre-operative results and documents have been reviewed as part of the pre- operative evaluation. Informed Consent: The patient's anesthetic plan and its attendant risks and benefits were discussed with the patient/family/POA. Questions were solicited and answers provided to the satisfaction of the patient/family/POA.
[2025-01-23 08:27] LABS: Glucose Point of Care 116 mg/dl (65-105)
--- NOTE | 2025-01-23 09:16 | PM.IMHP ---
H&P: HPI History of Present Illness Date/Time: 01/23/25 09:16 Chief Complaint: Epigastric pain Narrative: the patient has been suffering from epigastric pain for 2-3 weeks, not relieved by omeprazole which she was taking prior to the onset of pain. She is referred for EGD. She denies NSAID or aspirin consumption. There is no heartburn or dysphagia associated. Review of Systems Review of Systems: All systems reviewed & are unremarkable except as noted in HPI and below PMFSH Past Medical History Medical History Liver cyst Epigastric abdominal pain Thyroid disorder Irritable bowel syndrome Diabetes Anemia COVID-19 History of vaginal delivery Diverticulitis History of open sigmoidectomy Obesity Osteopenia Goiter Diabetes type 2, controlled High serum low density lipoprotein (LDL) cholesterol Essential (primary) hypertension Asthma Thyroid Nodule Hypothyroidism Hyperglycemia OZIEL (obstructive sleep apnea) Pulmonary nodule Vitamin D deficiency, unspecified Osteopenia Surgical History Surgical History History of cholecystectomy History of section x2 History of dilation and curettage x3 H/O colonoscopy History of total knee arthroplasty Right 11/28/14 History of arthroscopy of left knee 01/27/01 and 07/19/15 History of arthroscopy of right knee 07/31/99 and 12/17/10 Family History Family History Mother Hypertension Asthma Family history of hepatitis Family history of lung cancer Patient's mother is Father Patient's father is Diabetes mellitus Heart disease Grandparent Heart disease Cerebrovascular accident Social History Social History Smoking status: Never smoker Second hand tobacco smoke exposure: No Additional smoking assessment comments: DENIES ANY FORM OF TOBACCO USE Alcohol intake: never Substance use: never Substance use type: does not use Lack of Transportation: No Lack of Food: Never True Current Housing: I Have Housing Concerned About Future Housing: No Difficulty Paying Gas/Electric Bills: No Difficulty Paying for Meds: No Currently Unemployed: No Education: Trade/Vocational Certificate Difficulty w/ Childcare or Family Care: No Living arrangements: alone Gender identity (if verbalized by the patient): Female Sexual Orientation (if Verbalized by the Patient): Straight or Heterosexual Spiritual care concerns: No Meds Home Medications and Allergies Home Medications ?Medication ?Instructions ?Recorded ?Confirmed ?Type multivitamin (One-A-Day Essential 1 tablet PO DAILY 06/09/19 01/23/25 History tablet) L.acidoph,paracasei,B.animalis 10 10 cell PO DAILY 11/18/20 01/23/25 History billion cell capsule (Digestive Advantage Advanced Probiotic) calcium 333 mg-vit D3 200 2 tablet PO DAILY 10/08/21 01/23/25 History unit-magnesium 133 mg-zinc 5 mg tablet melatonin 10 mg capsule 10 mg PO QHS PRN Insomnia 12/01/21 01/10/25 History diphenhydramine HCl 12.5 mg 12.5 mg PO QHS PRN Allergy Symptoms 07/03/22 01/23/25 History chewable tablet (Children's Benadryl Allergy) albuterol sulfate 90 mcg/actuation 1 - 2 puff inhalation Q4-6H PRN 09/04/22 01/10/25 Rx aerosol inhaler shortness of breath or wheezing #8.5 grams omeprazole 20 mg capsule,delayed 20 mg PO BID #180 caps 11/16/23 01/23/25 Rx release valsartan 320 mg tablet 320 mg PO DAILY #90 tabs 11/16/23 01/23/25 Rx ibuprofen 800 mg tablet 800 mg PO TID PRN pain 7 days #21 01/07/24 01/10/25 Rx tabs garlic 2,000 mg capsule 2,400 mg PO DAILY 12/05/24 01/23/25 History pravastatin 10 mg tablet See Rx Instructions .Route 12/12/24 01/23/25 Rx .COMPLEX #90 tabs carvedilol 6.25 mg tablet 6.25 mg PO Q12H #180 tabs 01/05/25 01/23/25 Rx blood sugar diagnostic (OneTouch #100 ea 01/08/25 Rx Verio test strips) lancets 25 gauge #100 ea 01/08/25 Rx calcium 2 tablet PO DAILY 01/10/25 01/23/25 History coQ10 (ubiquinol) 100 mg capsule 100 mg PO DAILY 01/10/25 01/23/25 History omega-3 417 mg-dha 120 mg-epa-276 1 cap PO DAILY 01/10/25 01/23/25 History mg-fish oil 600 mg-turmeric capsule pharma pure sugar mathieu See Rx Instructions PO TIDWMEAL 01/10/25 01/23/25 History thyroid support 2 cap PO DAILY 01/10/25 01/23/25 History verbarine 1 tablet PO BID 01/10/25 01/23/25 History vitamin D3-vitamin K2 1 tablet PO DAILY 01/10/25 01/23/25 History Allergies Allergy/AdvReac Type Severity Reaction Status Date / Time iohexol (From contrast - CT, Allergy Severe Throat Verified 01/23/25 08:10 X-RAY) swelling, hives hydromorphone Allergy Intermediate Hives Verified 01/23/25 08:10 povidone-iodine (From Allergy Intermediate Rash Verified 01/23/25 08:10 Betadine) clioquinol (From Vioform-HC) Allergy Mild Swelling Verified 01/23/25 08:10 hydrocortisone (From Allergy Mild Swelling Verified 01/23/25 08:10 Vioform-HC) cimetidine AdvReac Intermediate Gastrointestinal Verified 01/23/25 08:10 Upset lisinopril AdvReac Intermediate Headache Verified 01/23/25 08:10 theophylline AdvReac Intermediate Itching Verified 01/23/25 08:10 Vital Signs Vital Signs - 24 hr 01/23/25 08:05 Temperature 98.4 F Pulse Rate 65 Respiratory Rate 18 Blood Pressure 144/69 H Pulse Oximetry 99 Oxygen Delivery Room Air Exam Const: General: cooperative and healthy appearing Resp: Effort & Inspection: normal respiratory effort and able to speak in complete sentences Auscultation: clear to auscultation bilaterally Cardio: Rate: regular rate Rhythm: regular rhythm GI: Inspection: normal to inspection GI Palp: No No hepatosplenomegaly present Auscultation: normal bowel sounds Rectal Exam: deferred Skin: General skin exam: normal color Psych: Appearance: grossly normal Mental Status: mental status grossly normal Assessment and Plan Assessment and plan (1) Epigastric abdominal pain: Code(s): R10.13 - Epigastric pain Status: Acute Assessment and Plan: The patient is deemed a good candidate for the procedure. Consent signed. Will proceed.
--- NOTE | 2025-01-23 09:30 | S_PTH ---
PATIENT: Erin Cameron LOC: [facility]#:[id number] AGE/SX: 69/F ROOM: RE01/23/[address]: Alon Ceja MD : [id number] BED: DIS: 01/23/2025 SPEC #: [id number] RECD: 01/23/25 09:55 STATUS: TAVON REQ #: [id number] MERVAT: 01/23/25 09:[address]: Alon Ceja DEPT: [facility] Surgical RECD BY: Raegan Caceres ENTERED: 01/23/25 09:56 SP TYPE: Surgical OTHR DR: Zhang Gant MD Tissues: A - Gastric Biopsy B - Gastric Biopsy Procedures: Hematoxylin and Eosin Stain Gross and Microscopic Level 4
[2025-01-23 09:34] VITALS: BP 122/67; PULSE 67; RESP 22; O2SAT 98
[2025-01-23 09:44] VITALS: BP 130/61; PULSE 66; RESP 19; O2SAT 98
[2025-01-23 09:54] VITALS: BP 126/71; PULSE 60; RESP 20; O2SAT 98
== END 2025-01-23 10:03 | disposition home or self-care (01) ==
PROVIDERS: PCP Family Medicine; Referring Provider Nurse Practitioner Family; Visit Provider Internal Medicine Gastroenterology
PROC: 0DJ08ZZ Inspection of Upper Intestinal Tract, Via Natural or Artificial Opening Endoscopic (ICD-10-PCS; CPT 43239; principal; 2025-01-23 09:00)
DX: K21.9 Gastro-esophageal reflux disease without esophagitis (principal); K29.50 Unspecified chronic gastritis without bleeding; K31.7 Polyp of stomach and duodenum; K31.89 Other diseases of stomach and duodenum; E03.9 Hypothyroidism, unspecified; I10 Essential (primary) hypertension; J45.909 Unspecified asthma, uncomplicated; G47.33 Obstructive sleep apnea (adult) (pediatric); E55.9 Vitamin D deficiency, unspecified; K58.9 Irritable bowel syndrome, unspecified; E11.9 Type 2 diabetes mellitus without complications; D64.9 Anemia, unspecified; M85.88 Other specified disorders of bone density and structure, other site; E66.9 Obesity, unspecified; Z68.31 Body mass index [BMI] 31.0-31.9, adult; Z79.51 Long term (current) use of inhaled steroids; Z79.1 Long term (current) use of non-steroidal anti-inflammatories (NSAID); Z98.890 Other specified postprocedural states; Z90.49 Acquired absence of other specified parts of digestive tract; Z87.19 Personal history of other diseases of the digestive system; Z80.1 Family history of malignant neoplasm of trachea, bronchus and lung; Z82.49 Family history of ischemic heart disease and other diseases of the circulatory system
CPT/HCPCS: 43239; 82948; 88305; J2003; J2704; J7120

== ENCOUNTER 2025-08-01 11:24 | Outpatient (CLI) | payer MEDICARE, SELFPAY ==
--- NOTE | ~2025-08-01 | XR_ITS ---
EXAMINATION: XR abdomen obstructive series DATE: 08/01/2025 11:42 INDICATION: Abdominal pain TECHNIQUE: Supine and upright views of the abdomen. FINDINGS: Supine and upright views of abdomen The visualized lung parenchyma is normal.. There is a nonobstructive bowel gas pattern. Gas and stool are seen throughout the colon to the level of the rectum. There is no free air. There are cholecystectomy clips. There is osteitis pubis. There is mild dextrocurvature of the lumbar spine. There are pelvic phleboliths. IMPRESSION: 1. No acute abdominal abnormality. Reviewed, dictated and finalized at location O. [facility]
== END 2025-08-01 11:25 | disposition home or self-care (01) ==
LOC: MICIMG 11:25
PROVIDERS: PCP Family Medicine; Visit Provider Family Medicine
DX: R10.9 Unspecified abdominal pain (principal); R19.7 Diarrhea, unspecified
CPT/HCPCS: 74019